=== PATIENT | male | born 1945 | race Caucasian/White ===

== ENCOUNTER → 2017-09-09 10:46 | Outpatient (CLI) | payer MEDICARE, BC, SELFPAY ==
[2017-09-09 12:37] LABS: AST(SGOT) 25 U/L (15-37); Alanine Aminotransfer ALT/SGPT 15 U/L (16-61); Albumin, Serum 3.8 g/dL (3.2-5.0); Alkaline Phosphatase 74 U/L (45-117); Anion Gap 6 (5-15); BUN 15 mg/dL (7-18); BUN/Creat Ratio 12.4 RATIO (10-20); Calcium,Total 8.8 mg/dL (8.5-10.1); Chloride 103 mmol/L (98-107); Creatinine, Serum 1.21 mg/dL (0.70-1.30); EST Glomerular Filtration Rate 63 mL/min (>60); Est Glom Filt Rate - Afr Amer 76 mL/min (>60); Glucose 96 mg/dL (74-106); Potassium 3.6 mmol/L (3.5-5.1); Protein, Total 7.8 g/dL (6.4-8.2); Sodium Level 139 mmol/L (136-145); Thyroid Stim Hormone (TSH) 2.79 uIU/mL (0.358-3.74)
== END ==
PROVIDERS: Visit Provider Family Medicine
DX: E03.9 Hypothyroidism, unspecified (principal); E78.5 Hyperlipidemia, unspecified
CPT/HCPCS: 36415; 80053; 84443

== ENCOUNTER → 2017-10-14 16:09 | Outpatient (CLI) | payer MEDICARE, BC, SELFPAY ==
--- NOTE | 2017-10-14 10:30 | LES_PTH ---
PATIENT: DAVID CASTANON LOC: [facility] U#:[id number] AGE/SX: 80/M ROOM: RE10/14/[address]: Dr. Sreedhar Gilman MD : 1945 BED: DIS: SPEC #: [id number] RECD: 10/14/17 14:31 STATUS: ZAKIA EVELYN #: [id number] JUAN RAMON: 10/14/17 10:[address]: Sreedhar Gilman DEPT: SURGICAL PATHOLOGY RECD BY: Shaila Nieto Tissues: A - Skin of arm B - Skin of back, NOS Procedures: Special Stain Group I Surgery Specimen Level IV GMS Stain (control) HEADER OPERATION: Suspicious lesion removal PRE-OP DIAGNOSIS: Suspicious lesion TISSUE SUBMITTED: A ? Left arm lesion, B ? Right mid back MICROSCOPIC DIAGNOSIS A. Left arm lesion, punch biopsy: Psoriasiform epidermal hyperplasia. Dermal chronic inflammation. Solar elastosis. Special stain for fungi is negative for organisms; matched control is appropriate. Negative for malignancy. B. Back lesion, biopsy: Seborrheic keratosis with focal verrucous features. Negative for malignancy. GABRIELA:anjel 10/15/17 MICROSCOPIC DESCRIPTION Slides are reviewed. GROSS DESCRIPTION A - Received in fixative is one container labeled with the patient's name and designated left arm. The specimen consists of a punch biopsy of staples-brown skin measuring 0.4 cm in diameter and 0.3 cm in length. The specimen is totally submitted in one cassette. B - Received in fixative is one container labeled with the patient's name and designated back lesion. The specimen consists of a disc-shaped piece of staples-brown skin measuring 0.7 cm in diameter and 0.2 cm in depth. The specimen is inked and submitted entirely in one cassette and will be sectioned at the time of embedding. / GABRIELA:anjel 10/14/17 TC:1 CPT: 81687 x2, [id number]
== END ==
PROVIDERS: Family Provider Family Medicine; PCP Family Medicine; Visit Provider Family Medicine
DX: L30.8 Other specified dermatitis (principal); L57.8 Other skin changes due to chronic exposure to nonionizing radiation; L82.1 Other seborrheic keratosis
CPT/HCPCS: 88305; 88312

== ENCOUNTER → 2018-04-21 13:51 | Outpatient (CLI) | payer MEDICARE, BC, SELFPAY ==
[2018-04-21 16:03] LABS: Anion Gap 6 (5-15); BUN 15 mg/dL (7-18); BUN/Creat Ratio 13.3 RATIO (10-20); Chloride 108 mmol/L (98-107); Cholesterol 174 mg/dL (200); Creatinine, Serum 1.13 mg/dL (0.70-1.30); EST Glomerular Filtration Rate 68 mL/min (>60); Est Glom Filt Rate - Afr Amer 82 mL/min (>60); Glucose 86 mg/dL (74-106); High Density Lipoprotein 37 mg/dL; Potassium 4.1 mmol/L (3.5-5.1); Sodium Level 142 mmol/L (136-145); Thyroid Stim Hormone (TSH) 0.25 uIU/mL (0.358-3.74); Triglycerides 167 mg/dL; Very Low Density Lipoprotein 33 mg/dL (5-40)
== END ==
PROVIDERS: Family Provider Family Medicine; PCP Family Medicine; Visit Provider Family Medicine
DX: I10 Essential (primary) hypertension (principal); E03.9 Hypothyroidism, unspecified
CPT/HCPCS: 36415; 80048; 80061; 84443

== ENCOUNTER → 2018-10-20 13:59 | Outpatient (CLI) | payer MEDICARE, BC, SELFPAY ==
[2018-10-20 16:29] LABS: Anion Gap 4 (5-15); BUN 18 mg/dL (7-18); BUN/Creat Ratio 14.3 RATIO (10-20); Calcium,Total 8.9 mg/dL (8.5-10.1); Chloride 108 mmol/L (98-107); Cholesterol 196 mg/dL (200); Creatinine, Serum 1.26 mg/dL (0.70-1.30); EST Glomerular Filtration Rate 60 mL/min (>60); Est Glom Filt Rate - Afr Amer 72 mL/min (>60); Free T3 2.7 pg/mL (2.18-3.98); Glucose 90 mg/dL (74-106); High Density Lipoprotein 41 mg/dL; Potassium 4.3 mmol/L (3.5-5.1); Sodium Level 140 mmol/L (136-145); T4 Total, Thyroxin 9.6 ug/dL (4.5-12.1); Triglycerides 131 mg/dL; Very Low Density Lipoprotein 26 mg/dL (5-40)
== END ==
PROVIDERS: Family Provider Family Medicine; PCP Family Medicine; Visit Provider Family Medicine
DX: I10 Essential (primary) hypertension (principal); E03.9 Hypothyroidism, unspecified
CPT/HCPCS: 36415; 80048; 80061; 84436; 84443; 84481

== ENCOUNTER → 2019-05-07 14:59 | Outpatient (CLI) | payer MEDICARE, BC, SELFPAY ==
[2019-05-07 16:31] LABS: Anion Gap 3 (5-15); BUN 19 mg/dL (7-18); BUN/Creat Ratio 14.2 RATIO (10-20); Calcium,Total 9.1 mg/dL (8.5-10.1); Chloride 106 mmol/L (98-107); Cholesterol 205 mg/dL (200); Creatinine, Serum 1.34 mg/dL (0.70-1.30); EST Glomerular Filtration Rate 56 mL/min (>60); Est Glom Filt Rate - Afr Amer 67 mL/min (>60); Glucose 94 mg/dL (74-106); High Density Lipoprotein 42 mg/dL; Potassium 4.3 mmol/L (3.5-5.1); Sodium Level 137 mmol/L (136-145); Thyroid Stim Hormone (TSH) 1.22 uIU/mL (0.358-3.74); Triglycerides 190 mg/dL; Very Low Density Lipoprotein 38 mg/dL (5-40)
== END ==
PROVIDERS: Family Provider Family Medicine; PCP Family Medicine; Referring Provider Family Medicine; Visit Provider Family Medicine
DX: E78.5 Hyperlipidemia, unspecified (principal); I10 Essential (primary) hypertension; E03.9 Hypothyroidism, unspecified
CPT/HCPCS: 36415; 80048; 80061; 84443

== ENCOUNTER → 2019-11-04 13:58 | Outpatient (CLI) | payer MEDICARE, BC, SELFPAY ==
[2019-11-04 16:00] LABS: Anion Gap 4 (5-15); BUN 17 mg/dL (7-18); BUN/Creat Ratio 13.4 RATIO (10-20); Calcium,Total 8.9 mg/dL (8.5-10.1); Chloride 107 mmol/L (98-107); Cholesterol 191 mg/dL (200); Creatinine, Serum 1.27 mg/dL (0.70-1.30); EST Glomerular Filtration Rate 59 mL/min (>60); Est Glom Filt Rate - Afr Amer 71 mL/min (>60); Free T3 2.9 pg/mL (2.18-3.98); Glucose 88 mg/dL (74-106); High Density Lipoprotein 44 mg/dL; Potassium 4.2 mmol/L (3.5-5.1); Sodium Level 139 mmol/L (136-145); Thyroid Stim Hormone (TSH) 1.39 uIU/mL (0.358-3.74); Triglycerides 149 mg/dL; Very Low Density Lipoprotein 30 mg/dL (5-40)
== END ==
PROVIDERS: PCP Family Medicine; Referring Provider Family Medicine; Visit Provider Family Medicine
DX: I10 Essential (primary) hypertension (principal); E03.9 Hypothyroidism, unspecified
CPT/HCPCS: 36415; 80048; 80061; 84443; 84481

== ENCOUNTER → 2020-05-05 13:57 | Outpatient (CLI) | payer MEDICARE, BC, SELFPAY ==
[2020-05-05 18:14] LABS: Anion Gap 4 (5-15); BUN 13 mg/dL (7-18); BUN/Creat Ratio 10.3 RATIO (10-20); Calcium,Total 9.1 mg/dL (8.5-10.1); Chloride 106 mmol/L (98-107); Cholesterol 197 mg/dL (200); Creatinine, Serum 1.26 mg/dL (0.70-1.30); EST Glomerular Filtration Rate 59 mL/min (>60); Est Glom Filt Rate - Afr Amer 72 mL/min (>60); Free T3 2.8 pg/mL (2.18-3.98); Glucose 87 mg/dL (74-106); High Density Lipoprotein 43 mg/dL; Potassium 4.5 mmol/L (3.5-5.1); Sodium Level 140 mmol/L (136-145); T4 Free Direct 1.78 ng/dL (0.76-1.46); Thyroid Stim Hormone (TSH) 1.86 uIU/mL (0.358-3.74); Triglycerides 172 mg/dL; Very Low Density Lipoprotein 34 mg/dL (5-40)
== END ==
PROVIDERS: PCP Family Medicine; Referring Provider Family Medicine; Visit Provider Family Medicine
DX: I10 Essential (primary) hypertension (principal); E03.9 Hypothyroidism, unspecified
CPT/HCPCS: 36415; 80048; 80061; 84439; 84443; 84481

== ENCOUNTER → 2020-11-04 15:36 | Outpatient (CLI) | payer MEDICARE, BC, SELFPAY ==
[2020-11-04 18:11] LABS: Anion Gap 3 (5-15); BUN 18 mg/dL (7-18); BUN/Creat Ratio 13.4 RATIO (10-20); Calcium,Total 9.1 mg/dL (8.5-10.1); Chloride 105 mmol/L (98-107); Cholesterol 203 mg/dL (200); Creatinine, Serum 1.34 mg/dL (0.70-1.30); EST Glomerular Filtration Rate 55 mL/min (>60); Est Glom Filt Rate - Afr Amer 67 mL/min (>60); Free T3 2.7 pg/mL (2.18-3.98); Glucose 92 mg/dL (74-106); High Density Lipoprotein 42 mg/dL; Potassium 4.4 mmol/L (3.5-5.1); Sodium Level 138 mmol/L (136-145); T4 Total, Thyroxin 9.1 ug/dL (4.5-12.1); Triglycerides 193 mg/dL; Very Low Density Lipoprotein 39 mg/dL (5-40)
== END ==
PROVIDERS: PCP Family Medicine; Visit Provider Family Medicine
DX: I10 Essential (primary) hypertension (principal); E03.9 Hypothyroidism, unspecified
CPT/HCPCS: 36415; 80048; 80061; 84436; 84443; 84481

== ENCOUNTER → 2021-02-03 08:13 | Outpatient (CLI) | payer MEDICARE, BC, SELFPAY ==
--- NOTE | 2021-02-03 08:14 | MRI_ITS ---
STUDY: MRI LUMBAR SPINE WITHOUT CONTRAST REASON FOR EXAM: Male, 75 years old. back pain TECHNIQUE: Standardized fat and water weighted pulse sequences were obtained in the sagittal and axial following administration of . COMPARISON: None FINDINGS: T12-L1: Normal endplates. Normal disc height, hydration and morphology. Normal bilateral facet joints. Normal central canal and bilateral lateral recesses. Normal bilateral intervertebral neural foramina. Conus medullaris terminates at T12-L1. Cauda equina is moderately to severely compressed at L4-L5. L1-2: Normal endplates. Normal disc height, hydration and morphology. Normal bilateral facet joints. Normal central canal and bilateral lateral recesses. Normal bilateral intervertebral neural foramina. L2-3: Normal endplates. Normal disc height, hydration and morphology. Normal bilateral facet joints. Normal central canal and bilateral lateral recesses. Normal bilateral intervertebral neural foramina. L3-4: Normal endplates. Normal disc height, hydration and mildly degenerative morphology. Normal bilateral facet joints. Normal central canal and bilateral lateral recesses. Foramina are mildly to moderately compressed. L4-5: Normal endplates. Normal disc height, hydration and degenerative morphology. Normal bilateral facet joints. Thecal sac is moderately to severely stenosed. Foramina are mildly stenotic. Lateral recesses are stenotic. L5-S1: Normal endplates. Normal disc height, hydration and morphology. Normal bilateral facet joints. Normal central canal and bilateral lateral recesses. Foramina are mildly to moderately compressed. Normal visualized sacral ala. Normal visualized paraspinous soft tissue structures. 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 Neurosurgical consultation advised. Electronically Signed: Irving Edmond MD at 18:32 EDT Tel , Service support ,
== END ==
PROVIDERS: PCP Family Medicine; Referring Provider Family Medicine; Visit Provider Family Medicine
DX: M54.9 Dorsalgia, unspecified (principal)
CPT/HCPCS: 72148

== ENCOUNTER 2021-05-23 10:21 | Observation (INO) | payer MEDICARE, BC, SELFPAY ==
--- NOTE | 2021-05-10 12:50 | EKG12_ITS ---
Test Reason : PREOP Blood Pressure : / mmHG Vent. Rate : 054 BPM Atrial Rate : 054 BPM P-R Int : 184 ms QRS Dur : 092 ms QT Int : 424 ms P-R-T Axes : 032 001 028 degrees QTc Int : 402 ms Sinus bradycardia with Premature supraventricular complexes Otherwise normal ECG Confirmed by JESSEE LEAL, LYNNETTE ([id number]), design editor EUGENE CABALLERO ([id number]) on 05/11/2021 9:35:24 AM Referred By: Myron Alonso Confirmed By:LYNNETTE HOOKS MD
[2021-05-10 13:45] LABS: Absolute Lymphocyte Count 2.68 X10^3/uL (0.83-4.51); Absolute Neutrophil Count 6.6 X10^3/uL (2.0-7.7); Basophil# 0.06 X10^3/uL; Basophil% 0.6 % (0-1); Eosinophil# 0.25 X10^3/uL; Eosinophils% 2.4 % (0-5); Hematocrit 39.5 % (40-54); Hemoglobin 12.6 g/dL (13.0-16.5); Lymphocyte # 2.68 X10^3/ul (0.83-4.51); Lymphocyte % 25.9 % (19-41); Mean Corp Hgb Conc 31.9 g/dL (32-36); Mean Corpuscular Hgb 31.2 pg (27.0-32.0); Mean Corpuscular Volume 97.8 fL (80-94); Mean Platelet Vol. 11.1 fl (6.2-12.0); Monocyte# 0.73 X10^3/uL; Monocyte% 7.1 % (0-10); NRBC Flagged by Analyzer 0 % (0-5); Neutrophil # 6.56 X10^3/uL (2.7-7.7); Neutrophil % 63.5 % (47-70); Platelet Count 176 K/mm3 (150-450); RBC Distribution Width CV 13.3 % (11.6-14.6); RBC Distribution Width SD 47.8 fl (35.1-43.9); Red Blood Count 4.04 M/mm3 (4.6-6.2); White Blood Count 10.3 K/mm3 (4.4-11.0)
[2021-05-10 13:56] LABS: International Normalized Ratio 1.1; Partial Thromboplast Time 26.8 Seconds (24.1-36.2); Prothrombin Time (Protime)PT. 13.1 SECONDS (11.7-14.9)
[2021-05-10 14:13] LABS: Magnesium 2.1 mg/dL (1.6-2.6)
[2021-05-10 14:33] LABS: Anion Gap 4 (5-15); BUN 22 mg/dL (7-18); BUN/Creat Ratio 15.8 RATIO (10-20); Calcium,Total 8.9 mg/dL (8.5-10.1); Chloride 106 mmol/L (98-107); Creatinine, Serum 1.39 mg/dL (0.70-1.30); EST Glomerular Filtration Rate 53 mL/min (>60); Est Glom Filt Rate - Afr Amer 64 mL/min (>60); Glucose 93 mg/dL (74-106); Potassium 4.1 mmol/L (3.5-5.1); Sodium Level 139 mmol/L (136-145)
[2021-05-10 15:00] LABS: HIV - WCH Non-Reactive (Nonreactive); Hepatitis B Surface Antibody Non-Reactive; Hepatitis C Antibody Non-Reactive (Nonreactive)
[2021-05-12 12:08] LABS: Thyroid Stim Hormone (TSH) 2.27 uIU/mL (0.358-3.74)
[2021-05-12 12:40] LABS: Hepatitis A AB, Total Negative (Negative)
--- NOTE | 2021-05-22 10:47 | HP.PCM_ITS ---
History and Physical Date of Admission: 05/23/21 [facility] [id number] [phone] OFFICE VISITDate of Service: 02/13/21 MR#:[id number]:[id number]: DAVID CASTANONRep #:[id number] Provider:Dr. Myron Alonso, DOAge/Sex: 75/M Location:[place]:Signed Intake Vital Signs 02/13/21 14:29 Height 6 ft Weight: 185 lb BMI 25.0 Intake Visit Reasons: LUMBAR SPINE Accompanied by: Spouse Is patient in pain?: Yes Allergies No Known Allergies Allergy (Verified 02/13/21 14:30) Medications L.acidophilus-B.lactis-B.longum 15 billion cell capsule 1 cap PO DAILY 02/13/21 [History Confirmed 02/13/21] aspirin 81 mg tablet,delayed release 81 mg PO DAILY 02/13/21 [History Confirmed 02/13/21] clopidogrel 75 mg tablet ea PO 02/13/21 [History Confirmed 02/13/21] coenzyme Q10 75 mg capsule 75 mg PO DAILY 02/13/21 [History Confirmed 02/13/21] latanoprost 0.005 % eye drops 1 drp OPHTHALMIC (EYE) DAILY ml 02/13/21 [History Confirmed 02/13/21] lisinopril 10 mg tablet ea PO 02/13/21 [History Confirmed 02/13/21] meloxicam 15 mg tablet 15 mg PO DAILY tab 02/13/21 [History Confirmed 02/13/21] nnzoaoxhzdsu-cqsjxtsd-yswbbc tablet 1 tab PO DAILY 02/13/21 [History Confirmed 02/13/21] omega-3 fatty acids 1,000 mg capsule 1,000 mg PO DAILY 02/13/21 [History Confirmed 02/13/21] pantoprazole 40 mg tablet,delayed release tablet PO 02/13/21 [History Confirmed 02/13/21] simvastatin 40 mg tablet ea PO 02/13/21 [History Confirmed 02/13/21] timolol maleate 0.5 % eye drops ml OPHTHALMIC (EYE) 02/13/21 [History Confirmed 02/13/21] [facility] Surgical History (Updated 02/13/21 @ 14:34 by Cary Cisneros) H/O arterial bypass of lower limb Family History (Updated 02/13/21 @ 14:34 by Cary Cisneros) Mother Cancer Social History household members: spouse housing: house Smoking Status: Former smoker alcohol intake: never what type of physical activity do you participate in: none do you feel safe at home: Yes HPI LUMBAR SPINE Details: Parts of this documentation were recorded by a scribe, this documen tation accurately reflects the service provided and the decisions made by me, Dr. Myron Alonso, DO 02/13/21 [id number]. DAVID CASTANON is a 75 year old M here today for Patient states pain has been ongoing for two months. Denies any accident or injury. Onset: two months. Patient has tried and failed pain medication, meloxicam, and muscle relaxers. Patient has been seeing a chiropractor, which has been relieving some of his pain. However, states the ache is constant. Pain is across his lumbar the runs to his right hip and gives him radiculopathy. Also reports sciatica. Patient has a lumbar spine MRI: 02/03/21. Patient has tried the following conservative treatments for six weeks or greater: RICE, OTC NSAIDs, home exercises provided by a provider, corticosteroid injections and oral corticosteroids, narcotic and non-narcotic analgesic medication(s), health care facility administrator, and spinal manipulation. Patient has found no relief and would like to further investigate their s/s. David is a most pleasant gentleman 75 years old and has a chief complaint of low back pain and pain that radiates mostly down his right leg. This started about 2 months ago. It was rather insidious in onset. Now he is having signs of neurogenic claudication. The more he walks the worse the right leg pain gets. If he sits down he gets relief. He denies any bowel or bladder he denies history of unexplained weight loss no fever sweats or chills. Examination he has pain with flexion more so than extension of his lumbar spine but he has reasonable motor strength of all the major muscle groups of both lower extremities. He has 1+ patellar reflexes bilaterally and absent Achilles reflexes bilaterally. He has no long tract signs. Clonus is absent Babinski's are downgoing. I reviewed his MRI scan that demonstrates that he has what I would call moderate spinal stenosis at L4-5 he may even be more like moderate plus but perhaps not quite severe. Nonetheless this is probably the etiology of his symptoms. I am recommending epidural steroid injections. We will send him to for that purpose. I would like to visit with him again 2 weeks after the epidural. Coding Level of Care Code Off vis,new,level 3 Diagnoses HTN (hypertension) I10 Spinal stenosis at L4-L5 level M48.061 Time Spent (min) 30 Assessment and Plan Assessment and Plan (1) HTN (hypertension): (2) Spinal stenosis at L4-L5 nicholase
[2021-05-23] VITALS (10 sets, daily range): BP systolic 111–150; BP diastolic 46–78; PULSE 49–68; RESP 16–18; TEMP 35.8–36.8; O2SAT 94–100; BMI 26.9
[2021-05-23] MEDS: Acetaminophen 500 MG Tablet 1000 MG PO (06:16)
[2021-05-23] MEDS: Lactated Ringers 1,000 ML 15 ML IV ×2 (06:17→10:45)
--- NOTE | 2021-05-23 07:30 | RAD_ITS ---
STUDY: X-RAY - LUMBAR SPINE REASON FOR EXAM: Male, 76 years old. DECOMPRESSION L4-5, RIGHT TECHNIQUE: 1 view(s) of the lumbar spine were obtained. COMPARISON: None FINDINGS: Localizing instrument is seen along the posterior aspect of the L4-L5 disc space level. RAD/Spine 1 View Any Level IMPRESSION: Localizing instrument is seen along the posterior aspect of the L4-L5 disc space level. Electronically Signed: Martin Terrazas MD at 13:15 EST , Service support ,
[2021-05-23] MEDS: Cefazolin 2 GM in 0.9% Normal Saline 100 ML IV (07:33)
[2021-05-23] MEDS: THROMBIN (RECOMBINANT) 20,000 UNIT VIAL 20000 UNIT TOPICAL (09:11)
[2021-05-23 09:35] LABS: Bedside Glucose 117 mg/dL (70-110)
--- NOTE | 2021-05-23 10:29 | OP.PCM_ITS ---
Report of Operation Date of Procedure: 05/23/21 Description of Surgical Findings:: Preoperative diagnosis: Severe spinal stenosis L4-5 Postoperative diagnosis: The same Procedure: Laminectomy decompression L4-5 CPT code 01176 Surgeon: Dr. Alonso hotel administrative assistant: Rin MATA Anesthesia: General endotracheal anesthesia administered by [facility] Estimated blood loss: Less than 30 cc Drains: Medium Hemovac Complications: None Procedure: Patient was taken to the OR where he was placed under general endotracheal anesthesia a Titus catheter was inserted neuro monitoring placed their leads and the patient the patient was then placed in the prone position on the Fabian frame. After appropriate positioning with care to protect the ulnar nerves of both elbows the brachial plexus bilaterally the facial features the genitalia of the cervical spine the back was prepped and draped in standard fashion I then made a longitudinal incision centered over L4-5. Subcutaneous tissues were incised length of the skin incision. First I elevated the paravertebral muscles off the spinous process of L4 and the top of the spinous process of L5 using cautery. An intraoperative x-ray was taken with a marker in place to confirm that we were indeed at the L4-5 level. Finished elevated the paravertebral muscles off the lamina out over the facet. Bleeders were controlled with cautery and thorough irrigation was carried out every 10 minutes in the course of this case. We then opened the opposite side on the right that is elevating the paravertebral muscles off the lamina and the spinous process of L4 all the way out to the facet. We also elevated it off of the top of the L5 lamina. The super slide retractors were then put in place. Again frequent irrigation was carried out to prevent infection. Using double-action rongeurs were removed the spinous process of L4 and thin down the lamina with a double- action rongeurs bleeding bone was controlled with bone wax. I then elevated the ligamentum flavum off the underside of the lamina of L4. This was bilateral. I then completed the laminectomy on both sides with 45 degree Kerrison rongeurs. And then released the ligamentum flavum off the top of the lamina of L5 and performed laminectomy of just the top of L5 on both the right and left. I then split the ligamentum flavum in the middle and began its removal with 45 degree Kerrison rongeurs I work from the left side first removing part of the left side of the ligamentum flavum and all of the right side ligamentum flavum all the way out to the lateral recess. This included some removal of bone. Care was taken taken to protect the area throughout the procedure including the use of cottonoids at times. Once the right side was completely open including the foramina I moved to the opposite side of the table. Working from the right side I then decompressed the left side and opened up the lateral recess in the same fashion. I had removed almost all the ligamentum flavum. I also checked the foramen found the pedicle and when out the foramen it was quite open. Again thorough irrigation was carried out. We then left a amnionic membrane directly on the dura and nerve root. This prevents adhesions in the future. I placed Gelfoam over the top of that. A medium Hemovac drain was then inserted. And closure was begun. I closed the lumbar fascia using tuqpsv-ym-rimeg suture with #1 Vicryl followed by closure of subcutaneous tissues with 2-0 Vicryl in interrupted fashion. The skin was approximated using skin clips. Sterile dressings were then applied. The patient was then recovered in the OR and moved to his hospital bed and taken to recovery. Note that the patient was an inordinate amount of pain in recovery making it necessary to perhaps keep him overnight for pain control that he could not have at home. Is the end of operative summary on Yunior Foley. This is Dr. Alonso dictating.
--- NOTE | 2021-05-23 12:49 | PCS.PANDOC ---
PANDEMIC DOCUMENTATION INITIATED: Date: 02/27/2021 Time: 190
[2021-05-23] MEDS: Lactated Ringers 1,000 ML 100 ML IV ×2 (13:41→23:27)
--- NOTE | 2021-05-23 15:16 | PN_ITS ---
Documented by User: LAURA Pedersen 05/23/21 15:33 Progress Note Patient seen and examined. Patient sitting in bed no distress noted. Patient underwent a laminectomy decompression of the L4-L5 with Dr. Neil today. Per Dr. Alonso's note patient was kept overnight for pain control, patient currently not complaining of any pain. Physical Exam Const alert, oriented x3 and no apparent distress HEENT normocephalic and head/scalp atraumatic Eyes conjunctivae normal and no scleral icterus Neck full ROM and supple General: trachea midline Chest inspection of chest normal Resp normal respiratory effort, normal air movement and clear to auscultation bilaterally Cardio regular rate, regular rhythm, S1 normal heart sound, S2 normal heart sound and peripheral pulses 2+ throughout GI normal to inspection, nondistended, normoactive bowel sounds, soft to palpation and non-tender Back/Spine Cervical Spine: cervical ROM normal Thoracic Spine / Upper Back: normal to inspection Lumbar Spine / Lower Back: ROM limited Extremity normal to inspection Skin no rashes or lesions noted Wounds: wounds noted Wound Narrative: Surgical incision to lower back not visualized due to dressings, dry and intact Psych mental status grossly normal, thought process normal, cooperative and affect normal Assessment & Plan Assessment/Plan (1) Spinal stenosis at L4-L5 level: PLAN: 1. Hypertension -Continue lisinopril -Vital signs per protocol, trend BP. Vital signs currently stable 2. Hyperlipidemia -Continue simvastatin -Last lipid panel 11/05/2019 within normal limits with exception of cholesterol 203 3. History of arterial bypass of lower limb -Continue aspirin and Plavix 4. Hypothyroidism -Continue levothyroxine 5. Lumbar decompression of the L4 and L5 -Continue gabapentin -Pain management regimen as ordered by surgeon DVT prophylaxis-SCDs This patient was seen by LAURA Pedersen under the supervision of Dr. Lloyd. Documented by User: Dr. Taiwo Lloyd DO 05/23/21 17:02 Addendum Addendum: Patient was seen and examined today independently of Geovanna Laguerre, he underwent an L4-5 laminectomy decompression today, he appears stable at this time. Patient's past medical history includes peripheral vascular disease, essential hypertension, and spinal stenosis. On examination he appeared in good health and spirits. Vital signs as document ed. Skin warm and dry and without overt rashes. Neck without JVD, neck was supple, trachea midline, thyroid was normal. Lungs clear bilaterally, normal air movement was noted. Heart exam notable for regular rhythm, normal sounds and absence of murmurs, rubs or gallops. Abdomen unremarkable and without evidence of organomegaly, masses, or abdominal aortic enlargement. Bowel sounds are present, abdomen is not distended. Extremities nonedematous, no cyanosis was noted, no clubbing was noted. Neuro: Cranial nerves II through XII are grossly intact, no focal motor deficits were noted, sensation to light touch and pinprick intact, motor exam 5/5 throughout. Psych: Patient is alert and oriented x3, he does not appear anxious or depressed, he does not appear agitated. Patient appears stable at this time, I have reviewed Geovanna Laguerre's progress note including her medical assessment and plan of care and endorse it. Visit Charges Inpatient E&M: 81821 Subs Hosp L2
[2021-05-23] MEDS: Gabapentin 300 MG Capsule PO ×2 (15:41→21:23)
[2021-05-23] MEDS: Ensure Surgery 237 ML LIQUID PO (15:43)
[2021-05-23] MEDS: Cefazolin 1 GM/50 ML BAG IV ×2 (15:54→23:16)
[2021-05-23] MEDS: Morphine 2 MG/ML Syringe IV ×2 (15:54→17:46)
--- NOTE | 2021-05-23 19:03 | NURSING ---
Assisted patient back into bed from chair with standby assist. patient tolerated very well. patient denies further needs at this time.
[2021-05-23] MEDS: Morphine 4 MG/ML Syringe IV ×2 (21:22→23:46)
[2021-05-23] MEDS: Atorvastatin Calcium 20 MG Tablet PO (21:23)
[2021-05-24 03:47] VITALS: BP 125/60; PULSE 69; RESP 18; TEMP 37.2; O2SAT 97
[2021-05-24] MEDS: Gabapentin 300 MG Capsule PO ×2 (05:50→13:48)
[2021-05-24] MEDS: Levothyroxine 88 MCG Tablet PO (05:51)
[2021-05-24] MEDS: Morphine 4 MG/ML Syringe IV (05:53)
[2021-05-24 07:13] LABS: Absolute Lymphocyte Count 1.38 X10^3/uL (0.83-4.51); Absolute Neutrophil Count 7.3 X10^3/uL (2.0-7.7); Basophil# 0.04 X10^3/uL; Basophil% 0.4 % (0-1); Eosinophil# 0.21 X10^3/uL; Eosinophils% 2.2 % (0-5); Hemoglobin 11.3 g/dL (13.0-16.5); Lymphocyte # 1.38 X10^3/ul (0.83-4.51); Lymphocyte % 14.3 % (19-41); Mean Corp Hgb Conc 33.2 g/dL (32-36); Mean Corpuscular Hgb 32.7 pg (27.0-32.0); Mean Corpuscular Volume 98.3 fL (80-94); Mean Platelet Vol. 11.5 fl (6.2-12.0); Monocyte# 0.72 X10^3/uL; Monocyte% 7.5 % (0-10); NRBC Flagged by Analyzer 0 % (0-5); Neutrophil # 7.25 X10^3/uL (2.7-7.7); Neutrophil % 75.4 % (47-70); Platelet Count 166 K/mm3 (150-450); RBC Distribution Width CV 13.3 % (11.6-14.6); RBC Distribution Width SD 47.5 fl (35.1-43.9); Red Blood Count 3.46 M/mm3 (4.6-6.2); White Blood Count 9.6 K/mm3 (4.4-11.0)
[2021-05-24 07:15] VITALS: O2SAT 97
[2021-05-24 07:41] LABS: Anion Gap 5 (5-15); BUN 24 mg/dL (7-18); Calcium,Total 8.6 mg/dL (8.5-10.1); Chloride 104 mmol/L (98-107); EST Glomerular Filtration Rate 49 mL/min (>60); Est Glom Filt Rate - Afr Amer 59 mL/min (>60); Glucose 122 mg/dL (74-106); Potassium 4.4 mmol/L (3.5-5.1); Sodium Level 136 mmol/L (136-145)
[2021-05-24 10:09] VITALS: BP 118/56; PULSE 86; RESP 16; TEMP 37.1; O2SAT 95
[2021-05-24] MEDS: Pantoprazole Sodium 40 MG Tablet PO (10:14)
[2021-05-24] MEDS: Lisinopril 10 MG Tablet PO (10:14)
[2021-05-24] MEDS: Senna/Docusate Sodium 1 Tablet 2 TABLET PO (10:15)
[2021-05-24] MEDS: Timolol 0.5% 5ML OPTH.BTL 1 DRP RIGHT EYE (10:15)
[2021-05-24] MEDS: oxyCODONE 5 MG Tablet PO (10:18)
--- NOTE | 2021-05-24 10:18 | PCM.PN.HOSP ---
Subjective Subjective Follow-up on post-op medical management: Patient was seen and examined. He feels much improved. Pain is fairly controlled. He has been moving around with therapy. Objective Data Objective Data Vital Signs: Vital Signs Temp Pulse Resp BP Pulse Ox 98.7 F 86 16 118/56 L 95 05/24/21 10:09 05/24/21 10:09 05/24/21 10:09 05/24/21 10:09 05/24/21 10:09 Oxygen Flow Rate (L/min) 4 Oxygen Delivery Method Room Air Weight: 90 kg Body Mass Index (BMI) 26.9 Intake & Output: Intake and Output for Last 24 Hours 05/22/21 05/23/21 05/24/21 23:59 23:59 23:59 Intake Total 3622.42 / 3622.42 655 / 655 Output Total 2795 / 2795 405 / 405 Balance 827.42 / 827.42 250 / 250 Lab / Micro Data Result Diagrams: 05/24/21 06:40 05/24/21 06:40 Labs: Laboratory Results - last 24 hr 05/24/21 06:40: WBC 9.6, RBC 3.46 L, Hgb 11.3 L, Hct 34.0 L, MCV 98.3 H, MCH 32.7 H, MCHC 33.2, RDW Std Deviation 47.5 H, RDW Coeff of Jesse 13.3, Plt Count 166, MPV 11.5, Immature Gran % (Auto) 0.200, Neut % (Auto) 75.4 H, Lymph % (Auto) 14.3 L, [place] % (Auto) 7.5, Eos % (Auto) 2.2, Baso % (Auto) 0.4, Absolute Neuts (auto) 7.3, Absolute Lymphs (auto) 1.38, Nucleated RBC % 0 05/24/21 06:40: Sodium 136, Potassium 4.4, Chloride 104, Carbon Dioxide 27.0, Anion Gap 5, BUN 24 H, Creatinine 1.50 H, Estim Creat Clear Calc 46.70, Est GFR (MDRD) Af Amer 59 L, Est GFR (MDRD) Non-Af 49 L, BUN/Creatinine Ratio 16.0, Glucose 122 H, Calcium 8.6 Micro: Microbiology 05/22/21 14:20 Interface Orders SARS-CoV-2 Antigen (Rapid) - Final 05/10/21 13:07 Interface Orders Nasal Screen MRSA/MSSA - Final Radiography Diagnostic Testing: Radiology Impression Spine X-Ray 05/23/21 07:30 IMPRESSION: Localizing instrument is seen along the posterior aspect of the L4-L5 disc space level. Electronically Signed: Martin Terrazas MD at 13:15 EST , Service support , Physical Exam Narrative Physical exam: General: Alert, Oriented x3, Cooperative, mild pain HEENT: Atraumatic Oral: Moist Mucosa Neck: Supple Lungs: Clear to auscultation Cardiovascular: HS I+II, regular, no murmurs Abdomen: Bowel Sounds Present, Soft, Non Tender Extremities: No edema Assessment & Plan Assessment/Plan (1) Spinal stenosis at L4-L5 level: PLAN: 1. POD #1 s/p laminectomy for severe spinal stenosis L4-L5 Pain is fairly controlled, continue gabapentin, oxycodone 2. Rest of chronic medical conditions remained stable?hypertension, hyperlipidemia, PAD status post stent, hypothyroidism 3. DVT PPx- SCDs Charges/Coding Visit Charges Inpatient E&M: 46978 Subs Hosp L2
--- NOTE | 2021-05-24 12:41 | CASEMGMT ---
RN [facility] MANAGER PEDIATRIC CM to room to meet with patient for initial transition planning/care coordination assessment. CAYETANO ALONZO introduced self and role at [facility]. Pt voices understanding and consents to assessment at this time. Pt resting in bed in no distress at this time. @ bedside. Pt is A/O at this time and answers all questions appropriately. Care providers, pharmacy, and demographics verified/updated at this time. PCP: Dr Gilman Specialists: Dr Salinas, Sees a Straddle Bug Driver @ [facility] [place]--pt and do not remember his name Preferred Pharmacy: [facility] Retail Insurance: [employer] Prescription Benefit: Yes Living Will/HPOA: Pt has AD from [place]. /pt made aware these would not be accepted in [place]. states she has [place] forms already that they will complete on their own. She denies wanting any additional information and does not wish to talk w/SW. LNOK:Shirley Living Arrangements: Lives w/ in 2-story home w/2 steps to enter. Plans to stay on 1st floor for a few days. Independent prior to surgery. able to assist as needed. Transportation: Pt states drives self and states no transportation concerns at this time. also drives DME: Denies using any DME and denies needs. Ambulating w/out use of DME HHC/SNF: No hx of either. Denies need for HHC and no needs identified. Pt wishes to return home and states has no concerns with going home at time of discharge. CM to follow for any discharge planning/needs. Pt/ voice no concerns/needs at this time. Advised pt to ask for CM if any questions/concerns/needs arise. Voices understanding. PLAN: Home w/spousal support and discharge plans in place [facility] form explained to pt and re: Observation status for treatment of lumbar decompression L4-5. Explained hospitalization will be paid per his insurance policy for Outpatient billing and condition will continue to be evaluated for Inpt necessity. Also let pt know that [facility] sends paper in the billing packet with their phone number if questions arise. Discussed Pharmacy section of [facility] form and self administered medication guideline. Pt/ verbalize understanding and do not have further questions. Form signed, copy made and placed in chart, and original given to pt and . Greg WINSLOW RN, CM
--- NOTE | 2021-05-24 13:26 | PCM.DC.SUM ---
Providers Date of Admission: 05/23/21 Primary Care Physician: Dr. Sreedhar Gilman MD Consultations 05/23/21 10:35 Consult: Hospitalist Routine Consulting Provider: Nury Alicea Reason for Consult: Medical Management EMERGENT Consult: No MD Notified: Yes Date Notified: 05/23/21 Time Notified: 14:34 Method of Notification: via text Reason For Visit: LUMBAR DECOMPRESSION L4-5 Diagnosis Discharge Diagnosis (1) Spinal stenosis at L4-L5 level: Status: Acute Code(s): M48.061 - Spinal stenosis, lumbar region without neurogenic claudication Medications at Discharge Home Medications L.acidophilus-B.lactis-B.longum 15 billion cell capsule 1 cap PO DAILY 02/13/21 aspirin 81 mg tablet,delayed release 81 mg PO DAILY 02/13/21 clopidogrel 75 mg tablet 1 ea PO DAILY 02/13/21 coenzyme Q10 75 mg capsule 75 mg PO DAILY 02/13/21 latanoprost 0.005 % eye drops 1 drp OPHTHALMIC (EYE) DAILY ml 02/13/21 lisinopril 10 mg tablet 10 mg PO DAILY 02/13/21 wxqqonwrymas-xxqeytcy-alarjh tablet 1 tab PO DAILY 02/13/21 omega-3 fatty acids 1,000 mg capsule 1,000 mg PO DAILY 02/13/21 pantoprazole 40 mg tablet,delayed release 40 mg PO DAILY 02/13/21 simvastatin 40 mg tablet 40 mg PO QHS 02/13/21 timolol maleate 0.5 % eye drops 1 drp OPHTHALMIC (EYE) DAILY 02/13/21 gabapentin 100 mg capsule 300 mg PO TID cap 03/29/21 levothyroxine 88 mcg PO DAILY 05/10/21 hydrocodone 7.5 mg-acetaminophen 325 mg tablet 1 tab PO Q6H PRN 7 Days #30 tab 05/24/21 Hospital Course Summary of Care Provided Hospital Course: This is Dr. Alonso discharging [place]. This patient was admitted yesterday the ninth has been discharged today 24 May. The date of admission he underwent a lumbar laminectomy decompression at L4-5. He tolerated the procedure well. The chest dressing is changed today the drain is removed. He is healing well. He relates that once he was up and walking today that his leg pain is completely gone. He was given postop standard protocol for laminectomies regarding his activities. He was told that he can eat regular diet. He is not to drive until I see him again in the office. They already have an appointment to see me. He has been given hydrocodone for pain. This is the end of discharge summary on Yunior Foley. This is Dr. Alonso dictating. Weight / BMI Weight Weight: 198 lb 6.656 oz Body Mass Index (BMI) 26.9 ABG / Lab / Microbiology Data Result Diagrams: 05/24/21 06:40 05/24/21 06:40 Laboratory: Laboratory Results - last 24 hr 05/24/21 06:40: WBC 9.6, RBC 3.46 L, Hgb 11.3 L, Hct 34.0 L, MCV 98.3 H, MCH 32.7 H, MCHC 33.2, RDW Std Deviation 47.5 H, RDW Coeff of Jesse 13.3, Plt Count 166, MPV 11.5, Immature Gran % (Auto) 0.200, Neut % (Auto) 75.4 H, Lymph % (Auto) 14.3 L, [place] % (Auto) 7.5, Eos % (Auto) 2.2, Baso % (Auto) 0.4, Absolute Neuts (auto) 7.3, Absolute Lymphs (auto) 1.38, Nucleated RBC % 0 05/24/21 06:40: Sodium 136, Potassium 4.4, Chloride 104, Carbon Dioxide 27.0, Anion Gap 5, BUN 24 H, Creatinine 1.50 H, Estim Creat Clear Calc 46.70, Est GFR (MDRD) Af Amer 59 L, Est GFR (MDRD) Non-Af 49 L, BUN/Creatinine Ratio 16.0, Glucose 122 H, Calcium 8.6 Microbiology: Microbiology 05/22/21 14:20 Interface Orders SARS-CoV-2 Antigen (Rapid) - Final 05/10/21 13:07 Interface Orders Nasal Screen MRSA/MSSA - Final Meaningful Use Info Meaningful Use Diagnoses (Choose all that apply): None applicable Discharge Plan Admission Admit Date/Time: 05/23/21 10:21 Attending Provider: Myron Alonso Primary Care Provider: Sreedhar Gilman Consulting Providers: Ciaty Man ; Anna Okeefe ; Jorge Fong ; Shelby Moore ; Tristian Kelley ; Wilfredo Dan ; Abundio Guevara ; Sammi Brito ; Thomas Brito ; Americo Culver ; Vince Enriquez ; Stefano Lucas ; Gisela Yin ; Taiwo Lloyd ; Kassidy Luciano ; Zak Leiva ; Isidoro Ramos ; Tobi Kang ; Sreedhar Gilman ; Staci Charles PUBLIC HEALTH TECHNICIAN ; Brielle Laguerre ; Vanessa Carlos NP ; Taiwo Zazueta PUBLIC HEALTH TECHNICIAN ; Sonia Keller ; Pam Camarillo Discharge Orders/Prescriptions Prescriptions: No Action timolol maleate 0.5 % drops 1 drp ophthalmic (eye) DAILY RF: 0 pantoprazole [Protonix] 40 mg tablet,delayed release (DR/EC) 40 mg PO DAILY RF: 0 clopidogrel [Plavix] 75 mg tablet 1 ea PO DAILY RF: 0 simvastatin 40 mg tablet 40 mg PO QHS RF: 0 lisinopril 10 mg tablet 10 mg PO DAILY RF: 0 latanoprost 0.005 % drops 1 drp ophthalmic (eye) DAILY RF: 0 aspirin [Adult Aspirin Regimen] 81 mg tablet,delayed release (DR/EC) 81 mg PO DAILY RF: 0 uxaggmctkseo-zmlisojs-rhclst Tablet 1 tab PO DAILY RF: 0 omega-3 fatty acids [Fish Oil Concentrate] 1,000 mg capsule 1,000 mg PO DAILY RF: 0 Ultra CoQ10 75 mg capsule 75 mg PO DAILY RF: 0 Florajen Digestion 15 billion cell capsule 1 cap PO DAILY RF: 0 gabapentin 100 mg capsule 300 mg PO TID RF: 0 levothyroxine 88 mcg tablet 88 mcg PO DAILY RF: 0 hydrocodone-acetaminophen 7.5-325 mg tablet 1 tab PO Q6H PRN (Reason: pain) 7 Days Qty: 30 RF: 0 Other Ambulatory Orders: Liver Profile (Routine) Timeframe: 1 Day Facility: [facility] - Location: Laboratory Ordered By: Dr. Christiano Barros 12 Lead EKG (Routine) Location: None Selected Ordered By: Dr. Myron Alonso Referrals / Follow Up: Sreedhar Gilman MD [Primary Care Provider] - Disposition Disposition (needs filled in before D/C Order can be placed): Home, Self Care
[2021-05-24 15:03] VITALS: BP 130/45; PULSE 68; RESP 16; TEMP 36.4; O2SAT 94
--- NOTE | 2021-05-24 15:07 | PCM.PN.HOSP ---
Subjective Subjective Patient states he did not have a great night secondary to pain but he is anxious to go home as long as he is able to tolerate it. Objective Data Objective Data Vital Signs: Vital Signs Temp Pulse Resp BP Pulse Ox 97.5 F L 68 16 130/45 H 94 05/24/21 15:03 05/24/21 15:03 05/24/21 15:03 05/24/21 15:03 05/24/21 15:03 Oxygen Flow Rate (L/min) 4 Oxygen Delivery Method Room Air Weight: 90 kg Body Mass Index (BMI) 26.9 Intake & Output: Intake and Output for Last 24 Hours 05/22/21 05/23/21 05/24/21 23:59 23:59 23:59 Intake Total 3622.42 / 3622.42 737.5 / 737.5 Output Total 2795 / 2795 755 / 755 Balance 827.42 / 827.42 -17.5 / -17.5 Lab / Micro Data Result Diagrams: 05/24/21 06:40 05/24/21 06:40 Labs: Laboratory Results - last 24 hr 05/24/21 06:40: WBC 9.6, RBC 3.46 L, Hgb 11.3 L, Hct 34.0 L, MCV 98.3 H, MCH 32.7 H, MCHC 33.2, RDW Std Deviation 47.5 H, RDW Coeff of Jesse 13.3, Plt Count 166, MPV 11.5, Immature Gran % (Auto) 0.200, Neut % (Auto) 75.4 H, Lymph % (Auto) 14.3 L, [place] % (Auto) 7.5, Eos % (Auto) 2.2, Baso % (Auto) 0.4, Absolute Neuts (auto) 7.3, Absolute Lymphs (auto) 1.38, Nucleated RBC % 0 05/24/21 06:40: Sodium 136, Potassium 4.4, Chloride 104, Carbon Dioxide 27.0, Anion Gap 5, BUN 24 H, Creatinine 1.50 H, Estim Creat Clear Calc 46.70, Est GFR (MDRD) Af Amer 59 L, Est GFR (MDRD) Non-Af 49 L, BUN/Creatinine Ratio 16.0, Glucose 122 H, Calcium 8.6 Micro: Microbiology 05/22/21 14:20 Interface Orders SARS-CoV-2 Antigen (Rapid) - Final 05/10/21 13:07 Interface Orders Nasal Screen MRSA/MSSA - Final Physical Exam Const alert, oriented x3, no apparent distress and average body habitus Exam Limitations: no limitations Nutritional Appearance: overweight HEENT head/scalp atraumatic, moist oral mucous membranes and oropharynx normal HEENT Narrative: Mallampati 2, no thrush Head and Scalp: normocephalic Resp normal respiratory effort, no retractions, no use of accessory muscles and clear to auscultation bilaterally Cardio regular rate, regular rhythm, S1 normal heart sound, S2 normal heart sound, no murmurs, no rub, no gallops, no clicks and no JVD GI normal to inspection, nondistended, normoactive bowel sounds, soft to palpation, non-tender and non-distended Extremity no clubbing, cyanosis or edema Extremity Narrative: Lumbar drain in place with minimal drainage Peripheral Pulses: Yes pulses 2+ throughout Neuro oriented x3, moves all extremities and no focal motor deficits Sensorium / Orientation: awake and alert Speech: speech normal Psych affect normal Assessment & Plan Assessment/Plan (1) Spinal stenosis at L4-L5 level: PLAN: Assessment: Spinal stenosis at L4-L5 status post laminectomy decompression
== END 2021-05-24 15:24 | disposition home or self-care (01) ==
LOC: MS2 16:17
PROVIDERS: Anesthesiology; Nurse Practitioner Family; Admitting Provider Orthopaedic Surgery; PCP Family Medicine; Referring Provider Orthopaedic Surgery; Visit Provider Orthopaedic Surgery
PROC: (CPT 63030; principal; 2021-05-23 07:00)
DX: M48.061 Spinal stenosis, lumbar region without neurogenic claudication (principal); K21.9 Gastro-esophageal reflux disease without esophagitis; I10 Essential (primary) hypertension; E78.5 Hyperlipidemia, unspecified; E03.9 Hypothyroidism, unspecified; I49.1 Atrial premature depolarization; I73.9 Peripheral vascular disease, unspecified; Z79.899 Other long term (current) drug therapy; Z01.818 Encounter for other preprocedural examination; Z79.02 Long term (current) use of antithrombotics/antiplatelets; Z79.82 Long term (current) use of aspirin; Z87.891 Personal history of nicotine dependence; Z86.2 Personal history of diseases of the blood and blood-forming organs and certain disorders involving the immune mechanism
CPT/HCPCS: 00670; 63047; 36415; 72020; 80048; 82962; 83735; 84443; 85025; 85610; 85730; 86703; 86706; 86708; 86803; 87081; 87426; 93005; 96361; 96365; 96366; 96375; 96376; 97162; 97530; 99218; 99251; C9803; J7120; G0378; G0463; J2405

== ENCOUNTER → 2021-05-29 15:03 | Outpatient (CLI) | payer MEDICARE, BC, SELFPAY ==
--- NOTE | 2021-05-29 15:08 | RAD_ITS ---
STUDY: X-RAY RIGHT FOOT, FIRST TOE REASON FOR EXAM: Male, 76 years old. Ulceration of first toe. TECHNIQUE: 3 view(s) of the toe were obtained. COMPARISON: None. FINDINGS: Osteopenia. Mild osteoarthrosis of the MTP and IP joints. Diffuse soft tissue swelling. RAD/Toe(s) Min 2 Views IMPRESSION: Osteopenia with osteoarthritic changes and diffuse soft tissue swelling. No bone erosion to suggest osteomyelitis. Electronically Signed: Jorge Cao MD at 9:23 EST , Service support ,
== END ==
PROVIDERS: PCP Family Medicine; Referring Provider Family Medicine; Visit Provider Family Medicine
DX: E11.621 Type 2 diabetes mellitus with foot ulcer (principal); L97.519 Non-pressure chronic ulcer of other part of right foot with unspecified severity
CPT/HCPCS: 73660

== ENCOUNTER 2021-07-20 08:41 | Outpatient (CLI) | payer MEDICARE, BC, SELFPAY ==
--- NOTE | 2021-07-20 08:54 | ADU_ITS ---
Reason For Study: atherosclerosis Right Velocities Left Velocities Ext. Iliac Artery, dist = 138.1 cm./sec. Ext Iliac Artery, dist = 218.6 cm./sec. Common Femoral Artery, mid = 107.0 cm./sec. Common Femoral Artery, mid = 176.6 cm./sec. Unable to demonstrate flow in the SFA or bypass Prox anast 279.9 cm/s. graft. Prox graft 72.3 cm/s. Profunda Femoral Artery = 116.1 cm./sec. Mid graft 68.9 cm/s. Popliteal Artery, mid = 21.5 cm./sec. Dist graft 65.0 cm/s. Post. Tibial Artery, prox = 46.8 cm./sec. Dist anast 77.8 cm/s. Post. Tibial Artery, mid = 66.6 cm./sec. Profunda Femoral Artery = 218.6 cm./sec. Post. Tibial Artery, dist = 30.3 cm./sec. Popliteal Artery, mid = 112.5 cm./sec. Ant. Tibial Artery, prox = 27.0 cm./sec. Post. Tibial Artery, prox = 94.2 cm./sec. Ant. Tibial Artery, mid = 38.0 cm./sec. Post Tibial Artery, mid = 114.2 cm./sec. Ant. Tibial Artery, dist = 11.6 cm./sec. Post Tibial Artery, dist. = 92.3 cm./sec. Unable to demonstrate flow in the Peroneal Art. Ant.Tibial Artery, prox = 81.8 cm./sec. Ant Tibial Artery, mid = 68.6 cm./sec. Ant. Tibial Artery, distal = 59.1 cm./sec. Unable to demonstrate flow in the Peroneal art. Procedure The exam was diagnostic. Exam performed in department. 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 Collateral flow to the popliteal artery and through the posterior tib and anterior tibial artery. Peroneal artery appears occluded. Left lower extremity with no evidence of significant occlusive disease with patent bypass graft and outflow. Peroneal artery occluded in the left leg. Ordering Physician: Malcolm Acuna Performed By: iMn Giordano RVT
--- NOTE | 2021-07-20 08:58 | VDLE_ITS ---
Reason For Study: pain and swelling RIGHT GSV is normal. CFV is compressible, spontaneous, phasic, competent and demonstrates normal augmentation. FV is compressible, spontaneous, phasic, competent and demonstrates normal augmentation. POP V is compressible, spontaneous, phasic, competent and demonstrates normal augmentation. T/P Trunk is compressible. PTV is compressible. RT PerV is compressible. Procedure This is a venous duplex using B-mode, color flow and spectral Doppler. Exam performed in department. The exam was abbreviated due to the COVID 19 protocol. Images for Venous duplex scan can be seen on the pt's Arterial scan done 07/20/21. The exam was diagnostic. A preliminary report was called and/or faxed to Dr. Acuna. VL/Venous Duplex US, Unilateral Interpretation Summary Limited right lower extremity ultrasound with no evidence of DVT visualized. Ordering Physician: Malcolm Acuna Performed By: Min Giordano RVT
--- NOTE | 2021-07-20 08:59 | ART_ITS ---
Reason For Study: atherosclerosis Procedure A bilateral lower extremity continuous wave Doppler with analog waveform analysis and ankle brachial indexes. Prelim called to Dr. Joseph office. Left Segmental Pressures Left brachial= 149mmHg. Left posterior tibial artery = 144mmHg. Left dorsalis pedis artery = 148mmHg. Left digit = 114 mmHg. The left dorsalis pedis waveforms are triphasic. The left posterior tibial artery waveforms are triphasic. Right Segmental Pressures Right brachial= 146mmHg. Right posterior tibial artery = 54mmHg. Right dorsalis pedis artery = 54mmHg. Right digit = 19 mmHg. The right dorsalis pedis waveforms are monophasic. The right posterior tibial artery waveforms are monophasic. Indices The right ankle brachial index by the dorsalis pedis is .36. The right ankle brachial index by the posterior tibial artery is .36. The right digital-brachial index is .13. The left ankle brachial index by the dorsalis pedis is .99. The left ankle brachial index by the posterior tibial artery is .97. The left digital-brachial index is .77. VL/Ankle Brachial Index Interpretation Summary Right lower extremity with monophasic flow and severe occlusive disease at rest with an JUS 0.36. Left lower extremity with no evidence of significant occlusive disease at rest with triphasic flow and an JUS 0.99. Ordering Physician: Malcolm Acuna Performed By: Min Giordano RVT
== END 2021-07-20 23:59 | disposition short-term general hospital (02) ==
LOC: CVS 08:47
PROVIDERS: PCP Family Medicine; Referring Provider Surgery Vascular Surgery; Visit Provider Surgery Vascular Surgery
DX: M79.89 Other specified soft tissue disorders (principal); I70.213 Atherosclerosis of native arteries of extremities with intermittent claudication, bilateral legs; I77.1 Stricture of artery; I73.9 Peripheral vascular disease, unspecified; M79.604 Pain in right leg; I10 Essential (primary) hypertension; E78.00 Pure hypercholesterolemia, unspecified; K21.9 Gastro-esophageal reflux disease without esophagitis; E07.9 Disorder of thyroid, unspecified
CPT/HCPCS: 93922; 93925; 93971

== ENCOUNTER → 2021-08-30 15:02 | Outpatient (CLI) | payer MEDICARE, BC, SELFPAY ==
[2021-08-30 16:19] LABS: PSA,Total- Diagnostic 0.81 ng/mL (0.0-4.0)
== END ==
PROVIDERS: PCP Family Medicine; Visit Provider Registered Nurse
DX: R31.29 Other microscopic hematuria (principal)
CPT/HCPCS: 36415; 84153

== ENCOUNTER 2021-09-06 14:32 | Outpatient (CLI) | payer MEDICARE, BC, SELFPAY ==
--- NOTE | 2021-09-06 14:35 | CT_ITS ---
STUDY: CT ABDOMEN AND PELVIS WITH AND WITHOUT CONTRAST REASON FOR EXAM: Male, 76 years old. GROSS HEMATURIA RADIATION DOSAGE (If Supplied By Facility): CTDIvol = ( 28.62 ) mGy, DLP = ( 5442.87 ) mGycm TECHNIQUE: Transaxial images were obtained from the dome of the diaphragm to the symphysis pubis without oral contrast. IV 100mL Isovue-300 was administered. Sagittal and coronal images were reconstructed. Individualized dose optimization techniques were used for this CT. COMPARISON: None. FINDINGS: The visualized lung bases are unremarkable. The visualized portions of the heart are within normal limits. There is decreased attenuation of the liver consistent with steatosis. Normal gallbladder and extrahepatic biliary system. Normal spleen. Normal pancreas. Normal bilateral adrenal glands. 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 There is a 6.4 mm calcification in the lateral aspect of the cortex of the left kidney superiorly. There is a 1.6 cm cyst in the upper pole of the left kidney. Calcific plaques of the intrarenal branches of the renal arteries bilaterally. Fluid distention of the stomach. Normal small intestine. There are multiple colonic diverticula consistent with diverticulosis. The appendix is visualized and appears normal. There is diffuse atherosclerotic calcification of the abdominal aorta and its major visceral branches,. Infrarenal abdominal aorta has a transverse dimension of 2.9 cm.. Normal inferior vena cava. Normal retroperitoneum. There is a 2.2 cm x 2.2 cm polypoid mass in the base of the bladder on the left side. Correlation with cystoscopy is recommended. Small bilateral inguinal hernias containing fat. Small bilateral lymph nodes are seen in the groins. There are mild degenerative changes of the visualized lumbar spine. CT/CT Abd/Pelvis W/WO Contrast IMPRESSION: 2.2 cm x 2.2 cm polypoid mass at the base of the bladder on the left side. Fatty infiltration of the liver. Sigmoid diverticulosis. Electronically Signed: Martin Terrazas MD at 15:44 EST ,
[2021-09-06 14:51] LABS: CREATININE FINGERSTICK 1.3 mg/dL (0.70-1.30)
== END 2021-09-06 23:59 | disposition home or self-care (01) ==
LOC: CT 14:33
PROVIDERS: PCP Family Medicine; Referring Provider Urology; Visit Provider Urology
DX: R31.0 Gross hematuria (principal)
CPT/HCPCS: 74178; Q9967

== ENCOUNTER 2021-09-27 12:16 | Day surgery (SDC) | payer MEDICARE, BC, SELFPAY ==
[2021-09-25 15:21] LABS: Hematocrit 33.7 % (40-54); Hemoglobin 10.8 g/dL (13.0-16.5); Mean Corpuscular Hgb 30.9 pg (27.0-32.0); Mean Corpuscular Volume 96.3 fL (80-94); Mean Platelet Vol. 10.8 fl (6.2-12.0); Platelet Count 211 K/mm3 (150-450); RBC Distribution Width CV 13.9 % (11.6-14.6); RBC Distribution Width SD 49.6 fl (35.1-43.9); White Blood Count 6.8 K/mm3 (4.4-11.0)
[2021-09-25 16:15] LABS: Anion Gap 7 (5-15); BUN 36 mg/dL (7-18); BUN/Creat Ratio 21.2 RATIO (10-20); Calcium,Total 9.2 mg/dL (8.5-10.1); Chloride 106 mmol/L (98-107); EST Glomerular Filtration Rate 42 mL/min (>60); Est Glom Filt Rate - Afr Amer 51 mL/min (>60); Glucose 81 mg/dL (74-106); Potassium 4.1 mmol/L (3.5-5.1); Sodium Level 138 mmol/L (136-145)
[2021-09-27 12:51] VITALS: BP 118/60; PULSE 75; RESP 18; TEMP 36.1; O2SAT 99; BMI 28.5
[2021-09-27] MEDS: Lactated Ringers 1,000 ML 15 ML IV (13:05)
[2021-09-27] MEDS: Cefazolin 2 GM in 0.9% Normal Saline 100 ML IV (15:47)
--- NOTE | 2021-09-27 16:43 | HP.PCM_ITS ---
HPI - General HPI Narrative DAVID CASTANON, is a 76 M who presents for resection of a large bladder tumor [facility] Medical History (Updated 09/27/21 @ 16:[address] Chris Verdugo MD) Back pain Bladder disease Depression Former smoker Gastric reflux High cholesterol History of edema History of hiatal hernia History of pain when walking Hypertension Pressure ulcer Thyroid disease Tinnitus Wears dentures Wears glasses Home Medications L.acidophilus-B.animalis-B.longum 15 billion cell capsule 1 cap PO DAILY 02/13/21 [History Last Taken Unknown] aspirin 81 mg tablet,delayed release 81 mg PO DAILY 02/13/21 [History Last Taken Unknown] coenzyme Q10 75 mg capsule 75 mg PO DAILY 02/13/21 [History Last Taken Unknown] latanoprost 0.005 % eye drops 1 drp OPHTHALMIC (EYE) DAILY ml 02/13/21 [History Last Taken Unknown] lisinopril 10 mg tablet 10 mg PO QHS 02/13/21 [History Last Taken Unknown] yrznngjrlvsk-poaqcobx-uhtqeu tablet 1 tab PO DAILY 02/13/21 [History Last Taken Unknown] omega-3 fatty acids 1,000 mg capsule 1,000 mg PO DAILY 02/13/21 [History Last Taken Unknown] pantoprazole 40 mg tablet,delayed release 40 mg PO 1200 02/13/21 [History Last Taken 09/27/21] simvastatin 40 mg tablet 40 mg PO QHS 02/13/21 [History Last Taken Unknown] levothyroxine 88 mcg PO DAILY 05/10/21 [History Last Taken 09/27/21] collagenase clostridium histo. 250 unit/gram topical ointment 1 gm TOPICAL DAILY 07/17/21 [History Last Taken Unknown] clopidogrel 75 mg tablet 75 mg PO DAILY 08/23/21 [History Last Taken Unknown] gabapentin 600 mg tablet 600 mg PO TID 08/23/21 [History Last Taken 09/27/21] oxycodone-acetaminophen 5 mg-325 mg tablet 1 tab PO PRN PRN 08/23/21 [History Last Taken Unknown] rivaroxaban 2.5 mg tablet 2.5 mg PO DAILY tab 08/23/21 [History Last Taken 09/24/21] brimonidine-dorzolamide (PF) 1 drp OPHTHALMIC (EYE) DAILY 09/22/21 [History Last Taken Unknown] ciprofloxacin HCl [Cipro] 500 mg PO BID #10 tab 09/27/21 [Rx Last Taken Unknown] oxycodone-acetaminophen 1 tab PO Q6H PRN 7 Days #14 tab 09/27/21 [Rx Last Taken Unknown] Allergy/AdvReac Type Severity Reaction Status Date / Time Iodinated Contrast Media Allergy Hives Verified 09/27/21 12:47 Family History Mother Cancer Surgical History (Updated 09/22/21 @ 11:26 by Terri Frost) H/O arterial bypass of lower limb History of angioplasty of peripheral vessel Hx of decompressive lumbar laminectomy Social History household members: spouse housing: house Smoking Status: Former smoker alcohol intake: never what type of physical activity do you participate in: none do you feel safe at home: Yes Vital Signs Vital Signs Vital Signs: 09/27/21 12:51 Temperature 97.0 F L Temperature Source Temporal Pulse Rate 75 Respiratory Rate 18 Blood Pressure 118/60 Blood Pressure Mean 79 Blood Pressure Source Monitor Blood Pressure Position Semi-Fowlers Blood Pressure Location Left Arm Pulse Ox 99 Oxygen Delivery Method Room Air Weight Weight: 95.5 kg Body Mass Index (BMI) 28.5 Results Lab / Micro Data Result Diagrams: 09/25/21 14:54 09/25/21 14:54
--- NOTE | 2021-09-27 16:43 | PCM.DC ---
Discharge Instructions Diet Discharge Diet: No restrictions Activity Discharge Activity: Return to Normal Activity and May Not Drive (while taking narcotic pain medications.) Dressing / Incision Call your doctor if you observe: Fever of 101 or Higher Follow Up Care Please Follow Up With: Chris Verdugo MD When: Call [phone] for an appointment Test Results: Test results from this visit will be discussed in further detail at your follow-up appointment, if applicable. Discharge Plan Admission Primary Reason for Your Visit: resection of bladder tumor Attending Provider: Chris Verdugo Primary Care Provider: Sreedhar Gilman Discharge Orders/Prescriptions Prescriptions: New ciprofloxacin HCl [Cipro] 500 mg tablet 500 mg PO BID Qty: 10 RF: 0 oxycodone-acetaminophen 5-325 mg tablet 1 tab PO Q6H PRN (Reason: pain) 7 Days Qty: 14 RF: 0 Continued pantoprazole [Protonix] 40 mg tablet,delayed release (DR/EC) 40 mg PO 1200 RF: 0 simvastatin 40 mg tablet 40 mg PO QHS RF: 0 lisinopril 10 mg tablet 10 mg PO QHS RF: 0 latanoprost 0.005 % drops 1 drp ophthalmic (eye) DAILY RF: 0 aspirin [Adult Aspirin Regimen] 81 mg tablet,delayed release (DR/EC) 81 mg PO DAILY RF: 0 opsyakwmiewi-emmqcnrw-mcvydp Tablet 1 tab PO DAILY RF: 0 omega-3 fatty acids [Fish Oil Concentrate] 1,000 mg capsule 1,000 mg PO DAILY RF: 0 Ultra CoQ10 75 mg capsule 75 mg PO DAILY RF: 0 Florajen Digestion 15 billion cell capsule 1 cap PO DAILY RF: 0 collagenase clostridium histo. 250 unit/gram ointment 1 gm topical DAILY RF: 0 gabapentin 600 mg tablet 600 mg PO TID RF: 0 rivaroxaban 2.5 mg tablet 2.5 mg PO DAILY RF: 0 oxycodone-acetaminophen 5-325 mg tablet 1 tab PO PRN PRN (Reason: Pain) RF: 0 clopidogrel [Plavix] 75 mg tablet 75 mg PO DAILY RF: 0 levothyroxine 88 mcg tablet 88 mcg PO DAILY RF: 0 brimonidine-dorzolamide (PF) 0.15-2 % Drops 1 drp ophthalmic (eye) DAILY RF: 0 Referrals / Follow Up: Chris Verdugo MD [STAFF PHYSICIAN] - Sreedhar Gilman MD [Primary Care Provider] - Disposition Disposition (needs filled in before D/C Order can be placed): Home, Self Care
--- NOTE | 2021-09-27 16:44 | OP.PCM_ITS ---
Report of Operation Date of Procedure: 09/27/21 Pre-Operative Diagnosis: Large bladder tumor Post-Operative Diagnosis: The same Surgery/Procedure Performed:: Transurethral resection of a large bladder tumor from the left lateral wall the bladder and left trigone area and left ureteral catheterization. Description of Surgical Findings:: Patient presented to the hospital for treatment of a tumor that was found in the bladder with a very large bladder tumor. Patient understands is possible it may not be able to resect the entire tumor. Patient also understands is possible that the patient may need multiple procedures or more invasive procedures to cure him of this cancer. Patient was taken back to the operating room after smooth induction of anesthesia the patient was placed supine on the table. The patient was placed in dorsolithotomy position. The urethra and genitals prepped and draped in usual sterile fashion. I went into the bladder with a 30 degree lens and a cystoscope and identified the tumor the tumor was about 6 centimeters in size and occupying mostly the left lateral wall and left trigone of the bladder. The right and left ureteral orifice were identified. The tumor was involved in the left ureteral orifice. I then placed the resectoscope and the bladder and resected the entire tumor down to the muscle. And then cauterized the resection base to obtained hemostasis. Using a 21 Bulgarian rigid cystourethroscope the entire length of the urethra was normal then went into the bladder. Identified the trigone the left and right ureteral orifice. I then cannulated the left orifice and advanced a wire up into the kidney. I then backloaded a 5 Bulgarian open ended catheter over the wire and injected contrast to delineate the anatomy. After the retrograde was performed I then used fluoroscopic images and guidance to advanced a wire up into the kidney and over the 0.038 glidewire I advance a poliick catheter. I then pulled the 0.038 Glidewire off and removed the catheter. The bladder was then drained. Then 40cc of mitomycin C was placed in the bladder for a post resection dose of chemotherpay. We then placed the catheter in the bladder and the patient was taken back to the PACU in stable condition. Surgeon: spring Type of Anesthesia: General Drains: none Admit VTE Documentation VTE Present on Admission: No VTE Mechan Device Prophylaxis: SCD's VTE Pharm Prophylaxis ordered?: No
[2021-09-27 16:51] VITALS: BP 118/60; BP 154/84; PULSE 82; RESP 16; TEMP 36.3; O2SAT 97
[2021-09-27 17:00] VITALS: BP 118/60; BP 149/76; PULSE 63; RESP 16; O2SAT 96
[2021-09-27 17:15] VITALS: BP 118/60; BP 142/74; PULSE 62; RESP 16; O2SAT 97
[2021-09-27 17:22] VITALS: BP 118/60; BP 142/74; PULSE 63; RESP 16; TEMP 36.3; O2SAT 94
[2021-09-27 18:34] VITALS: BP 118/60; BP 136/70; PULSE 64; RESP 16; TEMP 35.8; O2SAT 98
--- NOTE | 2021-09-28 | BLB_PTH ---
PATIENT: DAVID CASTANON LOC: [facility] U#:[id number] AGE/SX: 76/M ROOM: RE09/27/[address]: Dr. Chris Verdugo MD : 1945 BED: DIS: 09/27/2021 SPEC #: [id number] RECD: 09/28/21 12:51 STATUS: ZAKIA RIVAS #: [id number] JUAN RAMON: 09/28/21 00:[address]: Chris Verdugo DEPT: SURGICAL PATHOLOGY RECD BY: Mark Koo ENTERED: 09/28/21 12:52 SP TYPE: TURB OTHR DR: Dr. Sreedhar Gilman MD Tissues: Urinary bladder, NOS Procedures: Surgery Specimen Level V HEADER OPERATION: Transurethral resection bladder tumor with Olymp[employer] PRE-OP DIAGNOSIS: Neoplasm of bladder, gross hematuria TISSUE SUBMITTED: Bladder tissue MICROSCOPIC DIAGNOSIS Bladder tissue, transurethral resection: Papillary urothelial carcinoma. See synoptic report below. AM:rg 09/29/2021 COMMENT BLADDER CANCER (TUR) SUMMARY Procedure: Transurethral resection of bladder (TURBT) Tumor site: Not specified Histologic type: Papillary urothelial carcinoma Histologic grade: Grade 1-2 (WHO low grade) Tumor configuration: Papillary Muscularis propria presence: Not present Lymphvascular invasion: Not identified Tumor extension: Confined to urothelium. Additional pathologic findings: None The above summary is in compliance with [employer] [place] Pathology (CAP) Cancer Protocols Checklist and [place] Joint Committee on Cancer (AJCC), Staging Manual, 8th Ed. MICROSCOPIC DESCRIPTION Slides are reviewed. GROSS DESCRIPTION Received in fixative is one container labeled with the patient's name and designated bladder tissue. The specimen consists of multiple irregular and somewhat friable fragments of light staples soft tissue that in aggregate measure 2.2 x 2 x 0.2 cm. The specimen is totally submitted in one cassette. / AM:anjel 09/28/2021 TC:0 CPT: 72314
== END 2021-09-27 23:59 | disposition home or self-care (01) ==
LOC: SDC 12:16 → AC 12:17
PROVIDERS: Anesthesiology; PCP Family Medicine; Referring Provider Urology; Visit Provider Urology
PROC: 0TBB8ZX Excision of Bladder, Via Natural or Artificial Opening Endoscopic, Diagnostic (ICD-10-PCS; CPT 52250; principal; 2021-09-27 14:25)
DX: C67.9 Malignant neoplasm of bladder, unspecified (principal); I10 Essential (primary) hypertension; E78.00 Pure hypercholesterolemia, unspecified; F32.A Depression, unspecified; K21.9 Gastro-esophageal reflux disease without esophagitis; E07.9 Disorder of thyroid, unspecified; Z79.02 Long term (current) use of antithrombotics/antiplatelets; Z87.891 Personal history of nicotine dependence; Z79.82 Long term (current) use of aspirin; Z79.899 Other long term (current) drug therapy
CPT/HCPCS: 52240; 00912; 51720; 36415; 80048; 84443; 85027; 87426; 88307; C9803; J7120; C1758; C1769; J2405; J3490; J9280

== ENCOUNTER 2021-09-30 12:29 | Inpatient (IN) | payer MEDICARE, BC, SELFPAY ==
[2021-09-30] VITALS (11 sets, daily range): BP systolic 103–145; BP diastolic 39–73; PULSE 59–96; RESP 10–18; TEMP 35.9–36.6; O2SAT 95–98; BMI 30.2; BMI 29.9; BMI 30.3
--- NOTE | 2021-09-30 12:39 | EDS_ITS ---
HPI History of Present Illness Chief Complaint: Complaint Informant: patient and spouse/S.O. Narrative Narrative: Patient presents stating he thinks he needs a catheter. He has had these before. On Saturday just a few days ago he had a tumor removed from his bladder through cystoscopy by Dr. Verdugo. He then had a chemotherapy rinse afterwards. It is thought that everything was gotten at the procedure. He has had some bleeding since with a few small clots but nothing significant. Patient is on Xarelto and Plavix. This was held Saturday and Saturday. He restarted these . He states he has been having a feeling like his bladder is full and distended. He leaks frequently but can never fully empty. If he lays down flat he gets a little better emptying. He has had some blood. He states he has pain when he pees but it is actually pressure in the bladder but not really urethral dysuria. No back or flank pain. No fevers or chills. He is on Cipro also. Nothing specifically makes symptoms better or worse. He does feel little bit better after he urinates a bit though. But he never feels like he empties now. He called his surgeon who recommended he come in for a catheter. [facility] Medical History (Updated 09/30/21 @ 15:[address] Saurabh Arriola MD) Back pain Bladder disease Former smoker Gastric reflux High cholesterol History of edema History of hiatal hernia History of pain when walking Hypertension Pressure ulcer Thyroid disease Tinnitus Wears dentures Wears glasses Home Medications L.acidophilus-B.animalis-B.longum 15 billion cell capsule 1 cap PO DAILY 02/13/21 [History Last Taken Unknown] aspirin 81 mg tablet,delayed release 81 mg PO DAILY 02/13/21 [History Last Taken Unknown] coenzyme Q10 75 mg capsule 75 mg PO DAILY 02/13/21 [History Last Taken Unknown] latanoprost 0.005 % eye drops 1 drp OPHTHALMIC (EYE) DAILY ml 02/13/21 [History Last Taken Unknown] lisinopril 10 mg tablet 10 mg PO QHS 02/13/21 [History Last Taken Unknown] jtezchudziix-gocfyezn-mlpjzu tablet 1 tab PO DAILY 02/13/21 [History Last Taken Unknown] omega-3 fatty acids 1,000 mg capsule 1,000 mg PO DAILY 02/13/21 [History Last Taken Unknown] pantoprazole 40 mg tablet,delayed release 40 mg PO 1200 02/13/21 [History Last Taken 09/27/21] simvastatin 40 mg tablet 40 mg PO QHS 02/13/21 [History Last Taken Unknown] levothyroxine 88 mcg PO DAILY 05/10/21 [History Last Taken 09/27/21] collagenase clostridium histo. 250 unit/gram topical ointment 1 gm TOPICAL DAILY 07/17/21 [History Last Taken Unknown] clopidogrel 75 mg tablet 75 mg PO DAILY 08/23/21 [History Last Taken Unknown] gabapentin 600 mg tablet 600 mg PO TID 08/23/21 [History Last Taken 09/27/21] oxycodone-acetaminophen 5 mg-325 mg tablet 1 tab PO PRN PRN 08/23/21 [History Last Taken Unknown] rivaroxaban 2.5 mg tablet 2.5 mg PO DAILY tab 08/23/21 [History Last Taken 09/24/21] brimonidine-dorzolamide (PF) 1 drp OPHTHALMIC (EYE) DAILY 09/22/21 [History Last Taken Unknown] ciprofloxacin HCl [Cipro] 500 mg PO BID #10 tab 09/27/21 [Rx Last Taken Unknown] oxycodone-acetaminophen 1 tab PO Q6H PRN 7 Days #14 tab 09/27/21 [Rx Last Taken Unknown] Allergy/AdvReac Type Severity Reaction Status Date / Time Iodinated Contrast Media Allergy Hives Verified 09/30/21 12:30 Family History Mother Cancer Surgical History H/O arterial bypass of lower limb History of angioplasty of peripheral vessel Hx of decompressive lumbar laminectomy Social History household members: spouse housing: house Smoking Status: Former smoker alcohol intake: never what type of physical activity do you participate in: none do you feel safe at home: Yes ROS ROS ED Constitutional Constitutional ED: Denies chills, fever(s) or subjective ENT ENT ED: Denies sore throat Cardiovascular Cardiovascular: Denies chest pain or palpitations Respiratory/Chest Respiratory/Chest: Denies cough or dyspnea Gastrointestinal Gastrointestinal: Reports abdominal pain and other Details: Suprapubic discomfort. ; Denies constipation, diarrhea, melena, nausea or vomiting Genitourinary Genitourinary ED: Reports dysuria, hematuria, urinary frequency and other Details: See history of present illness. Musculoskeletal Musculoskeletal: Denies back pain Integumentary Denies rash Neurologic Neurologic: Denies paresthesias or weakness Endocrine Endocrinology: Denies polydipsia or polyuria Allergic/Immunologic Allergic/Immunologic ED: Denies urticaria EXAM Physical Exam Const Vital Signs: 09/30/21 12:30 09/30/21 14:29 Temperature 96.7 F L Temperature Source Temporal Pulse Rate 96 59 L Respiratory Rate 17 10 L Blood Pressure 145/57 H 141/73 H Blood Pressure Mean 86 95 Pulse Ox 97 95 Oxygen Delivery Method Room Air Room Air Positive well nourished and well developed Constitutional Narrative: Patient does look a bit uncomfortable. General Appearance ED: well developed; Negative for cyanotic or diaphoretic HEENT Reports moist mucous membranes Eyes General Eye ED: Negative for pale conjunctiva or scleral icterus Neck no JVD Chest Wall inspection of chest normal Resp normal respiratory effort GI normal to inspection, nondistended, normoactive bowel sounds GI Narrative: Patient does have fullness over the lower abdomen. Very mild tenderness but more sense of pressure. Back/Spine no CVA tenderness Neuro oriented x3 Sensorium / Orientation: alert Psych mental status grossly normal Skin no rashes or lesions noted and no wounds MDM MDM MDM Narrative Medical decision making narrative: Patient's blood work shows normal white count. His hemoglobin has dropped somewhat from his recent check. Is now 9.0. Electrolytes do show some mildly so low sodium. His creatinine and BUN are up. He is gone from creatinine 1 7-2.4. Urine shows multiple red cells but no white cells. Patient's irrigated here. He still getting clots and some blood out. We then did continuous irrigation. However he still keeps locking up with continuous irrigation. We have to stop and do manual. There is probably been a total of about 2200 cc irrigated through. He has a 24 [place] Titus and that should irrigate and drain well. My concern is that this patient is on Plavix and Xarelto. He still has some bleeding although not gross red blood. He still has clotting that is causing intermittent obstruction in a 24 Kenyan catheter. I discussed case with his surgeon, Dr. Verdugo. He will come in and may take the patient to the OR to truly irrigate him out or see if there is a source of bleeding or other difficulty. Lab Data Attestation: I reviewed the patient's lab results. Labs: Laboratory Results - last 24 hr 09/30/21 09/30/21 09/30/21 12:45 12:45 13:00 WBC 10.3 RBC 2.77 L Hgb 9.0 L Hct 26.4 L MCV 95.3 H MCH 32.5 H MCHC 34.1 D RDW Std Deviation 47.6 H RDW Coeff of Jesse 13.7 Plt Count 200 MPV 10.8 Immature Gran % (Auto) 0.500 Neut % (Auto) 74.1 H Lymph % (Auto) 12.0 L [place] % (Auto) 9.1 Eos % (Auto) 4.0 Baso % (Auto) 0.3 Absolute Neuts (auto) 7.7 Absolute Lymphs (auto) 1.24 Nucleated RBC % 0 Sodium 126 L Potassium 4.9 Chloride 97 L Carbon Dioxide 26.0 Anion Gap 3 L BUN 59 H Creatinine 2.48 H Estim Creat Clear Calc 28.25 Est GFR (MDRD) Af Amer 33 L Est GFR (MDRD) Non-Af 27 L BUN/Creatinine Ratio 23.8 H Glucose 118 H Calcium 8.8 Urine Color Brown Urine Clarity Cloudy Urine pH 6.5 Ur Specific [place] 1.015 Urine Protein 100 H Urine Glucose (UA) Normal Urine Ketones 5 H Urine Occult Blood 250 H Urine Nitrite Negative Urine Bilirubin Negative Urine Urobilinogen Normal Ur Leukocyte Esterase 25 H Urine RBC > 100 SEEN Urine WBC 0-5 SEEN Ur Squamous Epith Cells 0-5 SEEN Urine Bacteria 2+ Urine Mucus 0 SEEN Discharge Plan Triage Chief Complaint: Complaint ED Provider: Saurabh Arriola Dx/Rx/DC Orders Clinical Impression: Acute urinary retention, Hematuria, Encounter for ureteral catheter placement, Coagulopathy, Acute kidney injury Instructions: ED Titus Catheter, Care, ED Urinary Retention, Male Prescriptions: No Action pantoprazole [Protonix] 40 mg tablet,delayed release (DR/EC) 40 mg PO 1200 RF: 0 simvastatin 40 mg tablet 40 mg PO QHS RF: 0 lisinopril 10 mg tablet 10 mg PO QHS RF: 0 latanoprost 0.005 % drops 1 drp ophthalmic (eye) DAILY RF: 0 aspirin [Adult Aspirin Regimen] 81 mg tablet,delayed release (DR/EC) 81 mg PO DAILY RF: 0 kphuproihsrx-nvqabpgn-jcbwpe Tablet 1 tab PO DAILY RF: 0 omega-3 fatty acids [Fish Oil Concentrate] 1,000 mg capsule 1,000 mg PO DAILY RF: 0 Ultra CoQ10 75 mg capsule 75 mg PO DAILY RF: 0 Florajen Digestion 15 billion cell capsule 1 cap PO DAILY RF: 0 collagenase clostridium histo. 250 unit/gram ointment 1 gm topical DAILY RF: 0 gabapentin 600 mg tablet 600 mg PO TID RF: 0 rivaroxaban 2.5 mg tablet 2.5 mg PO DAILY RF: 0 oxycodone-acetaminophen 5-325 mg tablet 1 tab PO PRN PRN (Reason: Pain) RF: 0 clopidogrel [Plavix] 75 mg tablet 75 mg PO DAILY RF: 0 levothyroxine 88 mcg tablet 88 mcg PO DAILY RF: 0 brimonidine-dorzolamide (PF) 0.15-2 % Drops 1 drp ophthalmic (eye) DAILY RF: 0 ciprofloxacin HCl [Cipro] 500 mg tablet 500 mg PO BID Qty: 10 RF: 0 oxycodone-acetaminophen 5-325 mg tablet 1 tab PO Q6H PRN (Reason: pain) 7 Days Qty: 14 RF: 0 Primary Care Provider: Sreedhar Gilman Referrals: Chris Verdugo MD [STAFF PHYSICIAN] - Keep Alfonso appointment Sreedhar Gliman MD [Primary Care Provider] -
[2021-09-30 12:56] LABS: Absolute Lymphocyte Count 1.24 X10^3/uL (0.83-4.51); Absolute Neutrophil Count 7.7 X10^3/uL (2.0-7.7); Basophil# 0.03 X10^3/uL; Basophil% 0.3 % (0-1); Eosinophil# 0.41 X10^3/uL; Hematocrit 26.4 % (40-54); Lymphocyte # 1.24 X10^3/ul (0.83-4.51); Mean Corp Hgb Conc 34.1 g/dL (32-36); Mean Corpuscular Hgb 32.5 pg (27.0-32.0); Mean Corpuscular Volume 95.3 fL (80-94); Mean Platelet Vol. 10.8 fl (6.2-12.0); Monocyte# 0.94 X10^3/uL; Monocyte% 9.1 % (0-10); NRBC Flagged by Analyzer 0 % (0-5); Neutrophil # 7.66 X10^3/uL (2.7-7.7); Neutrophil % 74.1 % (47-70); Platelet Count 200 K/mm3 (150-450); RBC Distribution Width CV 13.7 % (11.6-14.6); RBC Distribution Width SD 47.6 fl (35.1-43.9); Red Blood Count 2.77 M/mm3 (4.6-6.2); White Blood Count 10.3 K/mm3 (4.4-11.0)
[2021-09-30 13:09] LABS: Anion Gap 3 (5-15); BUN 59 mg/dL (7-18); BUN/Creat Ratio 23.8 RATIO (10-20); Calcium,Total 8.8 mg/dL (8.5-10.1); Chloride 97 mmol/L (98-107); Creatinine, Serum 2.48 mg/dL (0.70-1.30); EST Glomerular Filtration Rate 27 mL/min (>60); Est Glom Filt Rate - Afr Amer 33 mL/min (>60); Estimated Creatinine Clearance 28.25 ml/min; Glucose 118 mg/dL (74-106); Potassium 4.9 mmol/L (3.5-5.1); Sodium Level 126 mmol/L (136-145)
[2021-09-30 13:27] LABS: Mucous, Urine 0 SEEN /hpf (<or=2+)
[2021-09-30 13:28] LABS: Color, Urine Brown (Yellow); Glucose, Dipstick Normal (Normal); Ketone-Dipstick 5 mg/dl (Negative); Leukocyte Esterase-Dipstick 25 /ul (Negative); Nitrite-Dipstick Negative (Negative); Occult Blood-Urine 250 /ul (Negative); Protein-Dipstick 100 mg/dl (Negative); Specific Gravity, Urine 1.015 (1.002-1.030); Urine Bilirubin Dipstick Negative (Negative); Urine Clarity Cloudy (Clear); Urine Urobilinogen Normal (Normal); Urine pH 6.5 (5.0 - 8.0)
[2021-09-30] MEDS: 0.9% Normal Saline 1,000 ML 999 ML IV (13:30)
[2021-09-30 13:37] LABS: Red Blood Cells-Urine > 100 SEEN /hpf (0-5)
[2021-09-30 13:39] LABS: Bacteria 2+ /hpf (None Seen); Squamous Epithelial Cells - UA 0-5 SEEN /hpf (0-5); White Blood Cells 0-5 SEEN /hpf (0-5)
[2021-09-30] MEDS: oxyCODONE 5 MG Tablet PO ×2 (14:53→23:23)
--- NOTE | 2021-09-30 16:10 | ED.RN ---
During continuous irrigation, several clots would slow the irrigation requiring manual flushing of catheter. Dr. Arriola aware of difficulty and aware of I&Os
[2021-09-30] MEDS: Lactated Ringers 1,000 ML 15 ML IV (17:00)
--- NOTE | 2021-09-30 17:49 | PCM.HP.STD ---
HPI - General HPI Narrative DAVID CASTANON, is a 76 M who presents to the hospital with bleeding he had resection of a very large bladder mass a few days ago so when taken to surgery to evacuate blood clots and cauterize the bleeder from the bladder. [facility] Medical History (Updated 09/30/21 @ 15:[address] Saurabh Arriola MD) Back pain Bladder disease Former smoker Gastric reflux High cholesterol History of edema History of hiatal hernia History of pain when walking Hypertension Pressure ulcer Thyroid disease Tinnitus Wears dentures Wears glasses Home Medications L.acidophilus-B.animalis-B.longum 15 billion cell capsule 1 cap PO DAILY 02/13/21 [History Last Taken Unknown] aspirin 81 mg tablet,delayed release 81 mg PO DAILY 02/13/21 [History Last Taken Unknown] coenzyme Q10 75 mg capsule 75 mg PO DAILY 02/13/21 [History Last Taken Unknown] latanoprost 0.005 % eye drops 1 drp OPHTHALMIC (EYE) DAILY ml 02/13/21 [History Last Taken Unknown] lisinopril 10 mg tablet 10 mg PO QHS 02/13/21 [History Last Taken Unknown] mfyhxvjbqejz-gyhpvhas-isjbij tablet 1 tab PO DAILY 02/13/21 [History Last Taken Unknown] omega-3 fatty acids 1,000 mg capsule 1,000 mg PO DAILY 02/13/21 [History Last Taken Unknown] pantoprazole 40 mg tablet,delayed release 40 mg PO 1200 02/13/21 [History Last Taken 09/27/21] simvastatin 40 mg tablet 40 mg PO QHS 02/13/21 [History Last Taken Unknown] levothyroxine 88 mcg PO DAILY 05/10/21 [History Last Taken 09/27/21] collagenase clostridium histo. 250 unit/gram topical ointment 1 gm TOPICAL DAILY 07/17/21 [History Last Taken Unknown] clopidogrel 75 mg tablet 75 mg PO DAILY 08/23/21 [History Last Taken Unknown] gabapentin 600 mg tablet 600 mg PO TID 08/23/21 [History Last Taken 09/27/21] oxycodone-acetaminophen 5 mg-325 mg tablet 1 tab PO PRN PRN 08/23/21 [History Last Taken Unknown] rivaroxaban 2.5 mg tablet 2.5 mg PO DAILY tab 08/23/21 [History Last Taken 09/24/21] brimonidine-dorzolamide (PF) 1 drp OPHTHALMIC (EYE) DAILY 09/22/21 [History Last Taken Unknown] ciprofloxacin HCl [Cipro] 500 mg PO BID #10 tab 09/27/21 [Rx Last Taken Unknown] oxycodone-acetaminophen 1 tab PO Q6H PRN 7 Days #14 tab 09/27/21 [Rx Last Taken Unknown] Allergy/AdvReac Type Severity Reaction Status Date / Time Iodinated Contrast Media Allergy Hives Verified 09/30/21 12:30 Family History Mother Cancer Surgical History H/O arterial bypass of lower limb History of angioplasty of peripheral vessel Hx of decompressive lumbar laminectomy Social History household members: spouse housing: house Smoking Status: Former smoker alcohol intake: never what type of physical activity do you participate in: none do you feel safe at home: Yes Vital Signs Vital Signs Vital Signs: 09/30/21 12:30 09/30/21 14:29 09/30/21 16:00 Temperature 96.7 F L Temperature Source Temporal Pulse Rate 96 59 L 60 Respiratory Rate 17 10 L 14 Blood Pressure 145/57 H 141/73 H 116/67 Blood Pressure Mean 86 95 83 Pulse Ox 97 95 97 Oxygen Delivery Method Room Air Room Air Room Air 09/30/21 17:14 Temperature 97.8 F Temperature Source Temporal Pulse Rate 76 Respiratory Rate 14 Blood Pressure 120/49 L Blood Pressure Mean 72 Pulse Ox 95 Oxygen Delivery Method Room Air Weight Weight: 101.2 kg Body Mass Index (BMI) 30.2 Results Lab / Micro Data Result Diagrams: 09/30/21 12:45 09/30/21 12:45 Labs: Laboratory Results - last 24 hr 09/30/21 12:45: WBC 10.3, RBC 2.77 L, Hgb 9.0 L, Hct 26.4 L, MCV 95.3 H, MCH 32.5 H, MCHC 34.1 D, RDW Std Deviation 47.6 H, RDW Coeff of Jesse 13.7, Plt Count 200, MPV 10.8, Immature Gran % (Auto) 0.500, Neut % (Auto) 74.1 H, Lymph % (Auto) 12.0 L, [place] % (Auto) 9.1, Eos % (Auto) 4.0, Baso % (Auto) 0.3, Absolute Neuts (auto) 7.7, Absolute Lymphs (auto) 1.24, Nucleated RBC % 0 09/30/21 12:45: Sodium 126 L, Potassium 4.9, Chloride 97 L, Carbon Dioxide 26.0, Anion Gap 3 L, BUN 59 H, Creatinine 2.48 H, Estim Creat Clear Calc 28.25, Est GFR (MDRD) Af Amer 33 L, Est GFR (MDRD) Non-Af 27 L, BUN/Creatinine Ratio 23.8 H, Glucose 118 H, Calcium 8.8 09/30/21 13:00: Urine Color Brown, Urine Clarity Cloudy, Urine pH 6.5, Ur Specific [place] 1.015, Urine Protein 100 H, Urine Glucose (UA) Normal, Urine Ketones 5 H, Urine Occult Blood 250 H, Urine Nitrite Negative, Urine Bilirubin Negative, Urine Urobilinogen Normal, Ur Leukocyte Esterase 25 H, Urine RBC > 100 SEEN, Urine WBC 0-5 SEEN, Ur Squamous Epith Cells 0-5 SEEN, Urine Bacteria 2+, Urine Mucus 0 SEEN 09/30/21 16:00: Blood Type A POSITIVE, Antibody Screen NEGATIVE
--- NOTE | 2021-09-30 17:50 | PCM.DC ---
Discharge Instructions Diet Discharge Diet: No restrictions Activity Discharge Activity: Return to Normal Activity and May Not Drive (while taking narcotic pain medications.) Dressing / Incision Call your doctor if you observe: Fever of 101 or Higher Follow Up Care Please Follow Up With: Chris Verdugo MD When: Call [phone] for an appointment Test Results: Test results from this visit will be discussed in further detail at your follow-up appointment, if applicable. Discharge Plan Admission Attending Provider: Chris Verdugo Primary Care Provider: Sreedhar Gilman Instructions Patient Instructions: ED Titus Catheter, Care, ED Urinary Retention, Male Discharge Orders/Prescriptions Prescriptions: No Action pantoprazole [Protonix] 40 mg tablet,delayed release (DR/EC) 40 mg PO 1200 RF: 0 simvastatin 40 mg tablet 40 mg PO QHS RF: 0 lisinopril 10 mg tablet 10 mg PO QHS RF: 0 latanoprost 0.005 % drops 1 drp ophthalmic (eye) DAILY RF: 0 aspirin [Adult Aspirin Regimen] 81 mg tablet,delayed release (DR/EC) 81 mg PO DAILY RF: 0 ddwnzyijevnl-ejirhoze-gucxri Tablet 1 tab PO DAILY RF: 0 omega-3 fatty acids [Fish Oil Concentrate] 1,000 mg capsule 1,000 mg PO DAILY RF: 0 Ultra CoQ10 75 mg capsule 75 mg PO DAILY RF: 0 Florajen Digestion 15 billion cell capsule 1 cap PO DAILY RF: 0 collagenase clostridium histo. 250 unit/gram ointment 1 gm topical DAILY RF: 0 gabapentin 600 mg tablet 600 mg PO TID RF: 0 rivaroxaban 2.5 mg tablet 2.5 mg PO DAILY RF: 0 oxycodone-acetaminophen 5-325 mg tablet 1 tab PO PRN PRN (Reason: Pain) RF: 0 clopidogrel [Plavix] 75 mg tablet 75 mg PO DAILY RF: 0 levothyroxine 88 mcg tablet 88 mcg PO DAILY RF: 0 brimonidine-dorzolamide (PF) 0.15-2 % Drops 1 drp ophthalmic (eye) DAILY RF: 0 ciprofloxacin HCl [Cipro] 500 mg tablet 500 mg PO BID Qty: 10 RF: 0 oxycodone-acetaminophen 5-325 mg tablet 1 tab PO Q6H PRN (Reason: pain) 7 Days Qty: 14 RF: 0 Referrals / Follow Up: Chris Verdugo MD [STAFF PHYSICIAN] - Keep Alfonso appointment Sreedhar Gilman MD [Primary Care Provider] -
--- NOTE | 2021-09-30 17:50 | PCM.OPRPT ---
Report of Operation Date of Procedure: 09/30/21 Pre-Operative Diagnosis: Acute bleeding from bladder status post TURBT Post-Operative Diagnosis: Same Surgery/Procedure Performed:: Cystoscopy evacuation of blood clots and cauterization of the bladder Description of Surgical Findings:: This is a 76-year-old male with multiple medical problems including peripheral vascular disease we did a resection of a very large tumor in the bladder a few days ago this went fairly well he went home the family states that he was urine was nice and clear he is been urinating well and then today started having difficulty going the bathroom passing blood clots went to the emergency room after consultation with me on the phone in the emergency room ported the significant bleeding so taken back to surgery today to stop the bleeding evacuate blood clots Patient was taken back to the operating room at his induction of general anesthesia he was placed in dorsolithotomy position. The penis and testicles were prepped and draped in usual sterile fashion went in the bladder with a 24 [place] noncontinuous flow resectoscope there is a lot of clots within the bladder I then evacuated all these blood clots manually once I got these evacuated out there was a small arterial bleeding in the base of the bladder this was cauterized extensively is very close to the left ureteral orifice so I used the resectoscope and resected and then made sure that the orifice was not involved cauterized the bleeding and then once this was stopped then I placed a 20 Green[place]ic catheter into the bladder on gravity drainage and the urine was nice and clear patient acetic was reversed and taken back to PACU in good condition. Surgeon: Chris Verdugo Type of Anesthesia: General Drains: 20 fr valdez Admit VTE Documentation VTE Present on Admission: No VTE Mechan Device Prophylaxis: SCD's VTE Pharm Prophylaxis ordered?: No
[2021-09-30] MEDS: 0.9% Normal Saline 1,000 ML 100 ML IV (18:52)
[2021-09-30] MEDS: Gabapentin 600 MG Tablet PO (21:00)
[2021-09-30] MEDS: Atorvastatin Calcium 20 MG Tablet PO (21:01)
[2021-09-30] MEDS: Lisinopril 10 MG Tablet PO (21:01)
[2021-09-30] MEDS: Ciprofloxacin 500 MG Tablet PO (21:01)
[2021-09-30] MEDS: Acetaminophen 325 MG Tablet PO (23:22)
[2021-10-01 02:44] VITALS: BMI 30.3
[2021-10-01 03:15] VITALS: BP 123/54; PULSE 86; RESP 18; TEMP 36.8; O2SAT 100
[2021-10-01] MEDS: Levothyroxine 88 MCG Tablet PO (05:22)
[2021-10-01] MEDS: Gabapentin 600 MG Tablet PO (05:22)
[2021-10-01 06:44] VITALS: BMI 30.3
[2021-10-01 07:58] VITALS: BP 110/50; PULSE 84; RESP 18; TEMP 36.5; O2SAT 99
[2021-10-01] MEDS: Acetaminophen 325 MG Tablet PO (08:07)
[2021-10-01] MEDS: oxyCODONE 5 MG Tablet PO (08:08)
[2021-10-01] MEDS: Ciprofloxacin 500 MG Tablet PO (09:57)
[2021-10-01 10:44] VITALS: BMI 30.3
--- NOTE | 2021-10-01 10:59 | PCM.PN.BLA ---
Progress Note Status post evacuation of blood clots cauterization of bleeding urine is crystal clear today we will take out the catheter he can go home after he is able to urinate he can resume all his medications and he can resume all his blood thinners tomorrow as long as urine is clear.
[2021-10-01 11:42] VITALS: BP 110/50; PULSE 84; RESP 18; TEMP 36.5; O2SAT 99
== END 2021-10-01 14:25 | disposition home or self-care (01) | DRG 909 ==
LOC: ED 16:32 → SDC 17:17 → MS3 18:01
PROVIDERS: Admitting Provider Urology; Emergency Provider Emergency Medicine; PCP Family Medicine; Visit Provider Urology
PROC: 0W3R8ZZ Control Bleeding in Genitourinary Tract, Via Natural or Artificial Opening Endoscopic (ICD-10-PCS; CPT 52214; principal; 2021-09-30 17:30)
DX: N99.820 Postprocedural hemorrhage of a genitourinary system organ or structure following a genitourinary system procedure (principal); E07.9 Disorder of thyroid, unspecified; I73.9 Peripheral vascular disease, unspecified; E78.00 Pure hypercholesterolemia, unspecified; K21.9 Gastro-esophageal reflux disease without esophagitis; I10 Essential (primary) hypertension; Y84.8 Other medical procedures as the cause of abnormal reaction of the patient, or of later complication, without mention of misadventure at the time of the procedure; Z79.01 Long term (current) use of anticoagulants; Z79.02 Long term (current) use of antithrombotics/antiplatelets; Z87.891 Personal history of nicotine dependence; Z79.899 Other long term (current) drug therapy; Z79.82 Long term (current) use of aspirin; Z95.828 Presence of other vascular implants and grafts
CPT/HCPCS: 51702; 80048; 81001; 85025; 86850; 86900; 86901; 87086; 88307; 99285; J7030; J7120; A4216; C1758; C1769; J2405; J3490; J9280

== ENCOUNTER 2021-10-03 10:44 | Outpatient (CLI) | payer MEDICARE, BC, SELFPAY ==
--- NOTE | 2021-10-03 10:48 | ADU_ITS ---
Reason For Study: stricture of artery Right Velocities Left Velocities Ext. Iliac Artery, dist = 234.8 cm./sec. Ext Iliac Artery, dist = 159.6 cm./sec. Common Femoral Artery, mid = 301 cm./sec. Common Femoral Artery, mid = 146.8 cm./sec. No flow could be demonstrated in the SFA. No flow could be demonstrated in the SFA. Prox anast 237.9 cm/s. Prox anast 304.4 cm/s. Prox graft 138.9 cm/s. Prox graft 117.6 cm/s. Mid graft 57.7 cm/s. Mid graft 75.9 cm/s. Dist graft 50.4 cm/s. Dist graft 75.9 cm/s. Dist anast 70.5 cm/s. Dist anast 86.9 cm/s. Profunda Femoral Artery = 241.5 cm./sec. Profunda Femoral Artery = 198.3 cm./sec. Popliteal Artery, mid = 88.7 cm./sec. Popliteal Artery, mid = 91.3 cm./sec. Ant. Tibial Artery, prox = 90.5 cm./sec. Ant.Tibial Artery, prox = 143.8 cm./sec. Ant. Tibial Artery, mid = 127 cm./sec. Ant Tibial Artery, mid = 132.8 cm./sec. Ant. Tibial Artery, dist = 57.6 cm./sec. Ant. Tibial Artery, distal = 93.3 cm./sec. Post. Tibial Artery, prox = 57.7 cm./sec. Post. Tibial Artery, prox = 122 cm./sec. Post. Tibial Artery, mid = 132.4 cm./sec. Post Tibial Artery, mid = 165.8 cm./sec. Post. Tibial Artery, dist = 55.8 cm./sec. Post Tibial Artery, dist. = 113.2 cm./sec. Peroneal Artery, mid = 92.3 cm./sec. Peroneal Artery,dist. = 78 cm./sec. Peroneal Artery,dist = 50.4 cm./sec. Unable to demonstrate flow inthe prox and mid Unable to demonstrate flow in the prox Peroneal Peroneal art. art. /US Art Duplex Bilat Lower Ext Interpretation Summary Right lower extremity with moderate stenosis noted in the common femoral artery in the proximal bypass graft. Otherwise good flow down through the bypass graft and tibials. Pe roneal artery occluded. Left bypass graft widely patent with no significant stenosis. Peronea l artery occluded on the left as well. Ordering Physician: Malcolm Acuna Performed By: Min Giordano RVT
--- NOTE | 2021-10-03 10:54 | ART_ITS ---
Reason For Study: stricture of artery Procedure A bilateral lower extremity continuous wave Doppler with analog waveform analysis and ankle brachial indexes. Left Segmental Pressures Left brachial= 136mmHg. Left posterior tibial artery = 141mmHg. Left dorsalis pedis artery = 135mmHg. The left dorsalis pedis waveforms are triphasic. The left posterior tibial artery waveforms are triphasic. Right Segmental Pressures Right brachial= 140mmHg. Right posterior tibial artery = 82mmHg. Right dorsalis pedis artery = 114mmHg. The right dorsalis pedis waveforms are monophasic. The right posterior tibial artery waveforms are biphasic. Indices The right ankle brachial index by the dorsalis pedis is .81. The right ankle brachial index by the posterior tibial artery is .59. The left ankle brachial index by the posterior tibial artery is 1.01. The left ankle brachial index by the dorsalis pedis is .96. VL/Ankle Brachial Index Interpretation Summary Right lower extremity with mod occlusive disease at rest with an JUS 0.81. Biph asic flow noted. Left lower extremities no significant occlusive disease at rest with an JUS 1.01 and triphasic flow. Ordering Physician: Malcolm Acuna Performed By: Min Giordano, RVT
== END 2021-10-03 23:59 | disposition home or self-care (01) ==
LOC: CVS 10:46
PROVIDERS: PCP Family Medicine; Referring Provider Surgery Vascular Surgery; Visit Provider Surgery Vascular Surgery
DX: I77.1 Stricture of artery (principal); I70.213 Atherosclerosis of native arteries of extremities with intermittent claudication, bilateral legs; I25.10 Atherosclerotic heart disease of native coronary artery without angina pectoris; M79.89 Other specified soft tissue disorders; M79.604 Pain in right leg; I10 Essential (primary) hypertension; E78.00 Pure hypercholesterolemia, unspecified; K21.9 Gastro-esophageal reflux disease without esophagitis; E07.9 Disorder of thyroid, unspecified
CPT/HCPCS: 93922; 93925

== ENCOUNTER → 2021-11-08 | Outpatient (CLI) | payer MEDICARE, BC, SELFPAY ==
[2021-11-08 18:47] LABS: Anion Gap 5 (5-15); BUN 27 mg/dL (7-18); BUN/Creat Ratio 14.7 RATIO (10-20); Calcium,Total 9.1 mg/dL (8.5-10.1); Chloride 106 mmol/L (98-107); Cholesterol 186 mg/dL (200); Creatinine, Serum 1.84 mg/dL (0.70-1.30); EST Glomerular Filtration Rate 38 mL/min (>60); Est Glom Filt Rate - Afr Amer 46 mL/min (>60); Free T3 2.2 pg/mL (2.18-3.98); Glucose 102 mg/dL (74-106); High Density Lipoprotein 33 mg/dL; Potassium 4.5 mmol/L (3.5-5.1); Sodium Level 138 mmol/L (136-145); T4 Free Direct 1.22 ng/dL (0.76-1.46); Thyroid Stim Hormone (TSH) 6.36 uIU/mL (0.358-3.74); Triglycerides 272 mg/dL; Very Low Density Lipoprotein 54 mg/dL (5-40)
== END | disposition home or self-care (01) ==
LOC: MFPLAB 15:26
PROVIDERS: PCP Family Medicine; Referring Provider Family Medicine; Visit Provider Family Medicine
DX: I10 Essential (primary) hypertension (principal); E03.9 Hypothyroidism, unspecified
CPT/HCPCS: 36415; 80048; 80061; 84439; 84443; 84481

== ENCOUNTER → 2022-01-09 | Outpatient (CLI) | payer MEDICARE, BC, SELFPAY ==
[2022-01-09 18:12] LABS: Absolute Lymphocyte Count 1.04 X10^3/uL (0.83-4.51); Basophil# 0.04 X10^3/uL; Basophil% 0.4 % (0-1); Eosinophil# 0.43 X10^3/uL; Hematocrit 24.4 % (40-54); Hemoglobin 7.6 g/dL (13.0-16.5); Lymphocyte # 1.04 X10^3/ul (0.83-4.51); Lymphocyte % 9.8 % (19-41); Mean Corp Hgb Conc 31.1 g/dL (32-36); Mean Corpuscular Hgb 27.4 pg (27.0-32.0); Mean Corpuscular Volume 88.1 fL (80-94); Mean Platelet Vol. 10.4 fl (6.2-12.0); Monocyte# 1.09 X10^3/uL; Monocyte% 10.2 % (0-10); NRBC Flagged by Analyzer 0 % (0-5); Neutrophil # 8.01 X10^3/uL (2.7-7.7); Neutrophil % 75.2 % (47-70); Platelet Count 320 K/mm3 (150-450); RBC Distribution Width CV 14.8 % (11.6-14.6); RBC Distribution Width SD 48.2 fl (35.1-43.9); RET-HE 23.1 pg (30-35); Red Blood Count 2.77 M/mm3 (4.6-6.2); Reticulocyte Count 1.42 % (0.5-1.5); White Blood Count 10.7 K/mm3 (4.4-11.0)
[2022-01-09 18:52] LABS: Vitamin B12 498 pg/mL (211-911)
[2022-01-09 18:57] LABS: Anion Gap 7 (5-15); BUN 30 mg/dL (7-18); BUN/Creat Ratio 15.2 RATIO (10-20); Calcium,Total 9.1 mg/dL (8.5-10.1); Chloride 105 mmol/L (98-107); Creatinine, Serum 1.98 mg/dL (0.70-1.30); EST Glomerular Filtration Rate 35 mL/min (>60); Est Glom Filt Rate - Afr Amer 43 mL/min (>60); Ferritin 44 ng/mL (26-388); Glucose 124 mg/dL (74-106); Iron 13 ug/dL (65-175); Iron Binding Capacity,Total 274 ug/dL (250-450); PERCENT IRON SATURATION 4.7 % (15.0-55.0); Potassium 4.6 mmol/L (3.5-5.1); Sodium Level 136 mmol/L (136-145); Thyroid Stim Hormone (TSH) 1.14 uIU/mL (0.358-3.74)
== END | disposition home or self-care (01) ==
LOC: MFPLAB 15:05
PROVIDERS: Visit Provider Family Medicine
DX: D64.9 Anemia, unspecified (principal); R42 Dizziness and giddiness
CPT/HCPCS: 36415; 80048; 82607; 82728; 83540; 83550; 84443; 85025; 85045

== ENCOUNTER 2022-01-10 10:51 | Emergency (ER) | payer MEDICARE, BC, SELFPAY ==
[2022-01-10 10:53] VITALS: BP 114/46; PULSE 78; RESP 18; TEMP 37.3; O2SAT 97; BMI 27.3
--- NOTE | 2022-01-10 11:21 | RAD_ITS ---
STUDY: X-RAY CHEST REASON FOR EXAM: Male, 76 years old. Cough TECHNIQUE: Single AP portable view of the chest. COMPARISON: None. FINDINGS: EKG electrodes are seen. Small right pleural effusion. There is a 4.6 cm x 2.6 cm rounded nodular density in the lateral aspect of the right lower lobe. This may represent fluid within the major fissure versus possible infiltrate/nodule. Hyperinflation. Normal size heart. Normal mediastinum and angel. Normal visualized pulmonary arteries. There is atherosclerotic calcification of the aortic arch with tortuosity. There are degenerative changes of the visualized thoracic spine. Normal visualized ribs, clavicles, and shoulders. There is no demonstrated abnormality of the visualized soft tissue structures of the upper abdomen. RAD/Chest 1 View (Portable) IMPRESSION: Small right pleural effusion with right basilar atelectasis and nodular density as described. Electronically Signed: Martin Terrazas MD at 12:15 EDT ,
--- NOTE | 2022-01-10 11:21 | EKG12_ITS ---
Test Reason : WEAKNESS Blood Pressure : / mmHG Vent. Rate : 070 BPM Atrial Rate : 070 BPM P-R Int : 164 ms QRS Dur : 086 ms QT Int : 374 ms P-R-T Axes : 043 003 025 degrees QTc Int : 403 ms Normal sinus rhythm Normal ECG Confirmed by DELLA LEAL, DIYA ([id number]), subeditor EUGENE CABALLERO ([id number]) on 01/11/2022 11:20:17 A M Referred By: NEGRITO Confirmed By:SEEMA HULL MD
--- NOTE | 2022-01-10 11:23 | EX.ED.DYSGE1 ---
HPI History of Present Illness Chief Complaint: Weakness Detail of Chief Complaint: Generalized weakness and anemia Informant: patient Narrative Narrative: Patient presents to the emergency department with concern for generalized weakness and anemia. Patient had blood work yesterday and was told by primary care physicians to follow-up in the ER for possible transfusion of blood. Patient states that he has been somewhat lightheaded for at least a week. He has had a cough that noticed 2 or 3 days ago but the patient thinks may be has been going on for a week. Patient at times coughing up some thick phlegm. He describes some discomfort in the right upper chest with cough at times. Patient currently being treated for bladder cancer however has not started chemotherapy yet. Patient developed a fever yesterday up to 100.1. He denies dysuria. Patient denies blood in the stool or black tarry stool. Prior similar symptoms: No PFSH PFSH Medical History (Updated 01/10/22 @ 13:[address] Toma Nguyen, DO) Back pain Bladder disease Former smoker Gastric reflux High cholesterol History of edema History of hiatal hernia History of pain when walking Hypertension Pressure ulcer Thyroid disease Tinnitus Wears dentures Wears glasses Home Medications L.acidophilus-B.animalis-B.longum 15 billion cell capsule (Florajen Digestion) 1 cap PO DAILY IMMUNE HEALTH 02/13/21 [History Last Taken 01/09/22] aspirin 81 mg tablet,delayed release (Adult Aspirin Regimen) 81 mg PO QHS HEALTH 02/13/21 [History Last Taken 01/09/22] latanoprost 0.005 % eye drops 1 drp ophthalmic (eye) QHS GLUCOMA 02/13/21 [History Last Taken 01/09/22] lisinopril 10 mg tablet 10 mg PO QHS BP 02/13/21 [History Last Taken 01/09/22] gfcvmpwnbpyj-aebbkeev-wdjoqt tablet 0.5 tab PO BID SUPPLEMENT 02/13/21 [History Last Taken 01/09/22] omega-3 fatty acids 1,000 mg capsule (Fish Oil Concentrate) 1,200 mg PO DAILY SUPPLEMENT 02/13/21 [History Last Taken 01/09/22] pantoprazole 40 mg tablet,delayed release (Protonix) 40 mg PO 1400 GERD 02/13/21 [History Last Taken 01/09/22] simvastatin 40 mg tablet 40 mg PO QHS CHOLESTEROL 02/13/21 [History Last Taken 01/09/22] levothyroxine 88 mcg tablet 88 mcg PO DAILY THYROID 05/10/21 [History Last Taken 01/10/22] clopidogrel 75 mg tablet (Plavix) 75 mg PO DAILY BLOOD THINNER 08/23/21 [History Last Taken 01/09/22] gabapentin 600 mg tablet 600 mg PO TID NERVE PAIN 08/23/21 [History Last Taken 01/10/22] oxycodone-acetaminophen 5 mg-325 mg tablet 1 tab PO Q8H PRN Pain 08/23/21 [History Last Taken 01/09/22] rivaroxaban 2.5 mg tablet 2.5 mg PO BID BLOOD THINNER 08/23/21 [History Last Taken 01/09/22] brimonidine 0.2 % eye drops 1 drp RIGHT EYE BID GLUCOMA 09/30/21 [History Last Taken 01/10/22] coQ10 (ubiquinol) 100 mg capsule 100 mg PO BID SUPPLEMENT 01/10/22 [History Last Taken 01/09/22] ferrous gluconate 324 mg (38 mg iron) tablet 324 mg PO BID #60 tabs 01/10/22 [Rx Last Taken Unknown] levofloxacin 750 mg tablet 750 mg PO DAILY #7 tabs 01/10/22 [Rx Last Taken Unknown] Allergy/AdvReac Type Severity Reaction Status Date / Time Iodinated Contrast Media Allergy Hives Verified 01/10/22 10:52 Family History Mother Cancer Surgical History H/O arterial bypass of lower limb History of angioplasty of peripheral vessel Hx of decompressive lumbar laminectomy Social History household members: spouse housing: house Smoking Status: Former smoker alcohol intake: never what type of physical activity do you participate in: none do you feel safe at home: Yes ROS ROS ED Review of Systems ROS Unobtainable: other Constitutional Constitutional ED: Reports fever(s) and lethargy; Denies chills, sweats or weight loss Eyes Eyes: Denies blurry vision, change in vision or diplopia ENT ENT ED: Denies rhinorrhea or sore throat Cardiovascular Cardiovascular: Reports chest pain and racing heartbeat; Denies orthopnea Respiratory/Chest Respiratory/Chest: Reports cough, dyspnea and dyspnea on exertion; Denies orthopnea or sputum Gastrointestinal Gastrointestinal: Denies abdominal pain, diarrhea, nausea or vomiting Genitourinary Genitourinary ED: Denies dysuria, hematuria or urinary frequency Musculoskeletal Musculoskeletal: Denies arthralgias, back pain, myalgias or neck pain Integumentary Denies abscess, Abrasions or rash Neurologic Neurologic: Reports weakness; Denies headache(s) Psychiatric Psychiatric: Denies anxiety, depression or suicidal thoughts Endocrine Endocrinology: Denies polydipsia, polyphagia or polyuria Hematologic/Lymphatic Hematologic/Lymphatic: Denies easy bleeding, easy bruising or lymphadenopathy Allergic/Immunologic Allergic/Immunologic ED: Denies mouth swelling, tongue swelling or urticaria EXAM Physical Exam Const Vital Signs: 01/10/22 10:53 01/10/22 11:11 01/10/22 14:03 Temperature 99.1 F 98.6 F Temperature Source Oral Oral Pulse Rate 78 62 Respiratory Rate 18 20 H Respiratory Pattern Normal Blood Pressure 114/46 L 114/55 L Blood Pressure Mean 68 74 Pulse Ox 97 96 Oxygen Delivery Method Room Air Room Air 01/10/22 14:11 Temperature 98.6 F Temperature Source Oral Pulse Rate 59 L Respiratory Rate 16 Respiratory Pattern Blood Pressure 114/53 L Blood Pressure Mean 73 Pulse Ox 96 Oxygen Delivery Method Room Air Positive well nourished and well developed General Appearance ED: well developed and NAD HEENT Reports TM's clear and moist mucous membranes normocephalic and atraumatic; Negative for trauma or tenderness Tympanic Membrane ED: Yes TM's clear Eyes PERRL and EOMs intact bilaterally General Eye ED: Negative for pale conjunctiva or scleral icterus Neck no lymphadenopathy, supple and no JVD General: Negative for tenderness Chest Wall inspection of chest normal and palpation of chest normal Chest: Negative for tenderness Resp normal respiratory effort and clear to auscultation bilaterally Effort and Inspection: Negative for respiratory distress or pain with movement Auscultation: Negative for rhonchi, wheezes or diminished lung sounds Cardio regular rate, regular rhythm, S1 normal heart sound, S2 normal heart sound and no murmurs Peripheral Pulses: pulses 2+ throughout GI normal to inspection, nondistended, normoactive bowel sounds, soft to palpation, non-tender, non-distended and no masses Back/Spine no CVA tenderness and no thoracic nor lumbar tenderness Extremity normal to inspection General Extremety ED: Negative for edema General Extremity: Negative for edema Neuro oriented x3, CN's II-XII intact bilaterally, no sensory deficits noted and gait normal Sensorium / Orientation: awake, alert, oriented to person, oriented to place and oriented to time Motor Exam: strength 5/5 throughout and strength abnormal Psych mental status grossly normal Skin no rashes or lesions noted and no wounds MDM MDM MDM Narrative Medical decision making narrative: On arrival. Lab work significant for an elevated white blood cell count of 13.6. Chemistries were unremarkable. Creatinine was elevated 2.0. Urinalysis was unremarkable. Chest x-ray showed right lower lobe effusion and a density in the right lower lobe that could be infectious and consistent with pneumonia. Patient had blood cultures performed. O2 sat on room air while resting in bed was down to 90%. Lactate was negative at 1.0. Patient had a rectal exam performed and he Hemoccult is pending but the stool was brown without evidence of gross blood or melena. I discussed case with hospitalist will evaluate patient for admission for pneumonia, weakness, anemia. Patient was evaluated by hospitalist and had discussion with patient and they agreed that patient would go home with antibiotics and ferrous gluconate and close follow-up with primary care physician. Patient advised to return if increasing shortness of breath or condition should worsen anyway. Lab Data Attestation: I reviewed the patient's lab results. Labs: Laboratory Results - last 24 hr 01/10/22 01/10/22 01/10/22 11:30 11:48 11:48 WBC 13.6 H RBC 2.85 L Hgb 7.8 L Hct 25.1 L MCV 88.1 MCH 27.4 MCHC 31.1 L RDW Std Deviation 48.8 H RDW Coeff of Jesse 15.0 H Plt Count 340 MPV 9.9 Immature Gran % (Auto) 0.400 Neut % (Auto) 77.2 H Lymph % (Auto) 9.8 L [place] % (Auto) 9.0 Eos % (Auto) 3.3 Baso % (Auto) 0.3 Absolute Neuts (auto) 10.5 H Absolute Lymphs (auto) 1.33 Nucleated RBC % 0 Sodium 137 Potassium 4.8 Chloride 106 Carbon Dioxide 25.0 Anion Gap 6 BUN 28 H Creatinine 2.00 H Estim Creat Clear Calc 35.03 Est GFR (MDRD) Af Amer 42 L Est GFR (MDRD) Non-Af 35 L BUN/Creatinine Ratio 14.0 Glucose 121 H Lactic Acid Calcium 9.2 Troponin I High Sens 11 Urine Color Yellow Urine Clarity Sl. Cloudy Urine pH 6.0 Ur Specific [place] 1.015 Urine Protein 15 H Urine Glucose (UA) Normal Urine Ketones Negative Urine Occult Blood Negative Urine Nitrite Negative Urine Bilirubin Negative Urine Urobilinogen Normal Ur Leukocyte Esterase 25 H Urine RBC 0 SEEN Urine WBC 0-5 SEEN Ur Squamous Epith Cells 0 SEEN Urine Bacteria 0 SEEN Urine Mucus 0 SEEN Blood Type Antibody Screen 01/10/22 01/10/22 11:48 11:48 WBC RBC Hgb Hct MCV MCH MCHC RDW Std Deviation RDW Coeff of Jesse Plt Count MPV Immature Gran % (Auto) Neut % (Auto) Lymph % (Auto) [place] % (Auto) Eos % (Auto) Baso % (Auto) Absolute Neuts (auto) Absolute Lymphs (auto) Nucleated RBC % Sodium Potassium Chloride Carbon Dioxide Anion Gap BUN Creatinine Estim Creat Clear Calc Est GFR (MDRD) Af Amer Est GFR (MDRD) Non-Af BUN/Creatinine Ratio Glucose Lactic Acid 1.0 Calcium Troponin I High Sens Urine Color Urine Clarity Urine pH Ur Specific [place] Urine Protein Urine Glucose (UA) Urine Ketones Urine Occult Blood Urine Nitrite Urine Bilirubin Urine Urobilinogen Ur Leukocyte Esterase Urine RBC Urine WBC Ur Squamous Epith Cells Urine Bacteria Urine Mucus Blood Type A POSITIVE Antibody Screen NEGATIVE Radiography Chest X-Ray - ED: 1 View Diagnostic Testing: Clinical Impression(s) from Imaging Studies Chest X-Ray 01/10/22 11:21 IMPRESSION: Small right pleural effusion with right basilar atelectasis and nodular density as described. Electronically Signed: Martin Terrazas MD at 12:15 EDT , 1 view chest x-ray obtained interpreted by myself as right lower lobe effusion with increased markings in the right lower lobe suspicious for pneumonia. Radiology essentially in agreement. EKG Initial EKG: Attestation: I personally reviewed and interpreted this EKG as follows: Comments: Sinus rhythm with a rate of 70 bpm with no acute ST segment changes Discharge Plan Triage Chief Complaint: Weakness ED Provider: Toma Nguyen Dx/Rx/DC Orders Clinical Impression: Pneumonia, Weakness, Anemia Prescriptions: New ferrous gluconate 324 mg (38 mg iron) tablet 324 mg PO BID Qty: 60 0RF levofloxacin 750 mg tablet 750 mg PO DAILY Qty: 7 0RF No Action pantoprazole [Protonix] 40 mg tablet,delayed release (DR/EC) 40 mg PO 1400 simvastatin 40 mg tablet 40 mg PO QHS Label Comments: take 1 tablet by mouth once daily lisinopril 10 mg tablet 10 mg PO QHS Label Comments: take 1 tablet by mouth once daily latanoprost 0.005 % drops 1 drp ophthalmic (eye) QHS Rx Instructions: B/L eyes aspirin [Adult Aspirin Regimen] 81 mg tablet,delayed release (DR/EC) 81 mg PO QHS Hold Instructions: Resume on 10/06/21. rmmmmscsrwch-maduiwlj-btkqrf Tablet 0.5 tab PO BID omega-3 fatty acids [Fish Oil Concentrate] 1,000 mg capsule 1,200 mg PO DAILY Florajen Digestion 15 billion cell capsule 1 cap PO DAILY gabapentin 600 mg tablet 600 mg PO TID rivaroxaban 2.5 mg tablet 2.5 mg PO BID Hold Instructions: Resume on 10/06/21. oxycodone-acetaminophen 5-325 mg tablet 1 tab PO Q8H PRN (Reason: Pain) Label Comments: take 1 tablet by mouth up to three times a day NEEDED FOR PAIN clopidogrel [Plavix] 75 mg tablet 75 mg PO DAILY Hold Instructions: Resume on 10/06/21. Rx Instructions: takes at 1400 levothyroxine 88 mcg tablet 88 mcg PO DAILY Label Comments: take 1 tablet by mouth once daily brimonidine 0.2 % drops 1 drp RIGHT EYE BID Label Comments: instill 1 drop into right eye twice a day Rx Instructions: takes 1200 and 1900 coQ10 (ubiquinol) 100 mg Capsule 100 mg PO BID Primary Care Provider: Sreedhar Gilman Referrals: Sreedhar Gilman MD [Primary Care Provider] - 3-5 Days Disposition Disposition: Home, Self Care
[2022-01-10] MEDS: 0.9% Normal Saline 1,000 ML 150 ML IV (11:46)
[2022-01-10 11:59] LABS: Bacteria 0 SEEN /hpf (None Seen); Mucous, Urine 0 SEEN /hpf (<or=2+); Red Blood Cells-Urine 0 SEEN /hpf (0-5); Squamous Epithelial Cells - UA 0 SEEN /hpf (0-5)
[2022-01-10 12:00] LABS: Absolute Lymphocyte Count 1.33 X10^3/uL (0.83-4.51); Absolute Neutrophil Count 10.5 X10^3/uL (2.0-7.7); Basophil# 0.04 X10^3/uL; Basophil% 0.3 % (0-1); Eosinophil# 0.45 X10^3/uL; Eosinophils% 3.3 % (0-5); Hematocrit 25.1 % (40-54); Hemoglobin 7.8 g/dL (13.0-16.5); Lymphocyte # 1.33 X10^3/ul (0.83-4.51); Lymphocyte % 9.8 % (19-41); Mean Corp Hgb Conc 31.1 g/dL (32-36); Mean Corpuscular Hgb 27.4 pg (27.0-32.0); Mean Corpuscular Volume 88.1 fL (80-94); Mean Platelet Vol. 9.9 fl (6.2-12.0); Monocyte# 1.22 X10^3/uL; NRBC Flagged by Analyzer 0 % (0-5); Neutrophil % 77.2 % (47-70); Platelet Count 340 K/mm3 (150-450); RBC Distribution Width SD 48.8 fl (35.1-43.9); Red Blood Count 2.85 M/mm3 (4.6-6.2); White Blood Count 13.6 K/mm3 (4.4-11.0)
[2022-01-10 12:03] LABS: Color, Urine Yellow (Yellow); Glucose, Dipstick Normal (Normal); Ketone-Dipstick Negative (Negative); Leukocyte Esterase-Dipstick 25 /ul (Negative); Nitrite-Dipstick Negative (Negative); Occult Blood-Urine Negative /ul (Negative); Protein-Dipstick 15 mg/dl (Negative); Specific Gravity, Urine 1.015 (1.002-1.030); Urine Bilirubin Dipstick Negative (Negative); Urine Clarity Sl. Cloudy (Clear); Urine Urobilinogen Normal (Normal)
[2022-01-10 12:10] LABS: White Blood Cells 0-5 SEEN /hpf (0-5)
[2022-01-10 12:20] LABS: Anion Gap 6 (5-15); BUN 28 mg/dL (7-18); Calcium,Total 9.2 mg/dL (8.5-10.1); Chloride 106 mmol/L (98-107); EST Glomerular Filtration Rate 35 mL/min (>60); Est Glom Filt Rate - Afr Amer 42 mL/min (>60); Estimated Creatinine Clearance 35.03 ml/min; Glucose 121 mg/dL (74-106); Potassium 4.8 mmol/L (3.5-5.1); Sodium Level 137 mmol/L (136-145); Troponin-I HS 11 pg/mL (3.0-78.0)
[2022-01-10 13:55] VITALS: O2SAT 96
[2022-01-10] MEDS: Ceftriaxone 1 GM/50 ML BAG IV (14:02)
[2022-01-10 14:03] VITALS: BP 114/55; PULSE 62; RESP 20; TEMP 37; O2SAT 96
[2022-01-10 14:11] VITALS: BP 114/53; PULSE 59; RESP 16; TEMP 37; O2SAT 96
--- NOTE | 2022-01-10 16:10 | PN.HOSP_ITS ---
Subjective Subjective 76-year-old male came into the hospital because he was feeling weak. His doctor had obtained CBC yesterday was 7.6 on repeat today was 7.8. He denies any dark stools and a fecal occult blood test was negative. He also has a history of bladder cancer that he says is mostly been resected, his UA was negative for any blood. His other vital signs were stable he does have an elevation in his white count and chest x-ray in the ER demonstrated possible pneumonia which fits with his leukocytosis. He is afebrile but has been feeling a little bit short of breath. Both at rest and on ambulation he did not require any oxygen in the ER. Objective Data Objective Data Vital Signs: Vital Signs Temp Pulse Resp BP Pulse Ox O2 Del Method 98.6 F 59 L 16 114/53 L 96 Room Air 01/10/22 14:11 01/10/22 14:11 01/10/22 14:11 01/10/22 14:11 01/10/22 14:11 01/10/22 14:11 Oxygen Delivery Method Room Air Weight: 201 lb 8.04 oz Body Mass Index (BMI) 27.3 Intake & Output: Intake and Output for Last 24 Hours 01/09/22 01/10/22 01/11/22 03:59 03:59 03:59 Intake Total 50 / 50 Balance 50 / 50 Lab / Micro Data Result Diagrams: 01/10/22 11:48 01/10/22 11:48 Labs: Laboratory Results - last 24 hr 01/10/22 11:30: Urine Color Yellow, Urine Clarity Sl. Cloudy, Urine pH 6.0, Ur Specific [place] 1.015, Urine Protein 15 H, Urine Glucose (UA) Normal, Urine Ketones Negative, Urine Occult Blood Negative, Urine Nitrite Negative, Urine Bilirubin Negative, Urine Urobilinogen Normal, Ur Leukocyte Esterase 25 H, Urine RBC 0 SEEN, Urine WBC 0-5 SEEN, Ur Squamous Epith Cells 0 SEEN, Urine Bacteria 0 SEEN, Urine Mucus 0 SEEN 01/10/22 11:48: WBC 13.6 H, RBC 2.85 L, Hgb 7.8 L, Hct 25.1 L, MCV 88.1, MCH 27.4, MCHC 31.1 L, RDW Std Deviation 48.8 H, RDW Coeff of Jesse 15.0 H, Plt Count 340, MPV 9.9, Immature Gran % (Auto) 0.400, Neut % (Auto) 77.2 H, Lymph % (Auto) 9.8 L, [place] % (Auto) 9.0, Eos % (Auto) 3.3, Baso % (Auto) 0.3, Absolute Neuts (auto) 10.5 H, Absolute Lymphs (auto) 1.33, Nucleated RBC % 0 01/10/22 11:48: Sodium 137, Potassium 4.8, Chloride 106, Carbon Dioxide 25.0, Anion Gap 6, BUN 28 H, Creatinine 2.00 H, Estim Creat Clear Calc 35.03, Est GFR (MDRD) Af Amer 42 L, Est GFR (MDRD) Non-Af 35 L, BUN/Creatinine Ratio 14.0, Glucose 121 H, Calcium 9.2, Troponin I High Sens 11 01/10/22 11:48: Lactic Acid 1.0 01/10/22 11:48: Blood Type A POSITIVE, Antibody Screen NEGATIVE Micro: Microbiology 01/10/22 13:35 Stool Stool Occult Blood (MITCHELL) - Final 01/10/22 11:35 Nasal Secretion SARS-CoV-2 & FLU Antigen (Rapid) - Final Radiography Diagnostic Testing: Radiology Impression Chest X-Ray 01/10/22 11:21 IMPRESSION: Small right pleural effusion with right basilar atelectasis and nodular density as described. Electronically Signed: Martin Terrazas MD at 12:15 EDT Reading Location ID and State: [address] [place] [address] , Service support , Physical Exam Const alert, oriented x3 and no apparent distress General Appearance: cooperative HEENT normocephalic and moist oral mucous membranes Eyes PERRL, EOMs intact bilaterally and conjunctivae normal Neck supple and no JVD Resp normal respiratory effort, no retractions and no use of accessory muscles Auscultation: crackles right base; Negative for rales, rhonchi or wheezes Cardio regular rate, regular rhythm, S1 normal heart sound, S2 normal heart sound and no murmurs GI soft to palpation, non-tender and non-distended; Negative for hepatosplenomegaly Extremity no clubbing, cyanosis or edema Skin no rashes or lesions noted Neuro no focal motor deficits and no sensory deficits noted Psych affect normal Appearance: appropriate Assessment & Plan Assessment/Plan (1) Pneumonia: PLAN: Plan 1. Right lower lobe pneumonia/anemia of unknown etiology ? We will continue with his antibiotics. I did discuss with him the possibility of coming in for an observation admission to continue with his IV antibiotics and potentially be discharged in a day or 2 versus going home and following up with his own doctor as an outpatient. He and his both felt that he would do okay at home and would prefer to go home. They recognize that if anything were to happen that they would need to come back to the hospital. He does not require oxygen either at rest or with ambulation. ? His anemia is normocytic and slightly hypochromic. There is no current evidence of any acute bleeding and he does not meet the threshold for transfusion. I discussed with him and his that we could bring him in and see if he has an episode of bleeding while here that we could identify and try to treat but that he would not receive a blood transfusion. He feels like he can go home and if he has any episodes of bleeding come back into the hospital. I did instruct the ED discission to provide with iron tablet at this time. He is on Xarelto however the dose is 2.5 twice daily which is unlikely to be significant in causing a bleed as this is extremely below standard dosing levels. Charges/Coding Visit Charges Office Visits / Consults: 59231 ED Visit; Low/Mod Severity
[2022-01-10 16:28] VITALS: BP 117/71; PULSE 61; RESP 16; O2SAT 96
== END 2022-01-10 16:29 | disposition home or self-care (01) ==
PROVIDERS: Emergency Provider Emergency Medicine; PCP Family Medicine; Visit Provider Emergency Medicine
DX: J18.9 Pneumonia, unspecified organism (principal); C67.9 Malignant neoplasm of bladder, unspecified; R53.1 Weakness; D64.9 Anemia, unspecified; K21.9 Gastro-esophageal reflux disease without esophagitis; E78.00 Pure hypercholesterolemia, unspecified; Z87.891 Personal history of nicotine dependence; Z79.899 Other long term (current) drug therapy; Z79.82 Long term (current) use of aspirin; I10 Essential (primary) hypertension
CPT/HCPCS: 71045; 80048; 81001; 82274; 83605; 84484; 85025; 86850; 86900; 86901; 87040; 87428; 93005; 96361; 96365; 99285; J7030; A4216

== ENCOUNTER → 2022-01-17 | Outpatient (CLI) | payer MEDICARE, BC, SELFPAY ==
[2022-01-17 17:40] LABS: Absolute Lymphocyte Count 1.73 X10^3/uL (0.83-4.51); Absolute Neutrophil Count 9.7 X10^3/uL (2.0-7.7); Basophil# 0.06 X10^3/uL; Basophil% 0.5 % (0-1); Eosinophil# 0.59 X10^3/uL; Eosinophils% 4.5 % (0-5); Hematocrit 24.7 % (40-54); Hemoglobin 7.6 g/dL (13.0-16.5); Lymphocyte # 1.73 X10^3/ul (0.83-4.51); Lymphocyte % 13.2 % (19-41); Mean Corp Hgb Conc 30.8 g/dL (32-36); Mean Corpuscular Hgb 26.8 pg (27.0-32.0); Mean Platelet Vol. 9.5 fl (6.2-12.0); Monocyte# 0.94 X10^3/uL; Monocyte% 7.2 % (0-10); NRBC Flagged by Analyzer 0 % (0-5); Neutrophil # 9.71 X10^3/uL (2.7-7.7); Platelet Count 495 K/mm3 (150-450); RBC Distribution Width CV 15.4 % (11.6-14.6); RBC Distribution Width SD 49.5 fl (35.1-43.9); Red Blood Count 2.84 M/mm3 (4.6-6.2); White Blood Count 13.1 K/mm3 (4.4-11.0)
[2022-01-17 18:12] LABS: D-Dimer Quantitative (DVT/PE) 6.59 FEU/ug/m (0.27-0.49)
[2022-01-17 18:19] LABS: Anion Gap 5 (5-15); BUN 26 mg/dL (7-18); BUN/Creat Ratio 10.8 RATIO (10-20); Calcium,Total 9.4 mg/dL (8.5-10.1); Chloride 103 mmol/L (98-107); EST Glomerular Filtration Rate 28 mL/min (>60); Est Glom Filt Rate - Afr Amer 34 mL/min (>60); Glucose 105 mg/dL (74-106); Potassium 4.7 mmol/L (3.5-5.1); Sodium Level 135 mmol/L (136-145); Thyroid Stim Hormone (TSH) 6.82 uIU/mL (0.358-3.74)
== END | disposition home or self-care (01) ==
LOC: MFPLAB 15:58
PROVIDERS: PCP Family Medicine; Visit Provider Family Medicine
DX: E03.9 Hypothyroidism, unspecified (principal); N18.9 Chronic kidney disease, unspecified; R07.9 Chest pain, unspecified; D64.9 Anemia, unspecified
CPT/HCPCS: 36415; 80048; 84443; 85025; 85379

== ENCOUNTER → 2022-01-18 | Outpatient (CLI) | payer MEDICARE, BC, SELFPAY ==
--- NOTE | 2022-01-18 14:30 | RAD_ITS ---
STUDY: X-RAY CHEST REASON FOR EXAM: Male, 76 years old. ELEVATED D DIMER TECHNIQUE: PA and lateral views of the chest. COMPARISON: Comparison is made with prior study dated 01/10/2022. FINDINGS: Hyperinflation. Stable pleural parenchymal changes at the right lung base. Mild increased markings at the left lung base. This is unchanged. Normal size heart. Normal mediastinum and angel. Normal visualized pulmonary arteries. There is atherosclerotic calcification of the aortic arch with tortuosity. There is demineralization of the osseous structures. Normal visualized ribs, clavicles, and shoulders. There is no demonstrated abnormality of the visualized soft tissue structures of the upper abdomen. RAD/Chest PA and Lateral IMPRESSION: Stable pleural parenchymal changes at the right lung base. Electronically Signed: Martin Terrazas MD at 15:11 EDT ,
== END | disposition home or self-care (01) ==
LOC: MTRAD 14:29
PROVIDERS: PCP Family Medicine; Referring Provider Family Medicine; Visit Provider Family Medicine
DX: R79.89 Other specified abnormal findings of blood chemistry (principal)
CPT/HCPCS: 71046

== ENCOUNTER → 2022-01-24 | Outpatient (CLI) | payer MEDICARE, BC, SELFPAY ==
--- NOTE | 2022-01-24 11:19 | NM_ITS ---
CLINICAL: Male, 76 years old. ELEVATED D DIMER ,PNEUMONIA, WEAKNESS -- CHEST XRAY TODAY TOO NUCLEAR VENTILATION/PERFUSION - LUNG TECHNIQUE: The patient was administered 5 mCi of Tc MAA followed by a perfusion lung scan. The patient was administered 50 mCi of Tc DTPA aerosol followed by a ventilation lung scan. Comparison made to prior chest radiograph dated . COMPARISON STUDIES : Comparison made with prior chest radiograph dated 01/18/2022. FINDINGS: The pulmonary perfusion study demonstrates uniform perfusion throughout both lung yarbrough. There are no demonstrated segmental or subsegmental perfusion defects The ventilation study demonstrates uniform ventilation throughout both lung yarbrough. There are no segmental or subsegmental ventilation abnormalities. NM/Lung Scan Vent/Perf IMPRESSION: Normal 99m Tc MAA pulmonary perfusion ventilation imaging survey, according to revised PIOPED interpretive criteria. Electronically Signed: Martin Terrazas MD at 12:11 EDT ,
--- NOTE | 2022-01-24 12:10 | RAD_ITS ---
STUDY: X-RAY CHEST REASON FOR EXAM: Male, 76 years old. ELEVATED D DIMER TECHNIQUE: PA and lateral views of the chest. COMPARISON: Comparison is made with prior study dated 01/18/2022. FINDINGS: Stable pleural parenchymal changes at the right lung base. The left lung is clear. Hyperinflation. There is no demonstrated pleural abnormality. Normal size heart. Normal mediastinum and angel. Normal visualized pulmonary arteries. There is atherosclerotic calcification of the aortic arch with tortuosity. There is demineralization of the osseous structures. Normal visualized ribs, clavicles, and shoulders. There is no demonstrated abnormality of the visualized soft tissue structures of the upper abdomen. RAD/Chest PA and Lateral IMPRESSION: Stable pleural parenchymal changes at the right lung base. Electronically Signed: Martin Terrazas MD at 8:01 EDT ,
== END | disposition home or self-care (01) ==
PROVIDERS: PCP Family Medicine; Referring Provider Family Medicine; Visit Provider Family Medicine
DX: R79.89 Other specified abnormal findings of blood chemistry (principal)
CPT/HCPCS: 71046; 78582; A9540; A9567

== ENCOUNTER → 2022-02-05 | Outpatient (CLI) | payer MEDICARE, BC, SELFPAY ==
[2022-02-05 15:17] LABS: Absolute Lymphocyte Count 1.93 X10^3/uL (0.83-4.51); Absolute Neutrophil Count 3.6 X10^3/uL (2.0-7.7); Basophil# 0.04 X10^3/uL; Basophil% 0.6 % (0-1); Eosinophil# 0.57 X10^3/uL; Eosinophils% 8.5 % (0-5); Hematocrit 27.8 % (40-54); Hemoglobin 8.5 g/dL (13.0-16.5); Lymphocyte # 1.93 X10^3/ul (0.83-4.51); Lymphocyte % 28.9 % (19-41); Mean Corp Hgb Conc 30.6 g/dL (32-36); Mean Corpuscular Hgb 27.7 pg (27.0-32.0); Mean Corpuscular Volume 90.6 fL (80-94); Mean Platelet Vol. 11.6 fl (6.2-12.0); Monocyte# 0.54 X10^3/uL; Monocyte% 8.1 % (0-10); NRBC Flagged by Analyzer 0 % (0-5); Neutrophil # 3.58 X10^3/uL (2.7-7.7); Neutrophil % 53.8 % (47-70); Platelet Count 217 K/mm3 (150-450); RBC Distribution Width CV 19.7 % (11.6-14.6); Red Blood Count 3.07 M/mm3 (4.6-6.2); White Blood Count 6.7 K/mm3 (4.4-11.0)
[2022-02-05 15:24] LABS: Anion Gap 7 (5-15); BUN 30 mg/dL (7-18); BUN/Creat Ratio 17.5 RATIO (10-20); Calcium,Total 8.9 mg/dL (8.5-10.1); Chloride 108 mmol/L (98-107); Creatinine, Serum 1.71 mg/dL (0.70-1.30); EST Glomerular Filtration Rate 42 mL/min (>60); Est Glom Filt Rate - Afr Amer 50 mL/min (>60); Glucose 87 mg/dL (74-106); Potassium 4.9 mmol/L (3.5-5.1); Sodium Level 141 mmol/L (136-145)
== END | disposition home or self-care (01) ==
LOC: MFPLAB 13:55
PROVIDERS: PCP Family Medicine; Referring Provider Family Medicine; Visit Provider Family Medicine
DX: D64.9 Anemia, unspecified (principal); N19 Unspecified kidney failure
CPT/HCPCS: 36415; 80048; 85025

== ENCOUNTER 2022-02-07 08:18 | Day surgery (SDC) | payer MEDICARE, BC, SELFPAY ==
[2022-02-07] VITALS (7 sets, daily range): BP systolic 92–115; BP diastolic 45–58; PULSE 79–87; RESP 16; TEMP 36.1–36.6; O2SAT 92–98; BMI 25.7
[2022-02-07] MEDS: Lactated Ringers 1,000 ML 15 ML IV (08:46)
--- NOTE | 2022-02-07 09:04 | HP.PCM_ITS ---
History and Physical Date of Admission: 02/07/22 Date of Service:? 02/02/22 MR#:[id number] Acct:[id number] Name:DAVID MORENO Rep #: [id number] : 1945 Provider:Dr. Addie Barnard MD Age/Sex:?76/M Location:[facility] Status:Signed Intake Vital Signs ? 01/10/2210:53 02/02/2209:13 Height 6 ft 6 ft Weight: ? 196 lb BMI ? 26.6 BP ? 90/49 L Blood Pressure Location ? Rt brachial Position ? Sitting Respiration ? 16 Pulse ? 57 L Pulse Source ? Monitor Temp ? 97.3 F L Temp Source ? Temporal Pulse Oximetry (%) ? 98 Oxygen Delivery Method ? 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 Accompanied by: Is patient in pain?: No Allergies Iodinated Contrast Media Allergy (Verified 02/05/22 10:43) Hives Medications L.acidophilus-B.animalis-B.longum 15 billion cell capsule (Florajen Digestion) 1 cap PO DAILY IMMUNE HEALTH 02/13/21 [History Confirmed 02/05/22] aspirin 81 mg tablet,delayed release (Adult Aspirin Regimen) 81 mg PO QHS HEALTH 02/13/21 [History Confirmed 02/05/22] latanoprost 0.005 % eye drops 1 drp ophthalmic (eye) QHS GLUCOMA 02/13/21 [History Confirmed 02/05/22] lisinopril 10 mg tablet 10 mg PO QHS BP 02/13/21 [History Confirmed 02/05/22] bjcazwyacvge-allunfll-bcjpll tablet 0.5 tab PO BID SUPPLEMENT 02/13/21 [History Confirmed 02/05/22] omega-3 fatty acids 1,000 mg capsule (Fish Oil Concentrate) 1,200 mg PO DAILY SUPPLEMENT 02/13/21 [History Confirmed 02/05/22] pantoprazole 40 mg tablet,delayed release (Protonix) 40 mg PO 1530 GERD 02/13/21 [History Confirmed 02/05/22] simvastatin 40 mg tablet 40 mg PO QHS CHOLESTEROL 02/13/21 [History Confirmed 02/05/22] levothyroxine 88 mcg tablet 100 mcg PO DAILY THYROID 05/10/21 [History Confirmed 02/05/22] clopidogrel 75 mg tablet (Plavix) 75 mg PO DAILY BLOOD THINNER 08/23/21 [History Confirmed 02/05/22] gabapentin 600 mg tablet 300 mg PO TID NERVE PAIN 08/23/21 [History Confirmed 02/05/22] oxycodone-acetaminophen 5 mg-325 mg tablet 1 tab PO Q8H PRN Pain 08/23/21 [History Confirmed 02/05/22] rivaroxaban 2.5 mg tablet 2.5 mg PO BID BLOOD THINNER 08/23/21 [History Confirmed 02/05/22] brimonidine 0.2 % eye drops 1 drp RIGHT EYE BID GLUCOMA 09/30/21 [History Confirmed 02/05/22] coQ10 (ubiquinol) 100 mg capsule 100 mg PO DAILY SUPPLEMENT 01/10/22 [History Confirmed 02/05/22] ferrous gluconate 324 mg (38 mg iron) tablet 324 mg PO BID #60 tabs 01/10/22 [Rx Confirmed 02/05/22] PFSH Medical History?(Updated 02/05/22 @ 11:03 by Terri Frost) Anemia Bladder disease Cancer Chest pain Former smoker Gastric reflux High cholesterol History of edema History of hiatal hernia History of pain when walking Hypertension Loss of consciousness Syncope Thyroid disease Tinnitus Wears dentures Wears glasses Surgical History?(Updated 02/05/22 @ 11:03 by Terri Frost) H/O arterial bypass of lower limb History of angioplasty of peripheral vessel History of evacuation of hematoma History of transurethral destruction of bladder lesion Hx of angioplasty Hx of decompressive lumbar laminectomy Family History? Mother Cancer Social History? household members:? spouse housing:? house Smoking Status:? Former smoker alcohol intake:? never what type of physical activity do you participate in:? none do you feel safe at home:? Yes HPI HPI HPI: DAVID CASTANON, is a 76 M who presents to the office today for anemia for endoscopy.? Patient's most recent hemoglobin 7.6 was previously 7.9 prior to that was 9 in September.? Patient did have bladder surgery in September.? Patient states he has bowel movements daily only has had black stools since being on iron.? [place] [address] did go to the ER and is currently on iron.? Prior to that did not notice any black stools.? Patient does not know a lot about his family history.? Patient has not had an EGD or colonoscopy.? Patient is currently on aspirin, Plavix, Xarelto per Dr. Acuna as he has had multiple repeat balloon angioplasties after bilateral femoropopliteal about 15 years ago ROS General General: Yes weight change and fatigue; No appetite, colon cancer, breast cancer or weakness HEENT HEENT: No difficulty swallowing, eye injury, eye surgery, swollen glands or hoarseness Endo Endocrine: Yes thyroid disease; No diabetes mellitus, thyroid cancer, Hair loss, heat intolerance or cold intolerance Skin Skin: No rash or changing moles Breast Breast: No left breast lump, right breast lump, nipple discharge, breast pain, abnormal mammogram, abnormal US or breast enlargement Musc Musculoskeletal: No back problems, arthritis, rheumatoid arthritis, gout or joint pain Cardio Cardiovascular: Yes high blood pressure; No murmur, pacemaker, heart disease, atrial fibrillation, heart attack, heart stent, palpitations, shortness of breat with exertion or chest pain Psych Psychiatric: No depression, anxiety or hearing voices Resp Respiratory: No shortness of breath, No sleep apnea, No cough, No COPD, No asthma, No emphysema and No wheezing Gastro Gastrointestinal: No abdominal pain, No nausea or vomiting, No diarrhea, No constipation, No blood in stool, Yes acid reflux, No hemorrhoids, No ulcers, No gallbladder problem and No black,tarry stools Guille Hematologic: Yes blood thinners, No blood disorders, No bleeding, No anemia and No blood clots Additional Details: Xarelto, Plavix, ASA 81mg Neuro Neurologic: No system reviewed and no additional complaints, except as documented, No as per HPI, No abnormal gait, No abnormal hearing, No abnormal movements, No abnormal speech, No behavioral changes, No burning sensations, No confusion, No convulsions, No disequilibrium, No dizziness, No localized weakness, No frequent falls, No headache(s), No lack of coordination, No loss of vision, No memory loss, No numbness, No other visual disturbances, No radicular pain, No restless legs, No sensory deficit, No syncope, No tingling, No tremor(s), No weakness and No other Exam Const General: cooperative, healthy appearing, comfortable and no acute distress [facility] Head: normal to inspection Neck Neck: normal visual inspection Resp Effort & Inspection: normal respiratory effort Cardio Rate: regular rate GI Inspection: non-distended Palpation: soft and nontender Skin General: no rashes or lesions noted Neuro General: patient oriented x3 Psych Appearance: grossly normal COVID (Procedure Consent) Procedure Criteria Procedure Criteria: Yes Elective The surgeon/proceduralist and patient have discussed in detail the risk of exposure to and/or potential harm posed by the COVID-19 virus with having a surgery/procedure at this time versus the risk of? delaying the surgery/procedure. It is not possible to know either the risk of delaying the surgery or procedure or chance of getting an infection with perfect accuracy, but a joint decision was made between the patient and the surgeon/proceduralist ?to proceed at this time with the scheduled surgery/procedure as indicated on the consent form. Assessment and Plan Assessment and Plan (1) Anemia: ?Status:?Acute Plan Discussed with Dr. Acuna's office okay for patient to come off Xarelto for 3 days.? Patient will stay on his aspirin and Plavix I have discussed the above with the patient. I have offered the patient EGD and colonoscopy for evaluation. I have explained the risks/benefits of the procedure and described the procedure.? I have discussed the risks with the patient, including but not limited to:? infection, bleeding, perforation of the GI tract requiring emergency surgery, inability to complete the procedure, injury to any internal organs, complications of anesthesia, etc. - the patient understands and agrees to proceed. I have answered all the patient's questions to the patient's satisfaction and the patient has no further questions. The patient has been given instructions for the colon cleansing preparation.? 1 day of clears, MiraLAX Dulcolax split prep. Addie Barnard M.D. Pager: [phone] [facility] [address] [place] [address] [place], [place] [id number] Office: [phone] Coding Level of Care Code Off vis,new,level 3 Diagnoses Anemia? D64.9 02/05/22 1259 <Electronically signed by Addie Barnard MD> Date [facility]
--- NOTE | 2022-02-07 09:45 | COLBX_PTH ---
PATIENT: DAVID CASTANON LOC: [facility] U#:[id number] AGE/SX: 76/M ROOM: RE02/07/[address]: Dr. Addie Barnard MD : 1945 BED: DIS: 02/07/2022 SPEC #: [id number] RECD: 02/07/22 10:54 STATUS: ZAKIA RIVAS #: [id number] JUAN RAMON: 02/07/22 09:[address]: Addie Barnard DEPT: SURGICAL PATHOLOGY RECD BY: Abel Mobley ENTERED: 02/07/22 11:25 SP TYPE: COLON BX OTHR DR: Dr. Sreedhar Gilman MD Tissues: A - Ascending colon B - Sigmoid colon biopsy C - Rectum, NOS Procedures: Surgery Specimen Level IV HEADER OPERATION: [place]oscopy with polypectomy, [place] [place] DIAGNOSIS: Anemia TISSUE SUBMITTED: A ? Ascending colon polyp, B ? Sigmoid colon polyp, C ? Rectum polyp MICROSCOPIC DIAGNOSIS A. Ascending colon polyp, polypectomy: Tubular adenoma. B. Sigmoid colon polyp, polypectomy: Tubular adenoma. C. Rectal polyp, polypectomy: Hyperplastic polyp. GABRIELA:anjel 02/08/2022 MICROSCOPIC DESCRIPTION Slides are reviewed. GROSS DESCRIPTION A - Received in fixative is one container labeled with the patient's name and designated ascending colon polyp. The specimen consists of one irregular fragment of light staples soft tissue that measures 0.5 x 0.3 x 0.1 cm. The specimen is totally submitted in one cassette. B - Received in fixative is one container labeled with the patient's name and designated sigmoid colon polyp. The specimen consists of a pink-red polyp measuring 0.9 x 0.9 x 0.6 cm. The apparent base is inked. The polyp is bisected and submitted entirely in one cassette. C - Received in fixative is one container labeled with the patient's name and designated rectum polyp. The specimen consists of one irregular fragment of light stapels soft tissue that measures 0.3 x 0.3 x 0.1 cm. The specimen is totally submitted in one cassette. / GABRIELA:anjel 02/07/2022 TC:1 CPT: 99762 x3
--- NOTE | 2022-02-07 10:40 | OP.EGD_ITS ---
Patient Name: Yunior Foley Procedure Date: 02/07/2022 9:44 AM Date of : 1945 Age: 76 Procedure: Upper GI endoscopy Indications: Iron deficiency anemia Providers: Addie Barnard MD Medicines: Monitored Anesthesia Care Patient Profile: This is a 76 year old male. Complications: No immediate complications. Procedure: Pre-Anesthesia Assessment: - Prior to the procedure, a History and Physical was performed, and patient medications and allergies were reviewed. The patient's tolerance of previous anesthesia was also reviewed. The risks and benefits of the procedure and the sedation options and risks were discussed with the patient. All questions were answered, and informed consent was obtained. Prior Anticoagulants: The patient has taken Continued aspirin Plavix, held Xarelto. ASA Grade Assessment: Per anesthesia. After reviewing the risks and benefits, the patient was deemed in satisfactory condition to undergo the procedure. After obtaining informed consent, the endoscope was passed under direct vision. Throughout the procedure, the patient's blood pressure, pulse, and oxygen saturations were monitored continuously. The colonoscope was introduced through the mouth, and advanced to the duodenal bulb. The upper GI endoscopy was accomplished without difficulty. The patient tolerated the procedure well. Scope In: 10:00:16 AM Scope Out: 10:04:32 AM Total Procedure Duration Time 0 hours 4 minutes 16 seconds Findings: The Z-line was regular and was found 40 cm from the incisors. The cardia and gastric fundus were normal on retroflexion. There is noted to be a stricture at the pylorus which it would not allow the pediatric colonoscope to pass, was able to visualize the duodenal bulb well which was normal. The duodenal bulb was normal. Impression: - Z-line regular, 40 cm from the incisors. - Normal duodenal bulb. - No specimens collected. - Gastric stenosis was found at the pylorus. Recommendation: - Discharge patient to home. - Resume previous diet. - Continue present medications. - Resume Xarelto (rivaroxaban) at prior dose tomorrow. 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 All rights reserved. The codes documented in this report are preliminary and upon flight service specialist review may be revised to meet current compliance requirements. MD Addie Gonzalez MD 02/07/2022 10:39:47 AM This report has been signed electronically. Number of Addenda: 0 Note Initiated On: 02/07/2022 9:44 AM
--- NOTE | 2022-02-07 10:41 | OP.CCLET_ITS ---
02/07/2022 Sreedhar Gilman MD [address] [id number] Re : Upper GI endoscopy procedure for Yunior Foley Dear Dr. Gilman This procedure was performed on Monday, February 07, 2022. My impressions and recommendations are as follows: Impressions : - Z-line regular, 40 cm from the incisors. - Normal duodenal bulb. - No specimens collected. - Gastric stenosis was found at the pylorus. Recommendations : - Discharge patient to home. - Resume previous diet. - Continue present medications. - Resume Xarelto (rivaroxaban) at prior dose tomorrow. My findings are described in the full procedure note, which is enclosed. If I can be of further assistance, please feel free to contact me at Doctor phone number(s): , Work: . Sincerely, MD Addie Gonzalez MD 02/07/2022 10:39:47 AM This report has been signed electronically.
--- NOTE | 2022-02-07 10:51 | OP.COLON_ITS ---
Patient Name: Yunior Foley Procedure Date: 02/07/2022 10:05 AM Date of : 1945 Age: 76 Procedure: Colonoscopy Indications: Iron deficiency anemia Providers: Addie Barnard MD Medicines: Monitored Anesthesia Care Patient Profile: This is a 76 year old male. Last Colonoscopy: none. The patient's first colonoscopy is today. Complications: No immediate complications. Procedure: Pre-Anesthesia Assessment: - Prior to the procedure, a History and Physical was performed, and patient medications and allergies were reviewed. The patient's tolerance of previous anesthesia was also reviewed. The risks and benefits of the procedure and the sedation options and risks were discussed with the patient. All questions were answered, and informed consent was obtained. Prior Anticoagulants: The patient has taken Continued aspirin Plavix, held Xarelto. ASA Grade Assessment: Per anesthesia. After reviewing the risks and benefits, the patient was deemed in satisfactory condition to undergo the procedure. After I obtained informed consent, the scope was passed under direct vision. Throughout the procedure, the patient's blood pressure, pulse, and oxygen saturations were monitored continuously. The colonoscope was introduced through the anus and advanced to the cecum, identified by the appendiceal orifice, ileocecal valve and palpation. The colonoscopy was performed without difficulty. The patient tolerated the procedure well. The quality of the bowel preparation was good. Scope In: 10:06:01 AM Scope Withdrawal Time 0 hours 18 minutes 53 seconds Scope Out: 10:32:30 AM Total Procedure Duration Time 0 hours 26 minutes 29 seconds Findings: Hemorrhoids were found on perianal exam. Internal hemorrhoids were found. The hemorrhoids were Grade I (internal hemorrhoids that do not prolapse). Three sessile and semi-pedunculated polyps were found in the rectum, sigmoid colon and ascending colon. The polyps were 3 to 8 mm in size. These were biopsied with a hot snare for histology. Multiple small-mouthed diverticula were found in the sigmoid colon. Impression: - Hemorrhoids found on perianal exam. - Internal hemorrhoids. - Three 3 to 8 mm polyps in the rectum, in the sigmoid colon and in the ascending colon. Biopsied. - Diverticulosis in the sigmoid colon. Recommendation: - Discharge patient to home. - Resume previous diet. - Continue present medications. - Resume Xarelto (rivaroxaban) at prior dose tomorrow. - Repeat colonoscopy in 3 - 5 years for surveillance based on pathology results. Procedure Code(s): --- Professional --- 35243, Colonoscopy, flexible; with removal of tumor(s), polyp(s), or other lesion(s) by snare technique Diagnosis Code(s): --- Professional --- K64.0, First degree hemorrhoids K62.1, Rectal polyp D12.5, Benign neoplasm of sigmoid colon D12.2, Benign neoplasm of ascending colon D50.9, Iron deficiency anemia, unspecified K57.30, Diverticulosis of large intestine without perforation or abscess without bleeding CPT copyright 2017 [employer]. All rights reserved. The codes documented in this report are preliminary and upon him coder review may be revised to meet current compliance requirements. MD Addie Gonzalez MD 02/07/2022 10:51:12 AM This report has been signed electronically. Number of Addenda: 0 Note Initiated On: 02/07/2022 10:05 AM
--- NOTE | 2022-02-07 10:51 | OP.CCLET_ITS ---
02/07/2022 Sreedahr Gilman MD [address] [place] [address] Re : Colonoscopy procedure for Yunior Foley Dear Dr. Gilman This procedure was performed on Monday, February 07, 2022. My impressions and recommendations are as follows: Impressions : - Hemorrhoids found on perianal exam. - Internal hemorrhoids. - Three 3 to 8 mm polyps in the rectum, in the sigmoid colon and in the ascending colon. Biopsied. - Diverticulosis in the sigmoid colon. Recommendations : - Discharge patient to home. - Resume previous diet. - Continue present medications. - Resume Xarelto (rivaroxaban) at prior dose tomorrow. - Repeat colonoscopy in 3 - 5 years for surveillance based on pathology results. My findings are described in the full procedure note, which is enclosed. If I can be of further assistance, please feel free to contact me at Doctor phone number(s): , Work: . Sincerely, MD Addie Gonzalez MD 02/07/2022 10:51:12 AM This report has been signed electronically.
== END 2022-02-07 11:34 | disposition home or self-care (01) ==
LOC: EN 08:19 → AC 08:21
PROVIDERS: PCP Family Medicine; Referring Provider Family Medicine; Visit Provider Surgery
PROC: 0DJD8ZZ Inspection of Lower Intestinal Tract, Via Natural or Artificial Opening Endoscopic (ICD-10-PCS; CPT 45378; principal; 2022-02-07 09:40)
DX: D12.2 Benign neoplasm of ascending colon (principal); I73.9 Peripheral vascular disease, unspecified; K57.30 Diverticulosis of large intestine without perforation or abscess without bleeding; D12.5 Benign neoplasm of sigmoid colon; K62.1 Rectal polyp; Z87.891 Personal history of nicotine dependence; K21.9 Gastro-esophageal reflux disease without esophagitis; E78.00 Pure hypercholesterolemia, unspecified; I10 Essential (primary) hypertension; E07.9 Disorder of thyroid, unspecified; Z79.899 Other long term (current) drug therapy; Z79.82 Long term (current) use of aspirin; Z79.02 Long term (current) use of antithrombotics/antiplatelets; D50.9 Iron deficiency anemia, unspecified; Z95.828 Presence of other vascular implants and grafts; K31.1 Adult hypertrophic pyloric stenosis; K64.0 First degree hemorrhoids
CPT/HCPCS: 43235; 45385; 88305; J7120; J2405

== ENCOUNTER → 2022-03-23 | Outpatient (CLI) | payer MEDICARE, BC, SELFPAY ==
[2022-03-23 17:19] LABS: Absolute Lymphocyte Count 1.65 X10^3/uL (0.83-4.51); Absolute Neutrophil Count 4.1 X10^3/uL (2.0-7.7); Basophil# 0.05 X10^3/uL; Basophil% 0.8 % (0-1); Eosinophil# 0.27 X10^3/uL; Eosinophils% 4.1 % (0-5); Hematocrit 36.8 % (40-54); Hemoglobin 11.4 g/dL (13.0-16.5); Lymphocyte # 1.65 X10^3/ul (0.83-4.51); Mean Corpuscular Hgb 28.6 pg (27.0-32.0); Mean Corpuscular Volume 92.5 fL (80-94); Mean Platelet Vol. 11.5 fl (6.2-12.0); Monocyte# 0.49 X10^3/uL; Monocyte% 7.4 % (0-10); NRBC Flagged by Analyzer 0 % (0-5); Neutrophil # 4.11 X10^3/uL (2.7-7.7); Neutrophil % 62.4 % (47-70); Platelet Count 235 K/mm3 (150-450); RBC Distribution Width CV 19.1 % (11.6-14.6); RBC Distribution Width SD 64.3 fl (35.1-43.9); Red Blood Count 3.98 M/mm3 (4.6-6.2); White Blood Count 6.6 K/mm3 (4.4-11.0)
[2022-03-23 17:45] LABS: Anion Gap 7 (5-15); BUN 25 mg/dL (7-18); BUN/Creat Ratio 16.6 RATIO (10-20); Calcium,Total 9.2 mg/dL (8.5-10.1); Chloride 108 mmol/L (98-107); Creatinine, Serum 1.51 mg/dL (0.70-1.30); EST Glomerular Filtration Rate 48 mL/min (>60); Est Glom Filt Rate - Afr Amer 58 mL/min (>60); Free T3 2.9 pg/mL (2.18-3.98); Glucose 93 mg/dL (74-106); Potassium 4.3 mmol/L (3.5-5.1); Sodium Level 142 mmol/L (136-145); Thyroid Stim Hormone (TSH) 0.62 uIU/mL (0.358-3.74)
== END | disposition home or self-care (01) ==
LOC: MFPLAB 14:14
PROVIDERS: PCP Family Medicine; Referring Provider Family Medicine; Visit Provider Family Medicine
DX: D64.9 Anemia, unspecified (principal); E03.9 Hypothyroidism, unspecified; N19 Unspecified kidney failure
CPT/HCPCS: 36415; 80048; 84439; 84443; 84481; 85025

== ENCOUNTER → 2022-04-23 | Outpatient (CLI) | payer MEDICARE, BC, SELFPAY ==
[2022-04-23 15:45] LABS: Hematocrit 37.5 % (40-54); Mean Corpuscular Hgb 29.6 pg (27.0-32.0); Mean Corpuscular Volume 92.6 fL (80-94); Mean Platelet Vol. 11.3 fl (6.2-12.0); Platelet Count 202 K/mm3 (150-450); RBC Distribution Width CV 15.8 % (11.6-14.6); RBC Distribution Width SD 52.2 fl (35.1-43.9); Red Blood Count 4.05 M/mm3 (4.6-6.2); White Blood Count 8.2 K/mm3 (4.4-11.0)
[2022-04-23 16:38] LABS: Anion Gap 4 (5-15); BUN 20 mg/dL (7-18); BUN/Creat Ratio 13.5 RATIO (10-20); Calcium,Total 9.2 mg/dL (8.5-10.1); Chloride 107 mmol/L (98-107); Creatinine, Serum 1.48 mg/dL (0.70-1.30); EST Glomerular Filtration Rate 49 mL/min (>60); Est Glom Filt Rate - Afr Amer 59 mL/min (>60); Glucose 85 mg/dL (74-106); Potassium 4.1 mmol/L (3.5-5.1); Sodium Level 140 mmol/L (136-145)
== END | disposition home or self-care (01) ==
LOC: LAB 14:29
PROVIDERS: PCP Family Medicine; Visit Provider Urology
DX: Z01.812 Encounter for preprocedural laboratory examination (principal)
CPT/HCPCS: 36415; 80048; 85027

== ENCOUNTER → 2022-05-11 | Outpatient (CLI) | payer MEDICARE, BC, SELFPAY ==
[2022-05-11 14:12] LABS: Bacteria 0 SEEN /hpf (None Seen); Mucous, Urine 0 SEEN /hpf (<or=2+); Red Blood Cells-Urine 0 SEEN /hpf (0-5)
[2022-05-11 16:22] LABS: ALB/GLOB Ratio 0.8 RATIO (0.9-2.4); AST(SGOT) 26 U/L (15-37); Alanine Aminotransfer ALT/SGPT 25 U/L (16-61); Albumin, Serum 3.4 g/dL (3.2-5.0); Alkaline Phosphatase 72 U/L (45-117); Anion Gap 4 (5-15); BUN 17 mg/dL (7-18); BUN/Creat Ratio 11.6 RATIO (10-20); Chloride 104 mmol/L (98-107); Creatinine, Serum 1.47 mg/dL (0.70-1.30); EST Glomerular Filtration Rate 50 mL/min (>60); Est Glom Filt Rate - Afr Amer 60 mL/min (>60); Globulin 4.1 g/dL (2.2-4.2); Glucose 102 mg/dL (74-106); Potassium 4.1 mmol/L (3.5-5.1); Protein, Total 7.5 g/dL (6.4-8.2); Sodium Level 136 mmol/L (136-145)
[2022-05-11 16:58] LABS: Color, Urine Yellow (Yellow); Glucose, Dipstick Normal (Normal); Ketone-Dipstick Negative (Negative); Leukocyte Esterase-Dipstick 25 /ul (Negative); Nitrite-Dipstick Negative (Negative); Occult Blood-Urine Negative /ul (Negative); Protein-Dipstick 30 mg/dl (Negative); Urine Bilirubin Dipstick Negative (Negative); Urine Clarity Clear (Clear); Urine Urobilinogen Normal (Normal)
[2022-05-11 17:02] LABS: Hyaline Cast 0-5 SEEN /lpf (0-5); Squamous Epithelial Cells - UA 0-5 SEEN /hpf (0-5); White Blood Cells 0-5 SEEN /hpf (0-5)
== END | disposition home or self-care (01) ==
LOC: LAB 13:53
PROVIDERS: PCP Family Medicine; Visit Provider Internal Medicine Nephrology
DX: N18.4 Chronic kidney disease, stage 4 (severe) (principal)
CPT/HCPCS: 36415; 80053; 81001

== ENCOUNTER 2022-06-12 13:43 | Outpatient (CLI) | payer MEDICARE, BC, SELFPAY ==
--- NOTE | 2022-06-12 13:46 | ADU_ITS ---
Reason For Study: S/P Bypass Graft Right Velocities Left Velocities Ext. Iliac Artery, dist = 99.5 cm./sec. Ext Iliac Artery, dist = 151.0 cm./sec. Common Femoral Artery, mid = 160.8 cm./sec. Common Femoral Artery, mid = 135.4 cm./sec. No flow demonstrated in SFA No flow demonstrated in SFA Proximal Graft Anastomosis - 275.6 cm/s Proximal Graft Anastomosis - 353.2 cm/s Proximal Graft - 36.9 cm/s Prox Graft - 53.1 cm/s Mid Graft - 40.3 cm/s Mid Graft- 60.7 cm/s Dist Graft - 46.4 Dist Graft - 46.4 cm/s Dist Graft Anastomosis - 125.7. Dist Graft Anastomosis - 55.2 cm/s. Profunda Femoral Artery = 236.8 cm./sec. Profunda Femoral Artery = 130.2 cm./sec. Popliteal Artery, mid = 123.5 cm./sec. Popliteal Artery, mid = 68.4 cm./sec. Post. Tibial Artery, prox = 26.7 cm./sec. Popliteal Artery, distal = 141.0 cm./sec. Post. Tibial Artery, mid = 21.8 cm./sec. Post. Tibial Artery, prox = 55.0 cm./sec. Post. Tibial Artery, dist = 46.5 cm./sec. Post Tibial Artery, mid = 82.4 cm./sec. Peroneal Artery, prox = 31.0 cm./sec. Post Tibial Artery, dist. = 127.9 cm./sec. Peroneal Artery, mid = 29.9 cm./sec. Peroneal Artery, prox = Unable to visualize. Peroneal Artery,dist = 49.1 cm./sec. Peroneal Artery, mid = 77.7 cm./sec. Ant. Tibial Artery, prox = 43.0 cm./sec. Peroneal Artery,dist. = 39.0 cm./sec. Ant. Tibial Artery, mid = 40.3 cm./sec. Ant.Tibial Artery, prox = 69.2 cm./sec. Ant. Tibial Artery, dist = 37.7 cm./sec. Ant Tibial Artery, mid = 64.2 cm./sec. Ant. Tibial Artery, distal = 65.4 cm./sec. Procedure The exam was diagnostic. Exam performed in department. VL/US Art Duplex Bilat Lower Ext Interpretation Summary Bilateral femoral occlussions. Bilateral proximal bypass graft stenosis. Right more monophasic in tibials and left maintains triphasic flow. Ordering Physician: Malcolm Acuna Referring Physician: Sreedhar Gilman Performed By: Ron Figueroa RVT
--- NOTE | 2022-06-12 13:46 | ART_ITS ---
Reason For Study: S/P Bypass Graft Procedure A bilateral lower extremity continuous wave Doppler with analog waveform analysis and ankle brachial indexes. Left Segmental Pressures Left brachial= 155mmHg. Left posterior tibial artery = 154mmHg. Left dorsalis pedis artery = 140mmHg. The left posterior tibial artery waveforms are triphasic. The left dorsalis pedis waveforms are biphasic. Right Segmental Pressures Right brachial= 152mmHg. Right posterior tibial artery = 99mmHg. Right dorsalis pedis artery = 103mmHg. The right posterior tibial artery waveforms are monophasic. The right dorsalis pedis waveforms are monophasic. Indices The right ankle brachial index by the posterior tibial artery is 0.64. The right ankle brachial index by the dorsalis pedis is 0.66. The left ankle brachial index by the posterior tibial artery is 0.99. The left ankle brachial index by the dorsalis pedis is 0.90. 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 Left normal at rest with JUS 0 .99. Ordering Physician: Malcolm Acuna Referring Physician: Sreedhar Gilman Performed By: Ron Figueroa RVT
== END 2022-06-12 23:59 | disposition home or self-care (01) ==
LOC: CVS 13:44
PROVIDERS: PCP Family Medicine; Referring Provider Surgery Vascular Surgery; Visit Provider Surgery Vascular Surgery
DX: M79.89 Other specified soft tissue disorders (principal); I70.213 Atherosclerosis of native arteries of extremities with intermittent claudication, bilateral legs; I77.1 Stricture of artery; M79.604 Pain in right leg
CPT/HCPCS: 93922; 93925

== ENCOUNTER 2022-06-15 16:02 | Outpatient (CLI) | payer MEDICARE, BC, SELFPAY ==
--- NOTE | 2022-06-15 | BLA_PTH ---
PATIENT: DAVID CASTANON LOC: [facility] U#:[id number] AGE/SX: 77/M ROOM: RE06/15/[address]: Dr. Chris Verdugo MD : 1945 BED: DIS: 06/15/2022 SPEC #: [id number] RECD: 06/15/22 15:01 STATUS: ZAKIA RIVAS #: [id number] JUAN RAMON: 06/15/22 00:[address]: Chris Verdugo DEPT: SURGICAL PATHOLOGY RECD BY: Mark Koo ENTERED: 06/18/22 09:58 SP TYPE: BLADDER BX OTHR DR: Dr. Sreedhar Gilman MD [facility] Tissues: Urinary bladder, NOS Procedures: Surgery Specimen Level IV HEADER OPERATION: Cystoscopy with bladder biopsy with fulguration PRE-OP DIAGNOSIS: Benign prostatic hyperplasia with lower urinary tract, malignant neoplasm of lateral wall of bladder TISSUE SUBMITTED: Bladder tissue from dome of bladder MICROSCOPIC DIAGNOSIS Dome of urinary bladder, biopsy: Chronic inflammation. AM:anjel 06/19/2022 COMMENT No urothelium is present in the biopsy. Clinical correlation is suggested. MICROSCOPIC DESCRIPTION Slides are reviewed. GROSS DESCRIPTION Received in fixative is one container labeled with the patient's name and designated bladder tissue dome of bladder. The specimen consists of two irregular fragments of staples soft tissue that in aggregate measure 0.3 x 0.1 x 0.1 cm. The specimen is totally submitted in one cassette. / SJ:anjel 06/18/2022 TC:3 CPT: 49475
== END 2022-06-15 23:59 | disposition home or self-care (01) ==
PROVIDERS: PCP Family Medicine; Visit Provider Urology
DX: N40.1 Benign prostatic hyperplasia with lower urinary tract symptoms (principal); C67.2 Malignant neoplasm of lateral wall of bladder
CPT/HCPCS: 88305

== ENCOUNTER 2022-06-30 19:26 | Emergency (ER) | payer MEDICARE, BC, SELFPAY ==
[2022-06-30 19:27] VITALS: BP 170/76; PULSE 61; RESP 18; TEMP 36.3; O2SAT 96; BMI 27.1
[2022-06-30] MEDS: Mixture 30 ML Bottle TOPICAL (21:56)
[2022-06-30] MEDS: TRANEXAMIC ACID 1,000 MG/10 ML ML OPERA.SITE (22:29)
--- NOTE | 2022-06-30 22:47 | EDS_ITS ---
HPI History of Present Illness Chief Complaint: Nosebleed Informant: patient Narrative Narrative: 77-year-old male presenting with nosebleed. States this started several hours ago. He is on Xarelto. He states he has had bleeding from the right side of his nose intermittently over the past several hours. Denies trauma. Prior similar symptoms: Yes Recent Illness/Hospitalization: No PFSH PFSH Medical History Anemia Bladder disease Cancer Chest pain Former smoker Gastric reflux High cholesterol History of edema History of hiatal hernia History of pain when walking Hypertension Loss of consciousness Syncope Thyroid disease Tinnitus Wears dentures Wears glasses Home Medications L.acidophilus-B.animalis-B.longum 15 billion cell capsule (Florajen Digestion) 1 cap PO DAILY IMMUNE HEALTH 02/13/21 [History Last Taken 01/09/22] aspirin 81 mg tablet,delayed release (Adult Aspirin Regimen) 81 mg PO QHS HEALTH 02/13/21 [History Last Taken 02/06/22] latanoprost 0.005 % eye drops 1 drp ophthalmic (eye) QHS GLUCOMA 02/13/21 [His tory Last Taken 01/09/22] lisinopril 10 mg tablet 10 mg PO QHS BP 02/13/21 [History Last Taken 01/09/22] uyiiaypunybf-rixbjxdu-pdssst tablet 0.5 tab PO BID SUPPLEMENT 02/13/21 [History Last Taken 01/09/22] omega-3 fatty acids 1,000 mg capsule (Fish Oil Concentrate) 1,200 mg PO DAILY SUPPLEMENT 02/13/21 [History Last Taken 01/09/22] pantoprazole 40 mg tablet,delayed release (Protonix) 40 mg PO 1530 GERD 02/13/21 [History Last Taken 01/09/22] simvastatin 40 mg tablet 40 mg PO QHS CHOLESTEROL 02/13/21 [History Last Taken 01/09/22] levothyroxine 88 mcg tablet 100 mcg PO DAILY THYROID 05/10/21 [History Last Taken 02/07/22] clopidogrel 75 mg tablet (Plavix) 75 mg PO DAILY BLOOD THINNER 08/23/21 [History Last Taken 02/06/22] gabapentin 600 mg tablet 300 mg PO TID NERVE PAIN 08/23/21 [History Last Taken 02/07/22] oxycodone-acetaminophen 5 mg-325 mg tablet 1 tab PO Q8H PRN Pain 08/23/21 [History Last Taken 01/09/22] rivaroxaban 2.5 mg tablet 2.5 mg PO BID BLOOD THINNER 08/23/21 [History Last Ta beatriz 02/04/22] brimonidine 0.2 % eye drops 1 drp RIGHT EYE BID GLUCOMA 09/30/21 [History Last Taken 01/10/22] coQ10 (ubiquinol) 100 mg capsule 100 mg PO DAILY SUPPLEMENT 01/10/22 [History Last Taken 01/09/22] ferrous gluconate 324 mg (38 mg iron) tablet 324 mg PO BID #60 tabs 01/10/22 [Rx Last Taken Unknown] Allergy/AdvReac Type Severity Reaction Status Date / Time Iodinated Contrast Media Allergy Hives Verified 02/07/22 08:41 Family History Mother Cancer Surgical History H/O arterial bypass of lower limb History of angioplasty of peripheral vessel History of evacuation of hematoma History of transurethral destruction of bladder lesion Hx of angioplasty Hx of decompressive lumbar laminectomy Social History household members: spouse housing: house Smoking Status: Former smoker alcohol intake: never what type of physical activity do you participate in: none do you feel safe at home: Yes ROS ROS ED Constitutional Constitutional ED: Denies fever(s) Eyes Eyes: Denies change in vision ENT ENT ED: Reports other Details: nosebleed ; Denies rhinorrhea or sore throat Cardiovascular Cardiovascular: Denies chest pain or palpitations Respiratory/Chest Respiratory/Chest: Denies cough or dyspnea Gastrointestinal Gastrointestinal: Denies abdominal pain, diarrhea, nausea or vomiting Genitourinary Genitourinary ED: Denies dysuria Musculoskeletal Musculoskeletal: Denies myalgias Integumentary Denies rash Neurologic Neurologic: Denies headache(s) Psychiatric Psychiatric: Denies suicidal thoughts EXAM Physical Exam Const Vital Signs: 06/30/22 19:27 06/30/22 19:27 Temperature 97.3 F L 97.3 F L Temperature Source Temporal Temporal Pulse Rate 61 61 Respiratory Rate 18 18 Blood Pressure 170/76 H 170/76 H Blood Pressure Mean 107 107 Pulse Ox 96 96 Oxygen Delivery Method Room Air Room Air Positive well nourished and well developed General Appearance ED: well developed HEENT Reports normocephalic and head/scalp atraumatic HEENT Narrative: mild bleeding right nare. Posterior pharynx is normal Eyes PERRL and EOMs intact bilaterally Neck supple General: Negative for tenderness Chest Wall inspection of chest normal Resp normal respiratory effort and clear to auscultation bilaterally Cardio regular rate and regular rhythm GI non-tender and non-distended Palpation: soft; Negative for guarding or rebound tenderness present no CVA tenderness Extremity normal to inspection Neuro oriented x3 Sensorium / Orientation: alert Psych mental status grossly normal MDM MDM MDM Narrative Medical decision making narrative: Direct pressure was applied and bleeding stopped. Alvaro mix soaked cotton ball was placed in right nare. On reevaluation, there was no active bleeding. Rhino Rocket soaked in TXA was placed into the right nare. Patient will follow-up with ENT. Prior to discharge patient began having burning in right eye. Concern for possible small amt of alvaro mix in eye. Eye was flushed and he had resolution of symptoms.Advised signs and symptoms for which to return to the ED. Discharge Plan Triage Chief Complaint: Nosebleed ED Provider: Gris Cuellar Dx/Rx/DC Orders Clinical Impression: Epistaxis Instructions: Nosebleed Prescriptions: No Action pantoprazole [Protonix] 40 mg tablet,delayed release (DR/EC) 40 mg PO 1530 simvastatin 40 mg tablet 40 mg PO QHS Label Comments: take 1 tablet by mouth once daily lisinopril 10 mg tablet 10 mg PO QHS Label Comments: take 1 tablet by mouth once daily latanoprost 0.005 % drops 1 drp ophthalmic (eye) QHS Rx Instructions: B/L eyes aspirin [Adult Aspirin Regimen] 81 mg tablet,delayed release (DR/EC) 81 mg PO QHS Hold Instructions: Resume on 10/06/21. aolncpmybhpz-ygzhmpuq-xcagng Tablet 0.5 tab PO BID omega-3 fatty acids [Fish Oil Concentrate] 1,000 mg capsule 1,200 mg PO DAILY Florajen Digestion 15 billion cell capsule 1 cap PO DAILY gabapentin 600 mg tablet 300 mg PO TID rivaroxaban 2.5 mg tablet 2.5 mg PO BID Hold Instructions: Resume on 10/06/21. oxycodone-acetaminophen 5-325 mg tablet 1 tab PO Q8H PRN (Reason: Pain) Label Comments: take 1 tablet by mouth up to three times a day NEEDED FOR PAIN clopidogrel [Plavix] 75 mg tablet 75 mg PO DAILY Hold Instructions: Resume on 10/06/21. Rx Instructions: takes at 1400 levothyroxine 88 mcg tablet 100 mcg PO DAILY Label Comments: take 1 tablet by mouth once daily brimonidine 0.2 % drops 1 drp RIGHT EYE BID Label Comments: instill 1 drop into right eye twice a day Rx Instructions: takes 1200 and 1900 coQ10 (ubiquinol) 100 mg Capsule 100 mg PO DAILY ferrous gluconate 324 mg (38 mg iron) tablet 324 mg PO BID Qty: 60 0RF Primary Care Provider: Sreedhar Gilman Referrals: Steven Claros MD [Med Staff - Active Staff] - Sreedhar Gilman MD [Primary Care Provider] - Disposition Disposition: Home, Self Care
== END 2022-06-30 23:34 | disposition home or self-care (01) ==
PROVIDERS: Emergency Provider Emergency Medicine; PCP Family Medicine; Visit Provider Emergency Medicine
DX: R04.0 Epistaxis (principal); I10 Essential (primary) hypertension; E78.00 Pure hypercholesterolemia, unspecified; Z87.891 Personal history of nicotine dependence
CPT/HCPCS: 30901; 99281; 99282; A4216

== ENCOUNTER → 2022-07-23 | Outpatient (CLI) | payer MEDICARE, BC, SELFPAY ==
[2022-07-23 17:55] LABS: Absolute Lymphocyte Count 1.81 X10^3/uL (0.83-4.51); Absolute Neutrophil Count 4.6 X10^3/uL (2.0-7.7); Basophil# 0.05 X10^3/uL; Basophil% 0.7 % (0-1); Eosinophil# 0.27 X10^3/uL; Eosinophils% 3.7 % (0-5); Hematocrit 38.3 % (40-54); Hemoglobin 12.1 g/dL (13.0-16.5); Lymphocyte # 1.81 X10^3/ul (0.83-4.51); Lymphocyte % 24.5 % (19-41); Mean Corp Hgb Conc 31.6 g/dL (32-36); Mean Corpuscular Volume 98.2 fL (80-94); Mean Platelet Vol. 11.7 fl (6.2-12.0); Monocyte# 0.67 X10^3/uL; Monocyte% 9.1 % (0-10); NRBC Flagged by Analyzer 0 % (0-5); Neutrophil # 4.57 X10^3/uL (2.7-7.7); Neutrophil % 61.7 % (47-70); Platelet Count 222 K/mm3 (150-450); RBC Distribution Width CV 14.6 % (11.6-14.6); RBC Distribution Width SD 52.6 fl (35.1-43.9); White Blood Count 7.4 K/mm3 (4.4-11.0)
[2022-07-23 18:30] LABS: AST(SGOT) 14 U/L (15-37); Alanine Aminotransfer ALT/SGPT 14 U/L (16-61); Albumin, Serum 3.6 g/dL (3.2-5.0); Alkaline Phosphatase 63 U/L (45-117); Anion Gap 9 (5-15); BUN 18 mg/dL (7-18); BUN/Creat Ratio 13.3 RATIO (10-20); Calcium,Total 9.1 mg/dL (8.5-10.1); Chloride 105 mmol/L (98-107); Creatinine, Serum 1.35 mg/dL (0.70-1.30); EST Glomerular Filtration Rate 55 mL/min (>60); Est Glom Filt Rate - Afr Amer 66 mL/min (>60); Globulin 3.6 g/dL (2.2-4.2); Glucose 82 mg/dL (74-106); Potassium 4.5 mmol/L (3.5-5.1); Protein, Total 7.2 g/dL (6.4-8.2); Sodium Level 141 mmol/L (136-145); T4 Free Direct 1.84 ng/dL (0.76-1.46); Thyroid Stim Hormone (TSH) 0.42 uIU/mL (0.358-3.74)
== END | disposition home or self-care (01) ==
LOC: MFPLAB 14:09
PROVIDERS: PCP Family Medicine; Visit Provider Family Medicine
DX: E03.9 Hypothyroidism, unspecified (principal); R53.83 Other fatigue
CPT/HCPCS: 36415; 80053; 84439; 84443; 84481; 85025

== ENCOUNTER → 2022-09-20 | Outpatient (CLI) | payer MEDICARE, BC, SELFPAY ==
--- NOTE | 2022-09-20 12:45 | ADU_ITS ---
Reason For Study: HX BPG Right Velocities Left Velocities Ext. Iliac Artery, dist = 203.3 cm./sec. Ext Iliac Artery, dist = 170.0 cm./sec. Common Femoral Artery, mid = 250.2 cm./sec. Common Femoral Artery, mid = 149.1 cm./sec. No flow demonstrated in SFA No flow demonstrated in SFA Proximal Graft Anastomosis - 277.1 cm/s Proximal Graft Anastomosis - 359.2 cm/s Proximal Graft - 59.1 cm/s Prox Graft - 70.2 cm/s Mid Graft - 171.0 cm/s Mid Graft- 63.6 cm/s Dist Graft - 36.2 Dist Graft - 51.5 cm/s Dist Graft Anastomosis - 213.0. Dist Graft Anastomosis - 64.7 cm/s. Profunda Femoral Artery = 309.9 cm./sec. Profunda Femoral Artery = 118.3 cm./sec. Popliteal Artery, mid = 50.2 cm./sec. Popliteal Artery, mid = 118.5 cm./sec. Post. Tibial Artery, prox = 17.1 cm./sec. Post. Tibial Artery, prox = 111.2 cm./sec. Post. Tibial Artery, mid = 34.6 cm./sec. Post Tibial Artery, mid = 113.1 cm./sec. Post. Tibial Artery, dist = 40.1 cm./sec. Post Tibial Artery, dist. = 102.1 cm./sec. Peroneal Artery, prox = 34.6 cm./sec. Peroneal Artery, prox = 49.1 cm./sec. Peroneal Artery, mid = 63.9 cm./sec. Peroneal Artery, mid = 69.2 cm./sec. Peroneal Artery,dist = 23.2 cm./sec. Peroneal Artery,dist. = 34.5 cm./sec. Ant. Tibial Artery, prox = 40.2 cm./sec. Ant.Tibial Artery, prox = 72.9 cm./sec. Ant. Tibial Artery, mid = 23.2 cm./sec. Ant Tibial Artery, mid = 82.0 cm./sec. Ant. Tibial Artery, dist = 38.4 cm./sec. Ant. Tibial Artery, distal = 131.3 cm./sec. VL/US Art Duplex Bilat Lower Ext Interpretation Summary Bilateral femoral occluded. Bilateral bypass graft patent but stenosis noted in right proximal and distal. Ordering Physician: Malcolm Acuna Performed By: Ron Figueroa RVT
--- NOTE | 2022-09-20 12:45 | ART_ITS ---
Reason For Study: HX BPG Procedure A bilateral lower extremity continuous wave Doppler with analog waveform analysis and ankle brachial indexes. Left Segmental Pressures Left brachial= 159mmHg. Left posterior tibial artery = 162mmHg. Left dorsalis pedis artery = 145mmHg. The left posterior tibial artery waveforms are triphasic. The left dorsalis pedis waveforms are triphasic. Right Segmental Pressures Right brachial= 148mmHg. Right posterior tibial artery = 109mmHg. Right dorsalis pedis artery = 98mmHg. The right posterior tibial artery waveforms are biphasic. The right dorsalis pedis waveforms are monophasic. Indices The right ankle brachial index by the posterior tibial artery is 0.69. The right ankle brachial index by the dorsalis pedis is 0.62. The left ankle brachial index by the posterior tibial artery is 1.02. The left ankle brachial index by the dorsalis pedis is 0.91. VL/Ankle Brachial Index Interpretation Summary Right biphasic and JUS 0.69. Left normal at rest with triphasic flow and JUS 1. 02. Ordering Physician: Malcolm Acuna Referring Physician: Sreedhar Gilman Performed By: Ron Figueroa RVT
== END | disposition home or self-care (01) ==
LOC: CVS 12:41
PROVIDERS: PCP Family Medicine; Visit Provider Surgery Vascular Surgery
DX: I70.213 Atherosclerosis of native arteries of extremities with intermittent claudication, bilateral legs (principal); I77.1 Stricture of artery; Z48.812 Encounter for surgical aftercare following surgery on the circulatory system
CPT/HCPCS: 93922; 93925

== ENCOUNTER → 2022-10-16 | Outpatient (CLI) | payer MEDICARE, BC, SELFPAY ==
[2022-10-16 18:55] LABS: T4 Free Direct 1.67 ng/dL (0.76-1.46); Thyroid Stim Hormone (TSH) 0.33 uIU/mL (0.358-3.74)
== END | disposition home or self-care (01) ==
LOC: MFPLAB 15:04
PROVIDERS: Family Medicine; PCP Family Medicine; Referring Provider Family Medicine; Visit Provider Family Medicine
DX: E03.9 Hypothyroidism, unspecified (principal)
CPT/HCPCS: 36415; 84439; 84443; 84481

== ENCOUNTER → 2022-11-05 | Outpatient (CLI) | payer MEDICARE, BC, SELFPAY ==
[2022-11-05 16:47] LABS: Hematocrit 41.1 % (40-54); Hemoglobin 13.3 g/dL (13.0-16.5); Mean Corp Hgb Conc 32.4 g/dL (32-36); Mean Corpuscular Hgb 31.2 pg (27.0-32.0); Mean Corpuscular Volume 96.5 fL (80-94); Mean Platelet Vol. 11.9 fl (6.2-12.0); Platelet Count 178 K/mm3 (150-450); RBC Distribution Width CV 13.2 % (11.6-14.6); RBC Distribution Width SD 47.1 fl (35.1-43.9); Red Blood Count 4.26 M/mm3 (4.6-6.2); White Blood Count 7.2 K/mm3 (4.4-11.0)
[2022-11-05 16:57] LABS: Protein, Urine (Random) 29.4 mg/dL (<11.9); Protein:Creat Ratio 99 mg/g CRE (0-200)
[2022-11-05 17:25] LABS: Vitamin D,25 Hydroxy 62.3 ng/mL
[2022-11-05 17:27] LABS: Albumin, Serum 3.6 g/dL (3.2-5.0); BUN 16 mg/dL (7-18); BUN/Creat Ratio 10.2 RATIO (10-20); Calcium,Total 9.1 mg/dL (8.5-10.1); Chloride 107 mmol/L (98-107); Creatinine, Serum 1.57 mg/dL (0.70-1.30); EST Glomerular Filtration Rate 46 mL/min (>60); Est Glom Filt Rate - Afr Amer 55 mL/min (>60); Glucose 101 mg/dL (74-106); Phosphorus 2.9 mg/dL (2.5-4.9); Potassium 4.1 mmol/L (3.5-5.1); Sodium Level 138 mmol/L (136-145); Thyroid Stim Hormone (TSH) 1.26 uIU/mL (0.358-3.74)
[2022-11-06 08:10] LABS: PTHIN 35.5 pg/mL (18.4-80.1)
== END | disposition home or self-care (01) ==
LOC: LAB 15:34
PROVIDERS: PCP Family Medicine; Referring Provider Internal Medicine Nephrology; Visit Provider Internal Medicine Nephrology
DX: E03.9 Hypothyroidism, unspecified (principal); N18.4 Chronic kidney disease, stage 4 (severe)
CPT/HCPCS: 36415; 80069; 82306; 82570; 83970; 84156; 84443; 85027

== ENCOUNTER → 2023-01-16 | Outpatient (CLI) | payer MEDICARE, BC, SELFPAY ==
[2023-01-16 18:17] LABS: Thyroid Stim Hormone (TSH) 4.06 uIU/mL (0.358-3.74)
== END | disposition home or self-care (01) ==
LOC: MFPLAB 14:18
PROVIDERS: PCP Family Medicine; Visit Provider Family Medicine
DX: E03.9 Hypothyroidism, unspecified (principal)
CPT/HCPCS: 36415; 84443

== ENCOUNTER → 2023-03-05 | Outpatient (CLI) | payer MEDICARE, BC, SELFPAY ==
--- NOTE | 2023-03-05 13:40 | ADUL_ITS ---
Reason For Study: stricture of artery Right Velocities Ext. Iliac Artery, dist = 167.4 cm./sec. Common Femoral Artery, mid = 185.0 cm./sec. No flow demonstrated in SFA Proximal Graft Anastomosis - 116.7 cm/s Proximal Graft - 102.1 cm/s Mid Graft - 31.1 cm/s Dist Graft - 33.0 cm/s Dist Graft Anastomosis -30.1 cm/s. Profunda Femoral Artery = 252.2 cm./sec. Popliteal Artery, mid = 52.7 cm./sec. Ant. Tibial Artery, prox = 29.6 cm./sec. Ant. Tibial Artery, mid = 23.0 cm./sec. Ant. Tibial Artery, dist = 37.3 cm./sec. Post. Tibial Artery, prox = 74.8 cm./sec. Post. Tibial Artery, mid = 116.1 cm./sec. Post. Tibial Artery, dist = 54.7 cm./sec. Peroneal Artery, prox = 19.7 cm./sec. Peroneal Artery, mid = 16.4 cm./sec. Peroneal Artery,dist = 34.0 cm./sec. Procedure The exam was diagnostic. /US Art Duplex Unilat Lower Ext Interpretation Summary Patent right BPG and no stenosis. Ordering Physician: Malcolm Acuna Referring Physician: Malcolm Acuna Performed By: Min Giordano RVT
--- NOTE | 2023-03-05 13:40 | ART_ITS ---
Reason For Study: stricture of artery Procedure A bilateral lower extremity continuous wave Doppler with analog waveform analysis and ankle brachial indexes. Left Segmental Pressures Left brachial= 141mmHg. Left posterior tibial artery = 145mmHg. Left dorsalis pedis artery = 135mmHg. The left dorsalis pedis waveforms are triphasic. The left posterior tibial artery waveforms are triphasic. Right Segmental Pressures Right brachial= 148mmHg. Right posterior tibial artery = 113mmHg. Right dorsalis pedis artery = 94mmHg. The right dorsalis pedis waveforms are biphasic. The right posterior tibial artery waveforms are monophasic. Indices The right ankle brachial index by the posterior tibial artery is .76. The right ankle brachial index by the dorsalis pedis is .64. The left ankle brachial index by the posterior tibial artery is .98. The left ankle brachial index by the dorsalis pedis is .91. VL/Ankle Brachial Index Interpretation Summary Right mild occlussive disease with JUS 0.76 and left normal at 0.98. Ordering Physician: Malcolm Acuna Performed By: Min Giordano RVT
== END | disposition home or self-care (01) ==
LOC: CVS 13:38
PROVIDERS: PCP Family Medicine; Referring Provider Surgery Vascular Surgery; Visit Provider Surgery Vascular Surgery
DX: M79.89 Other specified soft tissue disorders (principal); I70.213 Atherosclerosis of native arteries of extremities with intermittent claudication, bilateral legs; I77.1 Stricture of artery; M79.604 Pain in right leg; I10 Essential (primary) hypertension; E78.00 Pure hypercholesterolemia, unspecified; K21.9 Gastro-esophageal reflux disease without esophagitis; E07.9 Disorder of thyroid, unspecified
CPT/HCPCS: 93922; 93926

== ENCOUNTER → 2023-03-08 | Outpatient (CLI) | payer MEDICARE, BC, SELFPAY ==
[2023-03-08 15:54] LABS: Anion Gap 4 (5-15); BUN 17 mg/dL (7-18); BUN/Creat Ratio 12.3 RATIO (10-20); Chloride 109 mmol/L (98-107); Cholesterol 169 mg/dL (200); Creatinine, Serum 1.38 mg/dL (0.70-1.30); EST Glomerular Filtration Rate 53 mL/min (>60); Est Glom Filt Rate - Afr Amer 64 mL/min (>60); Glucose 90 mg/dL (74-106); High Density Lipoprotein 37 mg/dL; Potassium 3.8 mmol/L (3.5-5.1); Sodium Level 139 mmol/L (136-145); T4 Free Direct 1.57 ng/dL (0.76-1.46); Thyroid Stim Hormone (TSH) 0.75 uIU/mL (0.358-3.74); Triglycerides 223 mg/dL; Very Low Density Lipoprotein 45 mg/dL (5-40)
== END | disposition home or self-care (01) ==
LOC: MTLAB 13:48
PROVIDERS: PCP Family Medicine; Referring Provider Family Medicine; Visit Provider Family Medicine
DX: E78.5 Hyperlipidemia, unspecified (principal); E03.9 Hypothyroidism, unspecified
CPT/HCPCS: 36415; 80048; 80061; 84439; 84443; 84481

== ENCOUNTER → 2023-05-14 | Outpatient (CLI) | payer MEDICARE, BC, SELFPAY ==
[2023-05-14 13:46] LABS: Hematocrit 39.8 % (40-54); Hemoglobin 13.1 g/dL (13.0-16.5); Mean Corp Hgb Conc 32.9 g/dL (32-36); Mean Corpuscular Hgb 31.5 pg (27.0-32.0); Mean Corpuscular Volume 95.7 fL (80-94); Mean Platelet Vol. 11.4 fl (6.2-12.0); Platelet Count 179 K/mm3 (150-450); RBC Distribution Width CV 12.8 % (11.6-14.6); RBC Distribution Width SD 44.9 fl (35.1-43.9); Red Blood Count 4.16 M/mm3 (4.6-6.2); White Blood Count 8.6 K/mm3 (4.4-11.0)
[2023-05-14 13:51] LABS: Protein, Urine (Random) 17.3 mg/dL (<11.9); Protein:Creat Ratio 178 mg/g CRE (0-200)
[2023-05-14 14:11] LABS: Albumin, Serum 3.8 g/dL (3.2-5.0); BUN 17 mg/dL (7-18); BUN/Creat Ratio 11.3 RATIO (10-20); Calcium,Total 9.1 mg/dL (8.5-10.1); Chloride 107 mmol/L (98-107); EST Glomerular Filtration Rate 48 mL/min (>60); Est Glom Filt Rate - Afr Amer 58 mL/min (>60); Glucose 89 mg/dL (74-106); Phosphorus 3.1 mg/dL (2.5-4.9); Potassium 4.1 mmol/L (3.5-5.1); Sodium Level 140 mmol/L (136-145)
[2023-05-14 14:12] LABS: PTHIN 53.2 pg/mL (18.4-80.1)
[2023-05-14 14:15] LABS: Vitamin D,25 Hydroxy 68.8 ng/mL
== END | disposition home or self-care (01) ==
LOC: LAB 13:16
PROVIDERS: PCP Family Medicine; Referring Provider Internal Medicine Nephrology; Visit Provider Internal Medicine Nephrology
DX: N18.4 Chronic kidney disease, stage 4 (severe) (principal); D64.9 Anemia, unspecified
CPT/HCPCS: 36415; 80069; 82306; 82570; 83970; 84156; 85027

== ENCOUNTER → 2023-07-01 | Outpatient (CLI) | payer MEDICARE, BC, SELFPAY ==
--- NOTE | 2023-07-01 13:44 | ADU_ITS ---
Reason For Study: Stricture of Artery Right Velocities Left Velocities Ext. Iliac Artery, dist = 177 cm./sec. Ext Iliac Artery, dist = 158 cm./sec. Common Femoral Artery, mid = 267 cm./sec. Common Femoral Artery, mid = 173 cm./sec. Proximal Graft Anastomosis: 172 cm/s Proximal Graft Anastomosis: 196 cm/s Proximal Graft: 74 cm/s Proximal Graft: 95 cm/s Mid Graft: 32 cm/s Mid Graft: 59 cm/s Dist Graft: 19 cm/s Dist Graft: 56 cm/s Dist Graft Anastomosis: 273 cm/s. Dist Graft Anastomosis: 68 cm/s. Pre Stent: 25 cm/s Profunda Femoral Artery = 45 cm./sec. Prox Stent: 26 cm/s Popliteal Artery, mid = 88 cm./sec. Mid Stent: 39 cm/s Ant.Tibial Artery, prox = 90 cm./sec. Distal Stent: 273 cm/s Ant Tibial Artery, mid = 69 cm./sec. Post Stent: 215 cm/s. Ant. Tibial Artery, distal = 53 cm./sec. Profunda Femoral Artery = 93 cm./sec. Post. Tibial Artery, prox = 69 cm./sec. Popliteal Artery, mid = 85 cm./sec. Post Tibial Artery, mid = 126 cm./sec. Ant. Tibial Artery, prox = 26 cm./sec. Post Tibial Artery, dist. = 61 cm./sec. Ant. Tibial Artery, mid = 23 cm./sec. Peroneal Artery, prox = 79 cm./sec. Ant. Tibial Artery, dist = 19 cm./sec. Peroneal Artery, mid = 78 cm./sec. Post. Tibial Artery, prox = 22 cm./sec. Peroneal Artery,dist. = 63 cm./sec. Post. Tibial Artery, mid = 68 cm./sec. Post. Tibial Artery, dist = 53 cm./sec. Peroneal Artery, prox = 19 cm./sec. Peroneal Artery, mid = 20 cm./sec. Peroneal Artery,dist = 45 cm./sec. Procedure Exam performed in department. /US Art Duplex Bilat Lower Ext Interpretation Summary Right DATABASE ADMINISTRATOR, distal graft anastamosis and distal stent with moderate to severe st enosis. Left leg patent and no stenosis. Ordering Physician: Malcolm Acuna Referring Physician: Sreedhar Gilman Performed By: Rosemary Samano RDCS, RVT
--- NOTE | 2023-07-01 13:44 | ART_ITS ---
Reason For Study: Stricture of Artery Procedure A bilateral lower extremity continuous wave Doppler with analog waveform analysis and ankle brachial indexes. Left Segmental Pressures Left brachial= 143mmHg. Left posterior tibial artery = 135mmHg. Left dorsalis pedis artery = 130mmHg. Left digit = 93 mmHg. Right Segmental Pressures Right brachial= 141mmHg. Right posterior tibial artery = 89mmHg. Right dorsalis pedis artery = 83mmHg. Right digit = 52 mmHg. Indices The right ankle brachial index by the posterior tibial artery is 0.62. The right ankle brachial index by the dorsalis pedis is 0.58. The right digital-brachial index is 0.36. The left ankle brachial index by the posterior tibial artery is 0.94. The left ankle brachial index by the dorsalis pedis is 0.91. The left digital-brachial index is 0.65. VL/Ankle Brachial Index Interpretation Summary Moderate occlusive disease at rest righ tleg with JUS 0.63 and near biphasic an d left normal at 0.94 with triphasic flow. Ordering Physician: Malcolm Acuna Referring Physician: Sreedhar Gilman Performed By: Rosemary Samano RDCS/RVT
== END | disposition home or self-care (01) ==
LOC: CVS 13:42
PROVIDERS: PCP Family Medicine; Referring Provider Surgery Vascular Surgery; Visit Provider Surgery Vascular Surgery
DX: I77.1 Stricture of artery (principal); I70.213 Atherosclerosis of native arteries of extremities with intermittent claudication, bilateral legs
CPT/HCPCS: 93922; 93925

== ENCOUNTER → 2023-07-24 | Outpatient (CLI) | payer MEDICARE, SELFPAY ==
--- OUTSIDE RECORDS SUMMARY | 2023-07-24 14:17 | XMS RPT_ITS | CCD ---
Author Name Unknown Address [address] [place] [address] Organization [facility] Care Team Providers Care Senior Quality Control Inspector Name Role Phone Hillary Vincent Unavailable Unavailable PROVIDER, UNKNOWN Unavailable Unavailable Sreedhar Dumont Unavailable Unavailable Sudimak, Russel Unavailable Unavailable PROVIDER, UNKNOWN Unavailable Unavailable Sreedhar Dumont Unavailable Unavailable PROVIDER, UNKNOWN Unavailable Unavailable Sudimak, Vincent Unavailable Unavailable Sreedhar Dumont Unavailable Unavailable Sreedhar Dumont Primary Care Provider Traci Yao Unavailable Fauser, Nyoka Gilda Unavailable SREEDHAR DUMONT Primary Care Unavailable Traci YAO Attending Unavailable FAUSER, NYOKA GILDA Referring Unavailable FAUSER, NYOKA GILDA Admitting Unavailable FAUSER, NYOKA GILDA Referring Unavailable SREEDHAR DUMONT Primary Care Unavailable FAUSER, NYOKA GILDA Attending Unavailable FAUSER, NYOKA GILDA Referring Unavailable SREEDHAR DUMONT Primary Care Unavailable FAUSER, NYOKA GILDA Attending Unavailable Sreedhar Dumont Primary Care Provider Traci Yao Unavailable Fauser, Nyoka Gilda Unavailable JULIA LEAL, DR SREEDHAR Pringle Primary Care Physician DR SREEDHAR DUMONT MD Primary Care Physician CHERELLE LEAL, VENESSA Tierney Attending Unavailable DR SREEDHAR DUMONT MD Primary Care Unavailabl e VENESSA VILLARREAL MD Admitting Unavailable Allergies Allergy Classification Reported Allergen(s) Allergy Type Date of Onset Reaction(s) Facility (6 sources) Contrast media; Translations: [RED DYE] Propensity to adverse reactions to drug (disorder) 0 [facility] Repository (2 sources) Contrast media; Translations: [iodinated radiocontrast agents] Drug allergy [facility] Medications Current Medications Medication Drug Class(es) Dates Sig (Normalized) Sig (Original) aspirin 81 mg delayed release oral tablet (13 sources) Platelet Aggregation Inhibitor, Nonsteroidal Anti-inflammatory Drug Start: 08-03-2021 aspirin 81 mg oral delayed release tablet Dose : 81 mg = 1 tab(s), Oral, Daily Start Date: 08/03/21 Status: Ordered Completed/Discontinued Medications Medication Drug Class(es) Dates Sig (Normalized) Sig (Original) acetaminophen 325 mg / oxyCODONE hydrochloride 5 mg oral tablet (1 source) Opioid Agonist Start: 12-26-2022 acetaminophen-oxyC ODONE 325 mg-5 mg oral tablet Dose = 1 tab(s), Oral, TID, PRN as needed for pain, 0 Refill(s), 92 Start Date: 12/26/22 Status: Ordered 200 actuat albuterol 0.09 mg/actuat metered dose inhaler (10 sources) beta2-Adrenergic Agonist End: 07-06-2020 take 2 puff(s) by inhalation every six hours as needed for wheezing ProAir HFA 90 mcg/actuation inhaler Inhale 2 puffs every 6 (six) hours as needed for wheezing . 0 07/06/2020 Discontinued (Discontinued by another clinician) Labetalol (2 sources) beta-Adrenergic Jinny Start: 12-27-2022 End: 12-27-2022 labetalol Start: 12/27/22 16:00:00 EDT, Dose = 5 mg, = 1 mL, IV Push, now, Stop: 12/27/22 16:00:00 EDT, 12/27/22 15:57:00 EDT Start Date: 12/27/22 Stop Date: 12/27/22 Status: Completed Problems Active Problems Problem Classification Problem Date Documented Da te Episodic/Chronic Essential hypertension (10 sources) Essential (primary) hypertension; Translations: [Hypertensive disorder] Onset: 05-13-2017 06-16-2019 Chronic Occlusion or stenosis of precerebral arteries (7 sources) Occlusion and stenosis of bilateral carotid arteries; Translations: [Bilateral carotid artery occlusion] Onset: 11-26-2017 10-15-2018 Chronic Occlusion or stenosis of precerebral arteries (8 sources) Bilateral carotid artery stenosis; Translations: [Bilateral carotid artery stenosis] Onset: 10-15-2018 10-15-2018 Peripheral and visceral atherosclerosis (20 sources) Peripheral vascular disease, unspecified; Translations: [Peripheral vascular disease] Onset: 11-26-2017 10-15-2018 Chronic Unclassified (1 source) Peripheral arterial disease 12-26-2022 Past or Other Problems Problem Classification Problem Date Documented Date Episodic/Chronic Other circulatory disease (18 sources) History of arterial bypass of lower limb artery; Translations: [History of femoropopliteal bypass] Onset: 10-15-2018 10-15-2018 Episodic Screening or history of mental health and substance abuse (2 sources) Personal history of nicotine dependence; Translations: [Personal history of nicotine dependence] Onset: 05-13-2017 Episodic Results Test Name Value Interpretation Reference Range Facil it Vital Signs Date Time Vital Sign Value Performing Clinician Facility 12-27-2022 18:15-0400 Diastolic Blood Pressure Non-Invasive 53 [address] [facility] 12-27-2022 18:15-0400 Heart rate 76 /min VENESSA VILLARREAL MD [facility] 12-27-2022 18:15-0400 Mean blood pressure 71 mm[Hg] VENESSA VILLARREAL MD [facility] 12-27-2022 18:15-0400 Systolic Blood Pressure Non-Invasive 115 [address] [facility] 12-27-2022 17:45-0400 Diastolic Blood Pressure Non-Invasive 49 [address] [facility] 12-27-2022 17:45-0400 Heart rate 64 /min VENESSA VILLARREAL MD [facility] 12-27-2022 17:45-0400 Mean blood pressure 73 mm[Hg] VENESSA VILLARREAL MD [facility] 12-27-2022 17:45-0400 Systolic Blood Pressure Non-Invasive 128 [address] [facility] 12-27-2022 17:15-0400 Diastolic Blood Pressure Non-Invasive 56 [address] [facility] 12-27-2022 17:15-0400 Heart rate 79 /min VENESSA VILLARREAL MD [facility] 12-27-2022 17:15-0400 Mean blood pressure 78 mm[Hg] VENESSA VILLARREAL MD [facility] 12-27-2022 17:15-0400 Systolic Blood Pressure Non-Invasive 132 [address] [facility] 12-27-2022 16:15-0400 Body temperature 98.06 [degF] VENESSA VILLARREAL MD [facility] 12-27-2022 16:15-0400 Reason For Taking VItal Signs VENESSA VILLARREAL MD [facility] 12-27-2022 16:15-0400 Respiratory rate 18 /min VENESSA VILLARREAL MD [facility] 12-27-2022 15:48-0400 Heart rate 80 /min VENESSA VILLARREAL MD [facility] 12-27-2022 15:39-0400 Heart rate 69 /min VENESSA VILLARREAL MD [facility] 12-27-2022 13:55-0400 Body temperature 97.7 [degF] VENESSA VILLARREAL MD [facility] 12-27-2022 13:45-0400 Respiratory rate 16 /min VENESSA VILLARREAL MD [facility] 12-27-2022 13:40-0400 Respiratory rate 16 /min VENESSA VILLARREAL MD [facility] 12-27-2022 08:20-0400 Body temperature 97.7 [degF] VENESSA VILLARREAL MD [facility] 12-27-2022 04:45-0400 Reason For Taking VItal Signs VENESSA VILLARREAL MD [facility] 12-27-2022 01:40-0400 Reason For Taking VItal Signs VENESSA VILLARREAL MD [facility] 12-26-2022 12:23-0400 Body height 182.9 cm VENESSA VILLARREAL MD [facility] 12-26-2022 12:23-0400 Body weight 92.1 kg VENESSA VILLARREAL MD [facility] 12-26-2022 12:23-0400 Body weight 27.53 kg/m2 VENESSA VILLARREAL MD [facility] 12-26-2022 11:30-0400 Blood Pressure Method VENESSA VILLARREAL MD [facility] 12-26-2022 08:30-0400 Body height 182.9 cm VENESSA VILLARREAL MD [facility] 12-26-2022 08:30-0400 Body weight 92.1 kg VENESSA VILLARREAL MD [facility] 12-26-2022 08:30-0400 Heart rate 71 /min VENESSA VILLARREAL MD [facility] 08-04-2021 18:00-0500 Heart rate 73 /min VENESSA VILLARREAL MD [facility] 08-04-2021 18:00-0500 Reason For Taking VItal Signs VENESSA VILLARREAL MD [facility] 08-04-2021 17:30-0500 Diastolic Blood Pressure NBP 63 [address] [facility] 08-04-2021 17:30-0500 Heart rate 65 /min VENESSA VILLARREAL MD [facility] 08-04-2021 17:30-0500 Mean blood pressure 79 mm[Hg] VENESSA VILLARREAL MD [facility] 08-04-2021 17:30-0500 Reason For Taking VItal Signs VENESSA VILLARREAL MD [facility] 08-04-2021 17:30-0500 Systolic Blood Pressure NBP 121 [address] [facility] 08-04-2021 17:00-0500 Heart rate 75 /min VENESSA VILLARREAL MD [facility] 08-04-2021 17:00-0500 Reason For Taking VItal Signs VENESSA VILLARREAL MD [facility] 08-04-2021 16:30-0500 Diastolic Blood Pressure NBP 66 [address] [facility] 08-04-2021 16:30-0500 Mean blood pressure 80 mm[Hg] VENESSA VILLARREAL MD [facility] 08-04-2021 16:30-0500 Systolic Blood Pressure NBP 110 [address] [facility] 08-04-2021 16:15-0500 Diastolic Blood Pressure NBP 55 [address] [facility] 08-04-2021 16:15-0500 Mean blood pressure 74 mm[Hg] VENESSA VILLARREAL MD [facility] 08-04-2021 16:15-0500 Systolic Blood Pressure NBP 123 [address] [facility] 08-04-2021 15:15-0500 Body temperature 98.6 [degF] VENESSA VILLARREAL MD [facility] 08-04-2021 15:15-0500 Respiratory rate 20 /min VENESSA VILLARREAL MD [facility] 08-04-2021 13:15-0500 Body temperature 97.88 [degF] VENESSA VILLARREAL MD [facility] 08-04-2021 12:54-0500 Diastolic blood pressure 76 mm[Hg] VENESSA VILLARREAL MD [facility] 08-04-2021 12:54-0500 Mean blood pressure 98 mm[Hg] VENESSA VILLARREAL MD [facility] 08-04-2021 12:54-0500 Respiratory rate 18 /min VENESSA VILLARREAL MD [facility] 08-04-2021 12:54-0500 Systolic blood pressure 142 mm[Hg] VENESSA VILLARREAL MD [facility] 08-04-2021 12:50-0500 Diastolic blood pressure 77 mm[Hg] VENESSA VILLARREAL MD [facility] 08-04-2021 12:50-0500 Mean blood pressure 102 mm[Hg] VENESSA VILLARREAL MD [facility] 08-04-2021 12:50-0500 Respiratory rate 18 /min VENESSA VILLARREAL MD [facility] 08-04-2021 12:50-0500 Systolic blood pressure 151 mm[Hg] VENESSA VILLARREAL MD [facility] 08-04-2021 12:45-0500 Diastolic blood pressure 68 mm[Hg] VENESSA VILLARREAL MD [facility] 08-04-2021 12:45-0500 Mean blood pressure 86 mm[Hg] VENESSA VILLARREAL MD [facility] 08-04-2021 12:45-0500 Systolic blood pressure 121 mm[Hg] VENESSA VILLARREAL MD [facility] 08-04-2021 08:30-0500 Body temperature 97.88 [degF] VENESSA VILLARREAL MD [facility] 08-03-2021 13:13-0500 Body temperature 97.88 [degF] VENESSA VILLARREAL MD [facility] 08-03-2021 12:03-0500 Body temperature 97.88 [degF] VENESSA VILLARREAL MD [facility] 08-03-2021 08:08-0500 Body height 182.9 cm VENESSA VILLARREAL MD [facility] 08-03-2021 08:08-0500 Body temperature 96.8 [degF] VENESSA VILLARREAL MD [facility] 08-03-2021 08:08-0500 Body weight 93.7 kg VENESSA VILLARREAL MD [facility] 08-03-2021 08:08-0500 Body weight 28.01 kg/m2 VENESSA VILLARREAL MD [facility] 08-03-2021 08:08-0500 diastolic 64 mm[Hg] VENESSA VILLARREAL MD [facility] 08-03-2021 08:08-0500 Heart rate 78 /min VENESSA VILLARREAL MD [facility] 08-03-2021 08:08-0500 systolic 153 mm[Hg] VENESSA VILLARREAL MD [facility] 07-06-2020 12:41-0500 BP Diastolic 80 mm[Hg] [facility] 07-06-2020 12:41-0500 BP Systolic 155 mm[Hg] [facility] 07-06-2020 12:29-0500 Pulse (Heart Rate) 73 /min [facility] 07-06-2020 12:28-0500 BMI (Body Mass Index) 26.23 kg/m2 [facility] 07-06-2020 12:28-0500 Body weight 87.73 kg [facility] 07-06-2020 12:28-0500 Height 182.9 cm [facility] 07-06-2020 12:28-0500 Respiratory Rate 16 /min [facility] 06-16-2019 11:20-0500 BP Diastolic 75 mm[Hg] Clare Garcia [facility] 06-16-2019 11:20-0500 BP Systolic 156 mm[Hg] [facility] 06-16-2019 11:14-0500 BMI (Body Mass Index) 27.12 kg/m2 [facility] 06-16-2019 11:14-0500 Body weight 90.72 kg [facility] 06-16-2019 11:14-0500 Height 182.9 cm [facility] 06-16-2019 11:14-0500 Pulse (Heart Rate) 54 /min [facility] 10-15-2018 13:29-0400 BP Diastolic 76 mm[Hg] [facility] 10-15-2018 13:29-0400 BP Systolic 157 mm[Hg] [facility] 10-15-2018 13:22-0400 BMI (Body Mass Index) 26.85 kg/m2 [facility] 10-15-2018 13:22-0400 Height 182.9 cm [facility] 10-15-2018 13:22-0400 Pulse (Heart Rate) 56 /min [facility] 10-15-2018 13:22-0400 Pulse Oximetry 99 % [facility] 10-15-2018 13:22-0400 Weight 89.81 kg [facility] Encounters Encounter Date Encounter Type Care Provider Facility Start: 12-26-2022 End: 12-27-2022 Evaluation and management of inpatient VENESSA VILLARREAL MD Facility:A Start: 12-26-2022 End: 12-27-2022 Evaluation and management of inpatient VENESSA VILLARREAL MD [facility] Start: 08-03-2021 End: 08-04-2021 Evaluation and management of inpatient VENESSA VILLARREAL MD [facility] Start: 08-20-2020 End: 08-20-2020 Orders Only Sana Nolasco Work Phone: [facility] Start: 07-06-2020 End: 07-07-2020 Patient encounter procedure SREEDHAR DUMONT [facility] Start: 07-06-2020 End: 07-06-2020 Office outpatient visit 15 minutes Clare Garcia Work Phone: [facility] Procedures Date Procedure Procedure Detail Performing Clinician Start: 07-06-2020 Non-invas physiologi c std extremity art 2 level Nyoka Gilda Fauser Work Phone: Start: 07-06-2020 Duplex scan of lower limb arteries Clare Gilda Fauser Work Phone: Start: 12-03-2018 Duplex scan of lower limb arteries Traci Yao Work Phone: Start: 12-03-2018 Carotid artery doppl er assessment Traci Yao Work Phone: Start: 12-03-2018 Non-invas physiologi c std extremity art 2 level Traci Yao Work Phone: Biopsy of bladder VENESSA RAO MD Decompression of spi nal cord VENESSA VILLARREAL MD Plan of Treatment Date Care Activity Detail Author Start: 05-07-2029 Tetanus vaccination Tetanus: Every 10yrs [facility] Start: 07-10-2021 End: 07-10-2021 Appointment [facility] Start: 06-20-2020 End: 06-20-2020 Appointment [facility] Start: 03-15-2020 Influenza vaccination given Sequential Influenza Vaccine (#1) [facility] Start: 03-15-2019 Influenza vaccination given [facility] Start: 12-03-2018 End: 12-03-2018 Appointment 12/03/2018 Appointment Cardiology Traci Yao III, DO [address] [place] [address] [phone] [facility] Start: 03-15-2018 Influenza vaccination given SEQUENTIAL INFLUENZA VACCINE (#1) [facility] Start: 2011 Fall risk assessment Steadi Fall Risk Assessment [facility] Start: 2011 Pneumococcal vaccination PNEUMOCOCCAL VACCINE AGE 65+ (1 of 2 - PCV13) [facility] Start: 2011 US scan of abdominal aorta ABDOMINAL AORTIC ULTRASOUND [facility] Start: 02-29-1996 Administration of herpes zoster vaccine ZOSTER VACCINES (1 of 2) [facility] Start: 02-29-1996 Screening for malignant neoplasm of colon [facility] Start: 02-29-1964 Hepatitis C antibody, confirmatory test Hepatitis C Screening [facility] Start: 1962 COVID-19 Vaccine (1 of 2) COVID-19 Vaccine (1 of 2) [facility] Start: 1958 Adolescent depression screening assessment Depression Screening (PHQ9) [facility] Start: 1949 History and physical examination, annual for health maintenance Wellness Visit [facility] Start: 1946 Fall risk assessment Falls Risk Assessment [facility] Start: 1946 Hepatitis C antibody, confirmatory test HEPATITIS C SCREENING [facility] Start: 1946 Prostate specific antigen measurement PSA Level [facility] Start: 1946 Screening for malignant neoplasm of colon Colorectal Cancer Screening: Colonoscopy [facility] Start: 1946 Screening for malignant neoplasm of lung Low-dose CT Lung Cancer Screen [facility] Start: 1946 Tetanus vaccination TETANUS EVERY 10 YR [facility] Start: 1946 US scan of abdominal aorta Abdominal Aortic Ultrasound [facility] End: 12-16-2019 Carotid artery doppler assessment Carotid Duplex Routine Bilateral carotid artery stenosis 1 Occurrences starting 10/15/2018 until 12/16/2019 [facility] Immunizations Immunization Date Immunization Notes Care Provider Fa [facility] 05-07-2019 tetanus toxoid, redu medardo diphtheria toxoid, and acellular pertussis vaccine, adsorbed VENESSA VILLARREAL MD [facility] 05-17-2015 influenza virus vaccine, unspecified formulation VENESSA VILLARREAL MD [facility] Payers Date Payer Category Payer Unknown LISANDRAMENDOZA EFREN OUT OF STATE [facility] xxxxxxxxxxxx 2016-Present xxxxxxxxxxxx [id number] 2016 Unknown [id number] 2016 Unknown [employer] OUT OF STATE [facility] [id number] 2016-Present [id number] 2011 Medicare MEDICARE MEDICAR E PART A & B xxxxxxxxxxx 2011-Present [place] xxxxxxxxxxx [id number] 2011 Medicare [id number] 2011 Medicare MEDICARE MEDICAR E PART A & [place] [id number] 2011-Present [place] [id number] 1946 Unknown [id number] 1946 Unknown [id number] 1946 Unknown [id number] 1946 Unknown [id number] Medicare Social History Date Type Detail Facility Start: 10-15-2018 End: 08-02-2021 Tobacco smoking status NHIS Former smoker [facility] Start: 10-15-2018 History SDOH Alcohol Frequency 1 [facility] Sex Assigned At Not on file [facility] Start: 06-16-2019 End: 07-06-2020 Alcohol intake Lifetime non-drinker (finding) [facility] End: 07-15-2016 History of tobacco use Current smoker [facility] Start: 07-06-2020 Cigarettes smoked current (pack per day) - Reported [facility] Start: 07-06-2020 Tobacco use and exposure Never used [facility] Exposure to SARS-CoV -2 (event) Not sure [facility] Sex Assigned At Male [facility] Functional Status Date Assessment Result Facility 12-27-2022 Functional Status Room check performed [facility] 12-27-2022 Functional Status Lives with spouse radha [facility] 12-27-2022 Functional Status [facility] 12-27-2022 Functional Status [facility] 12-27-2022 Functional Status Maintained, ice chips and sips taken [facility] 12-27-2022 Functional Status [facility] 12-26-2022 Functional Status Sensory Deficits None A [facility] 12-26-2022 Functional Status [facility] Mental Status Date Assessment Result [facility] 12-27-2022 Mental Status Oriented x 4 [facility] 12-27-2022 Mental Status [facility] 12-27-2022 Mental Status [facility] 12-27-2022 Mental Status [facility] Hospital Discharge instructions 12-27-2022 Note Date & Type Note Facility 12-27-2022 Hospital Discharg e instructions Patient Education 12/27/2022 18:37:41 Angiogram Angiogram An angiogram is a procedure used to examine the blood vessels. In this procedure, contrast dye is injected through a long, thin tube (catheter) into an artery. X-rays are then taken, which show if there is a blockage or problem in a blood vessel. The catheter may be inserted in: Your groin area. This is the most common. The fold of your arm, near your elbow. Your wrist. Tell a health care provider about: Any allergies you have, including allergies to shellfish or contrast dye. All medicines you are taking, including vitamins, herbs, eye drops, creams, and [id number] medicines. Any problems you or family members have had with anesthetic medicines. Any blood disorders you have. Any surgeries you have had. Any previous kidney problems or failure you have had. Any medical conditions you have. Whether you are or may be . Whether you are . What are the risks? Generally, this is a safe procedure. However, problems may occur, including: Infection or bruising at the catheter area. Damage to other structures or organs, including rupture of blood vessels or damage to arteries. Allergic reaction to the contrast dye used. Kidney damage from the contrast dye used. Blood clots that can lead to a stroke or heart attack. What happens before the procedure? Staying hydrated Follow instructions from your health care provider about hydration, which may include: Up to 2 hours before the procedure you may continue to drink clear liquids, such as water, clear fruit juice, black coffee, and plain tea. Eating and drinking restrictions Follow instructions from your health care provider about eating and drinking, which may include: 8 hours before the procedure stop eating heavy meals or foods such as meat, fried foods, or fatty foods. 6 hours before the procedure stop eating light meals or foods, such as toast or cereal. 6 hours before the procedure stop drinking milk or drinks that contain milk. 2 hours before the procedure stop drinking clear liquids. General instructions Ask your health care provider about: ?Changing or stopping your normal medicines. This is important if you take diabetes medicines or blood thinners. ?Taking medicines such as aspirin and ibuprofen. These medicines can thin your blood. Do not take these medicines before your procedure if your doctor tells you not to. You may have blood samples taken. Plan to have someone take you home from the hospital or clinic. If you will be going home right after the procedure, plan to have someone with you for 24 hours. What happens during the procedure? To reduce your risk of infection: ?Your health care team will wash or sanitize their hands. ?Your skin will be washed with soap. ?Hair may be removed from the insertion area. You will lie on your back on an X-ray table. You may be strapped to the table if it is tilted. An IV tube will be inserted into one of your veins. Electrodes may be placed on your chest to monitor your heart rate during the procedure. You will be given one or more of the following: ?A medicine to help you relax (sedative). ?A medicine to numb the area where the catheter will be inserted (local anesthetic). The catheter will be inserted into an artery using a guide wire. A type of X-ray (fluoroscopy) will be used to help guide the catheter to the blood vessel to be examined. A contrast dye will then be injected into the catheter, and X-rays will be taken. The contrast will help to show where any narrowing or blockages are located in the blood vessels. You may feel flushed as the contrast dye is injected. After the X-ray is complete, the catheter will be removed. A bandage (dressing) will be placed over the site where the catheter was inserted. Pressure will be applied to help stop any bleeding. The procedure may vary among health care providers and hospitals. What happens after the procedure? Your blood pressure, heart rate, breathing rate, and blood oxygen level will be monitored until the medicines you were given have worn off. You will be kept in bed lying flat for several hours. If the catheter was inserted through your leg, you will be instructed not to bend or cross your legs. The insertion area and the pulse in your feet or wrist will be checked frequently. You will be instructed to drink plenty of fluids. This will help wash the contrast dye out of your body. Additional blood tests and X-rays may be done. Tests to check the electrical activity in your heart (electrocardiogram) may be done. Do not drive for 24 hours if you received a sedative. It is up to you to get the results of your procedure. Ask your health care provider, or the department that is doing the procedure, when your results will be ready. Summary An angiogram is a procedure used to examine the blood vessels. In this procedure, contrast dye is injected through a long, thin tube (catheter) into an artery. X-rays are then taken. Before the procedure, follow your health care provider's instructions about eating and drinking restrictions. You may be asked to stop eating and drinking several hours before the procedure. After the procedure, you will need to lie flat for several hours and drink plenty of fluids. This information is not intended to replace advice given to you by your health care provider. Make sure you discuss any questions you have with your health care provider. Document Released: 04/10/2006 Document Revised: 06/13/2018 Document Reviewed: 08/07/2017 [employer] Patient Education 2020 [employer] Follow Up Care 12/25/2022 10:52:27 With:VENESSA VILLARREAL MD, [facility], Surgery, Vascular Surgeons Address: [facility] [address] [place] [id number] When:1-[address] [facility] Clinical Note 12-27-2022 Note Date & Type Note Facility 12-27-2022 Note Discharge Instructions Thank you for allowing [facility] to assist you with your healthcare needs. The following is important discharge information regarding your hospital visit. Your Care Team SREEDHAR DUMONT MD Your Diagnosis PAD (peripheral artery disease) What to do next Follow Up Appointments Follow Up with VENESSA VILLARREAL MD, [facility], Surgery, Vascular Surgeons When Within 1-2 days Where: [facility] [address] [facility] [address] [place] [address] The Following Activity and Diet Have Been Ordered for You Discharge Activity - Ordered -- Lifting Restricted less than 10 pounds, Keep left arm straight and on arm board for 24 hours. Do not bend for 24 hours. Do not lift more than 10 pounds for 1 week., 12/27/22 13:59:00 EDT Discharge Diet - Ordered -- Follow the post-operative/post-procedure diet instructions provided by your physician's office., 12/27/22 13:59:00 EDT The Following Equipment Has Been Ordered for You Discharge Home Equipment Discharge Wound Care - Ordered -- Follow the post-operative/post-procedure wound care instructions provided by your physician's office., 12/27/22 13:59:00 EDT The Following Treatments Have Been Ordered for You Discharge Labs No qualifying data available. Discharge Radiology No qualifying data available. Other Therapies No qualifying data available. Post Acute Orders No qualifying data available. Someone Will Contact You Regarding These Home Health Referrals No home referrals have been ordered for you. No one will call you. Allergies Contrast dye Medications Please ask your primary doctor or pharmacist before taking any other medication not listed, including over the counter drugs, herbal medications, vitamins and or supplements as they may interact with your home medications. What How Much When Instructions Last Dose Unchanged acetaminophen-oxyCODONE (acetaminophen-oxyCODONE 325 mg-5 mg oral tablet) 1 tab(s) by mouth Three (3) times a day as needed for as needed for pain Unchanged aspirin (aspirin 81 mg oral delayed release tablet) 1 tab(s) by mouth Every day Unchanged brimonidine ophthalmic (brimonidine 0.2% ophthalmic solution) 1 Drops Right eye Two (2) times a day Unchanged docusate (docusate sodium 100 mg oral capsule) 1 cap by mouth Two (2) times a day as needed for for constipation Unchanged ferrous gluconate (ferrous gluconate 324 mg (38 mg elemental iron) oral tablet) 1 tab(s) by mouth Two (2) times a day Unchanged lactobacillus acidophilus (Florajen Acidophilus oral capsule) 1 cap by mouth Once a day Unchanged latanoprost ophthalmic (latanoprost 0.005% ophthalmic emulsion) 1 Drops Both eyes Daily at bedtime Unchanged levothyroxine (levothyroxine 75 mcg (0.075 mg) oral tablet) 1 tab(s) by mouth Once a day before a meal Unchanged Misc Medication (Neuropathy cream) As needed for Control symptoms Unchanged Misc Medication (Dimple Well Fiber) 1 tab(s) by mouth Once a day Unchanged multivitamin with minerals (Centrum Silver oral tablet) 1 tab(s) by mouth Once a day Unchanged omega-3 polyunsaturated fatty acids (Fish Oil 1000 mg oral capsule) 1 cap by mouth Two (2) times a day Unchanged pantoprazole (pantoprazole 40 mg oral enteric coated tablet) 1 tab(s) by mouth Once a day before a meal Unchanged rivaroxaban (Xarelto 2.5 mg oral tablet) 1 tab(s) by mouth Two (2) times a day Unchanged simvastatin (simvastatin 40 mg oral tablet) 1 tab(s) by mouth Daily at bedtime Unchanged ubiquinone (CoQ10 100 mg oral capsule) 1 cap by mouth Once a day Please take this list to your next doctor s visit. Bring all medications you take, including over the counter medications, herbals and other supplements with you to your doctor s visit. Patients and families are reminded to discard old lists and to update any records with all medication providers or retail pharmacies. Medication Leaflets clopidogrel (kloe PID oh grel) Plavix What is the most important information I should know about clopidogrel? You should not use this medicine if you have any active bleeding such as a stomach ulcer or bleeding in the brain. Clopidogrel increases your risk of bleeding, which can be severe or life-threatening. Call your doctor or seek emergency medical attention if you have bleeding that will not stop, if you have blood in your urine, black or bloody stools, or if you cough up blood or vomit that looks like coffee grounds. Do not stop taking clopidogrel without first talking to your doctor, even if you have signs of bleeding. Stopping clopidogrel may increase your risk of a heart attack or stroke. What is clopidogrel? Clopidogrel is used to lower your risk of having a stroke, blood clot, or serious heart problem after you've had a heart attack, severe chest pain (angina), or circulation problems. Clopidogrel may also be used for purposes not listed in this medication guide. What should I discuss with my healthcare provider before taking clopidogrel? You should not use clopidogrel if you are allergic to it, or if you have: any active bleeding; or a stomach ulcer or bleeding in the brain (such as from a head injury). Tell your doctor if you have ever had: an ulcer in your stomach or intestines; or a bleeding disorder or blood clotting disorder. Clopidogrel may not work as well if you have certain genetic factors that affect the breakdown of this medicine in your body. Your doctor may perform a blood test to make sure clopidogrel is right for you. This medicine is not expected to harm an unborn baby. However, taking clopidogrel within 1 week before childbirth can cause bleeding in the mother. Tell your doctor if you are or plan to become . You should not breastfeed while using this medicine. How should I take clopidogrel? Follow all directions on your prescription label and read all medication guides or instruction sheets. Use these medicines exactly as directed. Clopidogrel can be taken with or without food. Clopidogrel is sometimes taken together with aspirin. Take aspirin only if your doctor tells you to. Clopidogrel keeps your blood from coagulating (clotting) and can make it easier for you to bleed, even from a minor injury. Contact your doctor or seek emergency medical attention if you have any bleeding that will not stop. You may need to stop using clopidogrel for a short time before a surgery, medical procedure, or dental work. Any healthcare provider who treats you should know that you are taking clopidogrel. Do not stop taking clopidogrel without first talking to your doctor, even if you have signs of bleeding. Stopping the medicine could increase your risk of a heart attack or stroke. Store at room temperature away from moisture and heat. What happens if I miss a dose? Take the medicine as soon as you can, but skip the missed dose if it is almost time for your next dose. Do not take two doses at one time. What happens if I overdose? Seek emergency medical attention or call the Poison Help line at . Overdose can cause excessive bleeding. What should I avoid while taking clopidogrel? Avoid alcohol. It can increase your risk of stomach bleeding. Avoid activities that may increase your risk of bleeding or injury. Use extra care to prevent bleeding while shaving or brushing your teeth. If you also take aspirin: Ask a doctor or pharmacist before using medicines for pain, fever, swelling, or cold/flu symptoms. They may contain ingredients similar to aspirin (such as salicylates, ibuprofen, ketoprofen, or naproxen). Taking these products together can increase your risk of bleeding. What are the possible side effects of clopidogrel? Get emergency medical help if you have signs of an allergic reaction: hives; difficult breathing; swelling of your face, lips, tongue, or throat. Clopidogrel increases your risk of bleeding, which can be severe or life-threatening. Call your doctor or seek emergency medical attention if you have bleeding that will not stop, if you have blood in your urine, black or bloody stools, or if you cough up blood or vomit that looks like coffee grounds. Also call your doctor at once if you have: nosebleeds, pale skin, easy bruising, purple spots under your skin or in your mouth; jaundice (yellowing of your skin or eyes); fast heartbeats, shortness of breath; headache, fever, weakness, feeling tired; little or no urination; a seizure; low blood sugar--headache, hunger, sweating, irritability, dizziness, fast heart rate, and feeling anxious or shaky; or signs of a blood clot--sudden numbness or weakness, confusion, problems with vision or speech. Common side effects may include: bleeding. This is not a complete list of side effects and others may occur. Call your doctor for medical advice about side effects. You may report side effects to FDA at 6-263-GMD-8007. What other drugs will affect clopidogrel? Sometimes it is not safe to use certain medications at the same time. Some drugs can affect your blood levels of other drugs you take, which may increase side effects or make the medications less effective. Tell your doctor about all your other medicines, especially: a stomach acid mechanical repair worker such as omeprazole, Nexium, or Prilosec; an antidepressant such as citalopram, fluoxetine, sertraline, Cymbalta, Effexor, Lexapro, Pristiq, or Prozac; rifampin; a blood thinner--warfarin, Coumadin, Jantoven; or NSAIDs (nonsteroidal anti-inflammatory drugs)--aspirin, ibuprofen (Advil, Motrin), naproxen (Aleve), celecoxib, diclofenac, indomethacin, meloxicam, and others. This list is not complete. Other drugs may affect clopidogrel, including prescription and bxmm-zkm-kysmxyp medicines, vitamins, and herbal products. Not all possible drug interactions are listed here. Where can I get more information? Your pharmacist can provide more information about clopidogrel. Remember, keep this and all other medicines out of the reach of children, never share your medicines with others, and use this medication only for the indication prescribed. Every effort has been made to ensure that the information provided by [employer]') is accurate, up-to-date, and complete, but no guarantee is made to that effect. Drug information contained herein may be time sensitive. [employer] information has been compiled for use by healthcare practitioners and consumers in the [place] and therefore AREVS does not warrant that uses outside of the [place] are appropriate, unless specifically indicated otherwise. [employer] drug information does not endorse drugs, diagnose patients or recommend therapy. [employer] drug information is an informational resource designed to assist licensed healthcare practitioners in caring for their patients and/or to serve consumers viewing this service as a supplement to, and not a substitute for, the expertise, skill, knowledge and judgment of healthcare practitioners. The absence of a warning for a given drug or drug combination in no way should be construed to indicate that the drug or drug combination is safe, effective or appropriate for any given patient. [employer] does not assume any responsibility for any aspect of healthcare administered with the aid of information [employer] provides. The information contained herein is not intended to cover all possible uses, directions, precautions, warnings, drug interactions, allergic reactions, or adverse effects. If you have questions about the drugs you are taking, check with your doctor, nurse or pharmacist. Copyright 0511-4286 [employer]. Version: 18.01. Revision Date: 10/12/2020. Education Materials Angiogram An angiogram is a procedure used to examine the blood vessels. In this procedure, contrast dye is injected through a long, thin tube (catheter) into an artery. X-rays are then taken, which show if there is a blockage or problem in a blood vessel. The catheter may be inserted in: Your groin area. This is the most common. The fold of your arm, near your elbow. Your wrist. Tell a health care provider about: Any allergies you have, including allergies to shellfish or contrast dye. All medicines you are taking, including vitamins, herbs, eye drops, creams, and nnyv-tvd-ldqeiod medicines. Any problems you or family members have had with anesthetic medicines. Any blood disorders you have. Any surgeries you have had. Any previous kidney problems or failure you have had. Any medical conditions you have. Whether you are or may be . Whether you are . What are the risks? Generally, this is a safe procedure. However, problems may occur, including: Infection or bruising at the catheter area. Damage to other structures or organs, including rupture of blood vessels or damage to arteries. Allergic reaction to the contrast dye used. Kidney damage from the contrast dye used. Blood clots that can lead to a stroke or heart attack. What happens before the procedure? Staying hydrated Follow instructions from your health care provider about hydration, which may include: Up to 2 hours before the procedure you may continue to drink clear liquids, such as water, clear fruit juice, black coffee, and plain tea. Eating and drinking restrictions Follow instructions from your health care provider about eating and drinking, which may include: 8 hours before the procedure stop eating heavy meals or foods such as meat, fried foods, or fatty foods. 6 hours before the procedure stop eating light meals or foods, such as toast or cereal. 6 hours before the procedure stop drinking milk or drinks that contain milk. 2 hours before the procedure stop drinking clear liquids. General instructions Ask your health care provider about: ? Changing or stopping your normal medicines. This is important if you take diabetes medicines or blood thinners. ? Taking medicines such as aspirin and ibuprofen. These medicines can thin your blood. Do not take these medicines before your procedure if your doctor tells you not to. You may have blood samples taken. Plan to have someone take you home from the hospital or clinic. If you will be going home right after the procedure, plan to have someone with you for 24 hours. What happens during the procedure? To reduce your risk of infection: ? Your health care team will wash or sanitize their hands. ? Your skin will be washed with soap. ? Hair may be removed from the insertion area. You will lie on your back on an X-ray table. You may be strapped to the table if it is tilted. An IV tube will be inserted into one of your veins. Electrodes may be placed on your chest to monitor your heart rate during the procedure. You will be given one or more of the following: ? A medicine to help you relax (sedative). ? A medicine to numb the area where the catheter will be inserted (local anesthetic). The catheter will be inserted into an artery using a guide wire. A type of X-ray (fluoroscopy) will be used to help guide the catheter to the blood vessel to be examined. A contrast dye will then be injected into the catheter, and X-rays will be taken. The contrast will help to show where any narrowing or blockages are located in the blood vessels. You may feel flushed as the contrast dye is injected. After the X-ray is complete, the catheter will be removed. A bandage (dressing) will be placed over the site where the catheter was inserted. Pressure will be applied to help stop any bleeding. The procedure may vary among health care providers and hospitals. What happens after the procedure? Your blood pressure, heart rate, breathing rate, and blood oxygen level will be monitored until the medicines you were given have worn off. You will be kept in bed lying flat for several hours. If the catheter was inserted through your leg, you will be instructed not to bend or cross your legs. The insertion area and the pulse in your feet or wrist will be checked frequently. You will be instructed to drink plenty of fluids. This will help wash the contrast dye out of your body. Additional blood tests and X-rays may be done. Tests to check the electrical activity in your heart (electrocardiogram) may be done. Do not drive for 24 hours if you received a sedative. It is up to you to get the results of your procedure. Ask your health care provider, or the department that is doing the procedure, when your results will be ready. Summary An angiogram is a procedure used to examine the blood vessels. In this procedure, contrast dye is injected through a long, thin tube (catheter) into an artery. X-rays are then taken. Before the procedure, follow your health care provider's instructions about eating and drinking restrictions. You may be asked to stop eating and drinking several hours before the procedure. After the procedure, you will need to lie flat for several hours and drink plenty of fluids. This information is not intended to replace advice given to you by your health care provider. Make sure you discuss any questions you have with your health care provider. Document Released: 04/10/2006 Document Revised: 06/13/2018 Document Reviewed: 08/07/2017 [employer] Patient Education 2020 [employer] Additional Information VACCINATE! IT SAVES LIVES! Members of the community who have not yet received the COVID-19 vaccine and would like to receive it can visit one of [facility] vaccine clinics. There are many vaccine clinic locations within the [facility]. For locations and available times, please visit [email or web address] It is important to note that some COVID mobile vaccine clinics are held outdoors and may be canceled in rainy or stormy conditions. To learn more about pediatric vaccinations (ages 5-11), we invite you to visit the [employer] webpage. [email or web address] To learn more about the COVID-19 vaccine, we invite you to visit the CDC website for a list of frequently asked questions.https://www.cdc.gov/coronavirus/2019-ncov /vaccines/faq.html [facility] Patient Portal Access Instructions: Stay connected with your healthcare team and access your personal medical information anytime with the [employer] [facility] Patient Portal. Please follow the directions below to create your [facility] account: 1.Access the email account you provided upon registration to the hospital/physician office.2.Look for an invitation email from [facility].3.Open the email and access the invitation link: Accept Invitation to [facility].4.Fill in the required yarbrough to create your account. To access your account, visit [email or web address]. Click the blue button labeled Access Patient Portal and then log in with the username and password that you created in the steps above. You will be able to view your test results, lab results, a summary of your visits, upcoming appointments and more. There is also a convenient messaging option where you can send secure messages to your provider. In addition, you will have the ability to download any documents or summaries to your computer and/or send the information securely to a physician. Remember that your healthcare information is confidential, so carefully consider who you will allow to register on the [facility] Patient Portal for access to your information. You can also access the [facility] Patient Portal on the [facility] mesfin. Simply click on Patient Portal and then log into your account. If you would like to receive a full copy of your medical records, please contact the [facility] Medical Records Department by calling [phone], Saturday through Saturday between 8 a.m. and 4:30 p.m. HOW TO SAFELY DISPOSE OF PRESCRIPTION MEDICATIONS Please use one of the following methods to safely dispose of your unused medications. 1.Use a drug disposal kit: the drug disposal pouch allows you to safely discard your old and unused drugs. Ask your nurse to give you one when you are discharged.2.Visit a local take-back location: Many local pharmacies and police departments have programs that collect old and unwanted prescription drugs. Call your local pharmacy or go to http://[employer]/5M9Lr9u to find one close to you.3.Make use of household items: Use cat litter or old coffee grounds to dispose medications if other options are not available. Mix your drugs with these household products, seal them in an airtight container and throw it into the garbage. Call [facility]: [phone] to be sure your drugs can be disposed of in this way. Some medicines may require a different approach.4.Never flush your medications down the toilet. IF YOU HAVE BEEN PRESCRIBED AN OPIOID FOR PAIN If you have been prescribed an opioid (such as hydrocodone, oxycodone or morphine), it is critical to understand the possible side effects and risks of opioid pain medications. Even when taken as directed, opioids can have several side effects including: Tolerance, meaning you might need to take more of a medication for the same pain relief. Nausea, vomiting and/or constipation. Sleepiness, dizziness, dry mouth, confusion, depression or itching. Physical dependence, meaning you have withdrawal symptoms when a medication is stopped, can develop within a few days. KNOW YOUR RESPONSIBILITIES It is important to know exactly how much and how often to take the opioid pain medications you are prescribed. Never take opioids in higher amounts or more often than prescribed. Do not combine opioids with alcohol or other drugs that cause drowsiness, such as benzodiazepines, also known as benzos, including diazepam and alprazolam, muscle relaxants or sleep aids. Never sell or share prescription opioids. This is illegal. Store opioids in a secure place and out of reach of others (including children, family, friends and visitors). The last page of this document has been signed and retained as a CHART COPY. Signatures Patient Education Materials Angiogram Medication Leaflets Plavix My discharge plan and instructions have been reviewed and explained to me and I,DAVID FOLEY understand my current condition and have read and understand these discharge instructions. I have received a written copy of the plan/instructions. If I have questions, I am aware that I should contact my doctor. 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 Clinical Note 12-27-2022 Note Date & Type Note Facility 12-27-2022 Note ORIGINAL Images acquired, not reported on this accession number. [facility] Clinical Note 12-27-2022 Note Date & Type Note Facility 12-27-2022 Note ORIGINAL Images acquired, not reported on this accession number. [facility] Clinical Note 12-26-2022 Note Date & Type Note Facility 12-26-2022 Note ORIGINAL Images acquired, not reported on this accession number. [facility] Clinical Note 12-26-2022 Note Date & Type Note Facility 12-26-2022 Note ORIGINAL Images acquired, not reported on this accession number. [facility] Discharge instructions 08-04-2021 Note Date & Type Note Facility 08-04-2021 Hospital Discharg e instructions Patient Education 08/04/2021 16:39:43 Venous Thromboembolism Prevention Venous Thromboembolism Prevention Venous thromboembolism (VTE) is a condition in which a blood clot (thrombus) develops in the body. A deep vein thrombosis (DVT) is a blood clot that usually occurs in a deep vein in the leg or the pelvis, but it can also occur in the arm. Sometimes, pieces of a thrombus can break off and travel through the bloodstream to other parts of the body. When that happens, the thrombus is called an embolus. An embolus that travels to the lungs is called a pulmonary embolism. An embolism can block the blood flow in the blood vessels of other organs as well. How can this condition affect me? VTE is a serious health condition that can cause disability or . It is very important to get help right away. Do not ignore your symptoms. What can increase my risk? You are more likely to develop this condition if you: Have had recent major surgery or trauma. Have certain health conditions, such as cancer. Are in the hospital for a sudden illness. Have not moved for a long period of time, such as if you are on bed rest or traveling a long distance. Take certain medicines, such as control pills or hormone replacement therapy. Are or recently gave . Have a personal or family history of VTE. Are overweight. Are 60 years of age or older. Use products that contain nicotine and tobacco. What actions can I take to prevent this? In the hospital A VTE may be prevented by taking medicines that are prescribed to prevent blood clots (anticoagulants). You can also help to prevent VTE while in the hospital by taking these actions: Get out of bed and walk. Ask your health care provider if this is safe for you to do. Ask your health care provider if you should use a sequential compression device (SCD). This is a machine that pumps air into compression sleeves that are wrapped around your legs. Ask your health care provider if you should wear tight, elastic stockings that apply pressure to the lower legs (compression stockings). Compression stockings are sometimes used with SCDs. At home after surgery Understand that you have an increased risk for VTE for the first 4 6 weeks after surgery. During this time: Avoid traveling for more than 4 hours. If you must travel after surgery, ask your health care provider about additional preventive actions that you can take. Avoid sitting or lying still for too long. If possible, get up and walk around one time every hour. Ask your health care provider when this is safe for you to do. While traveling Travel that takes more than 4 hours can increase the risk of a VTE. To prevent VTE when traveling: Exercise your arms and legs every hour. You can do this by standing, stretching, and bending and straightening your arms and legs. If you are traveling by airplane, train, or bus, walk up and down the aisle as often as possible to get your blood moving. If you are traveling by car, stop and get out of the car every hour to exercise your arms and legs and stretch. Other types of exercise might include: ?Keeping your feet flat on the ground and raising your toes. ?Switching from tightening the muscles in your calves and thighs to relaxing those same muscles while you are sitting. ?Pointing and flexing your feet at the ankle joints while you are sitting. Drink enough water to keep your urine pale yellow. Avoid drinking alcohol during long travel. Generally, it is not recommended that you take medicines to prevent DVT during routine travel. Activity Stay active. Avoid sitting or lying in bed for long periods of time without moving your arms and legs. Exercise by moving your arms and legs for 30 minutes or more every day. Try not to bump or injure your legs. Avoid crossing your legs when you are sitting. Lifestyle Do not use any products that contain nicotine or tobacco, such as cigarettes, e-cigarettes, and chewing tobacco. If you need help quitting, ask your health care provider. This is especially important if you take estrogen medicines. Avoid wearing tight clothing around your legs or waist. General information Wear compression stockings as told by your health care provider. These stockings help to prevent blood clots and reduce swelling in your legs. Do not let them bunch up when you are wearing them. Avoid using medicines that contain estrogen if you do not need them. These include control pills and hormone replacement therapy. Do not use pillows under your knees while lying down unless told by your health care provider. Maintain a healthy weight. Where to find more information Centers for Disease Control and Prevention: www.cdc.gov [employer]: www.heart.org Get help right away if: You have chest pain or shortness of breath. You cough up blood. You have a rapid or irregular heartbeat. You feel light-headed or dizzy. You have new or increased pain, swelling, or redness in an arm or leg. You have numbness or tingling in an arm or leg. You have blood in your vomit, stool, or urine. These symptoms may represent a serious problem that is an emergency. Do not wait to see if the symptoms will go away. Get medical help right away. Call your local emergency services (911 in the [place] Do not drive yourself to the hospital. Summary Venous thromboembolism (VTE) is a condition in which a blood clot (thrombus)develops in the body. A deep vein thrombosis (DVT) is a blood clot that usually occurs in a deep vein in the leg or the pelvis, but it can also occur in the arm. VTE is a serious health condition that can cause disability or . It is very important to get help right away. Do not ignore your symptoms. If you are traveling, exercise your arms and legs every hour. Stay active to help prevent blood clots. Avoid sitting or lying in bed for long periods of time without moving your arms and legs. This information is not intended to replace advice given to you by your health care provider. Make sure you discuss any questions you have with your health care provider. Document Released: 06/19/2010 Document Revised: 10/20/2019 Document Reviewed: 09/08/2019 [employer] Patient Education 2020 [employer]. 08/04/2021 16:39:08 Peripheral Vascular Disease, [id number] Peripheral Vascular Disease Peripheral vascular disease (PVD) is a disease of the blood vessels that are not part of your heart and brain. A simple term for PVD is poor circulation. In most cases, PVD narrows the blood vessels that carry blood from your heart to the rest of your body. This can reduce the supply of blood to your arms, legs, and internal organs, like your stomach or kidneys. However, PVD most often affects a person s lower legs and feet. Without treatment, PVD tends to get worse. PVD can also lead to acute ischemic limb. This is when an arm or leg suddenly cannot get enough blood. This is a medical emergency. Follow these instructions at home: Lifestyle Do not use any products that contain nicotine or tobacco, such as cigarettes and e-cigarettes. If you need help quitting, ask your doctor. Lose weight if you are overweight. Or, stay at a healthy weight as told by your doctor. Eat a diet that is low in fat and cholesterol. If you need help, ask your doctor. Exercise regularly. Ask your doctor for activities that are right for you. General instructions Take [id number] and prescription medicines only as told by your doctor. Take good care of your feet: ?Wear comfortable shoes that fit well. ?Check your feet often for any cuts or sores. Keep all follow-up visits as told by your doctor This is important. Contact a doctor if: You have cramps in your legs when you walk. You have leg pain when you are at rest. You have coldness in a leg or foot. Your skin changes. You are unable to get or have an erection (erectile dysfunction). You have cuts or sores on your feet that do not heal. Get help right away if: Your arm or leg turns cold, numb, and blue. Your arms or legs become red, warm, swollen, painful, or numb. You have chest pain. You have trouble breathing. You suddenly have weakness in your face, arm, or leg. You become very confused or you cannot speak. You suddenly have a very bad headache. You suddenly cannot see. Summary Peripheral vascular disease (PVD) is a disease of the blood vessels. A simple term for PVD is poor circulation. Without treatment, PVD tends to get worse. Treatment may include exercise, low fat and low cholesterol diet, and quitting smoking. This information is not intended to replace advice given to you by your health care provider. Make sure you discuss any questions you have with your health care provider. Document Released: 09/25/2010 Document Revised: 06/13/2018 Document Reviewed: 08/08/2017 [employer] Patient Education 2020 [employer]. Follow Up Care 07/27/2021 13:01:00 With:SREEDHAR DUMONT Address: [address] [place] [address] [phone] Business (1) When:1-2 days With:VENESSA VILLARREAL Address: [facility] [id number] [place] [address] Business (1) When: Unknown Comments:Call Saturday to set up appointment within [address] [facility] Evaluation + Plan note Note Date & Type Note Facility Evaluation + Plan note No data available for this section 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 Advance Directives and Livin g Will 07/01/2020 10:03 AM Documents on File Type Date Recorded 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 Advance Directives and Livin g Will 07/01/2020 10:03 AM Reason for Referral Status Reason Specialty Diagnoses / Procedures Referred By Contact Referred To Contact Pending Review Cardiology Diagnoses Bilateral carotid artery stenosis Procedures Carotid Duplex rTaci Yao III, DO [address] [id number] Status Reason Specialty Diagnoses / Procedures Re ferred By Contact Referred To Contact Pending Review Cardiology Diagnoses Peripheral arterial disease (HCC) History of femoropopliteal bypass Procedures US duplex bypass graft Traci Yao III, DO [address] [id number] Status Reason Specialty Diagnoses / Procedures Re ferred By Contact Referred To Contact Pending Review Cardiology Diagnoses Peripheral arterial disease (HCC) History of femoropopliteal bypass Procedures Segmental Doppler Lower Extremity Arterial W Exercise Traci Yao III, DO [address] [id number] Status Reason Specialty Diagnoses / Procedures Referred By Contact Referred To Contact Closed Specialty Services Required/Patient 's Best Interest Cardiology Diagnoses Peripheral vascular disease, unspecified (HCC) Sreedhar Dumont MD [address] [place] [address] Traci Yao III, DO [address] [id number] Status Reason Specialty Diagnoses / Procedures Re ferred By Contact Referred To Contact Pending Review Cardiology Diagnoses PAD (peripheral artery disease) (HCC) History of femoropopliteal bypass Procedures Ultrasound duplex arterial legs bilat US duplex bypass graft Traci Yao III, DO [address] [id number] Status Reason Specialty Diagnoses / Procedures Re ferred By Contact Referred To Contact Pending Review Cardiology Diagnoses PAD (peripheral artery disease) (HCC) History of femoropopliteal bypass Procedures US Doppler ankle/brachial index Segmental doppler lower extremity arterial w exercise Traci Yao III, DO [address] [id number] Status Reason Specialty Diagnoses / Procedures Referred By Contact Referred To Contact Pending Review Cardiology Diagnoses Peripheral arterial disease (HCC) Procedures Ultrasound duplex arterial legs bilat Fauser, Nyoka Gilda, DIRECTOR [employer] [address] [place] [address] Status Reason Specialty Diagnoses / Procedures Referred By Contact Referred To Contact Pending Review Cardiology Diagnoses Peripheral arterial disease (HCC) Procedures US Doppler ankle/brachial index Fauser, Nyoka Gilda, DIRECTOR [employer] [place] [address] Status Reason Specialty Diagnoses / Procedures Re ferred By Contact Referred To Contact Pending Review Cardiology Diagnoses PAD (peripheral artery disease) (HCC) History of femoropopliteal bypass Procedures Ultrasound duplex arterial leg left Ross Marie MD [address] [place] [address] Status Reason Specialty Diagnoses / Procedures Re ferred By Contact Referred To Contact Pending Review Cardiology Diagnoses PAD (peripheral artery disease) (HCC) History of femoropopliteal bypass Procedures US Doppler ankle/brachial index Ross Marie MD [address] [id number] Status Reason Specialty Diagnoses / Procedures Referred By Contact Referred To Contact Pending Review Cardiology Diagnoses Bilateral carotid artery occlusion Procedures Carotid Duplex Traci Yao III, DO [address] [id number] Status Reason Specialty Diagnoses / Procedures Re ferred By Contact Referred To Contact Pending Review Cardiology Diagnoses Peripheral arterial disease (HCC) History of femoropopliteal bypass Procedures Ultrasound duplex arterial legs bilat Traci Yao PREMA, DO [address] [place] [address] Status Reason Specialty Diagnoses / Procedures Re ferred By Contact Referred To Contact Pending Review Cardiology Diagnoses Peripheral arterial disease (HCC) History of femoropopliteal bypass Procedures US Doppler ankle/brachial index Traci Yao PREMA, DO [address] [place] [address] History of Present Illness * Traci Yao III, DO - 10/15/2018 1:25 PM EDT Assessment & Plan: SNOMED CT(R) 1. Peripheral arterial disease (HCC) PERIPHERAL VASCULAR DISEASE Ambulatory referral to Cardiology Segmental Doppler Lower Extremity Arterial W Exercise US duplex bypass graft 2. History of femoropopliteal bypass HISTORY OF ARTERIAL BYPASS OF LOWER LIMB ARTERY Segmental Doppler Lower Extremity Arterial W Exercise US duplex bypass graft 3. Bilateral carotid artery stenosis BILATERAL CAROTID ARTERY STENOSIS Carotid Duplex Plan: At the present time, Mr. Foley is stable regarding his vascular status. He denies any evidence of claudication symptoms. He denies any evidence of limb risk or tissue loss. He denies any TIAs or amaurosis. We are obtaining his most recent vascular testing from his prior vascular surgeons office (approximately 1 year ago). Will obtain further and new testing in our office within the next 2- 3 weeks. Unless something is markedly abnormal, we will see him back in the office in 1 year with further testing at that time to monitor his bilateral lower extremity bypass graft as well as carotid artery disease. We appreciate the opportunity to consult and participate in his care. If you have any questi ons, please feel free to contact us. Follow Up Ordered: Return in about 1 year (around 10/16/2019) for Recheck with testing. Subjective: David Foley is a 73 y.o. male seen in the office today for evaluation regarding vascular diseaseand carotid artery disease. Mr. Foley (birthday 1945) was seen in the office today on October 15, 2018. He presents at the request of his family doctor to evaluate his vascular status. He has a known history of significant vascular disease. He relates [facility] He has been followed regularly by a vascular surgical specialty group in [facility] over the past number of years. But his surgeon at that location is since moved, and he wants to follow-up closer to home and with a physician that he feels comfortable with. Therefore he presents to our office to discuss his clinical status. He denies any TIAs, amaurosis, evidence ofneurologic symptoms. He denies any claudication, rest pain, night pain, evidence of progressive vascular disease. He denies any tobacco use for the past 2 years, though was a heavy smoker prior to that. He states that he underwent bilateral leg bypass in 2005 months is is a 61-year-old) due to severe short distance claudication in both legs. He states that he underwent bypass on both legs at the same surgical procedure in [place], [place]. He does tolerate antiplatelet therapy with aspirin Plavix without difficulty. He denies any diabetes mellitus. Histories: Past Medical History: Diagnosis Date Coronary artery disease Disease of thyroid gland GERD (gastroesophageal reflux disease) Hyperlipidemia Hypertension Pancreatitis Peripheral vascular disease (HCC) Past Surgical History: Procedure Laterality Date ARTERIAL BYPASS SURGERY Bilateral 2005 Above-knee femoropopliteal, with plastic bypass conduit TONSILLECTOMY Family History Problem Relation Age of Onset Cancer Mother Heart attack Maternal Grandfather Social History Tobacco Use Smoking status: Former Smoker Years: 55.00 Smokeless tobacco: Never Used Substance Use Topics Alcohol use: Never Frequency: Never Drug use: Never Current Outpatient Medications Medication Sig Dispense Refill aspirin 81 MG EC tablet Take 81 mg by mouth daily . clopidogrel (PLAVIX) 75 mg tablet Take 75 mg by mouth daily . co-enzyme Q-10 30 mg capsule Take 30 mg by mouth daily . fish oil-omega-3 fatty acids 300-1,000 mg capsule Take 2 g by mouth daily . Lactobacillus acidophilus (PROBIOTIC ACIDOPHILUS ORAL) Take by mouth . LATANOPROST, PF, OPHT Apply to eye . levothyroxine (SYNTHROID, LEVOTHROID) 88 MCG tablet Take 88 mcg by mouth once daily . lisinopril (PRINIVIL,ZESTRIL) 10 MG tablet Take 10 mg by mouth daily . multivitamin (multivitamin) per tablet Take 1 tablet by mouth daily . pantoprazole (PROTONIX) 40 MG tablet Take 40 mg by mouth daily . simvastatin (ZOCOR) 40 MG tablet Take 40 mg by mouth nightly . timolol (BETIMOL) 0.5 % ophthalmic solution Administer 1 drop to the right eye 2 (two) times a day . PROAIR HFA 90 mcg/actuation inhaler Inhale 2 puffs every 6 (six) hours as needed for wheezing . No current facility-administered medications for this visit. No Known Allergies Review of Systems Constitution: Negative for chills, decreased appetite, fever, night sweats, weight gain and weight loss. HENT: Negative. Negative for hoarse voice and sore throat. Eyes: Negative for vision loss in left eye, vision loss in right eye and visual disturbance. Cardiovascular: Negative for chest pain, claudication, cyanosis, dyspnea on exertion, irregular heartbeat, leg swelling, palpitations and paroxysmal nocturnal dyspnea. Respiratory: Negative for cough, hemoptysis, shortness of breath, sleep disturbances due to breathing and wheezing. Endocrine: Negative. Negative for cold intolerance. Hematologic/Lymphatic: Negative for bleeding problem. Does not bruise/bleed easily. Skin: Negative. Negative for color change, dry skin, nail changes and poor wound healing. Musculoskeletal: Negative for arthritis, back pain, falls, gout, joint pain and muscle weakness. Gastrointestinal: Negative for abdominal pain, constipation, diarrhea, heartburn, jaundice, melena,nausea and vomiting. Genitourinary: Negative for dysuria, flank pain, frequency, hematuria and nocturia. Neurological: Negative for brief paralysis, dizziness, focal weakness, headaches, light-headedness,loss of balance, numbness and paresthesias. Psychiatric/Behavioral: Negative for altered mental status, depression, memory loss and substance abuse. The patient is not nervous/anxious. Allergic/Immunologic: Negative. Negative for hives and persistent infections. Objective: Vitals: Vitals: 10/15/18 1322 10/15/18 1329 BP: 130/72 (!) 157/76 BP Location: Left arm Right arm Pulse: (!) 56 SpO2: 99% Weight: 89.8 kg (198 lb) Height: 6' Physical Exam Constitutional: He is oriented to person, place, and time. Vital signs are normal. He appears well-developed and well-nourished. He is active. HENT: Head: Normocephalic and atraumatic. Eyes: Conjunctivae, EOM and lids are normal. Neck: Trachea normal, normal range of motion and full passive range of motion without pain. Neck supple. Normal carotid pulses and no JVD present. Carotid bruit is not present. No thyromegaly present. Cardiovascular: Normal rate, regular rhythm and normal heart sounds. No murmur heard. Pulses: Carotid pulses are 2+ on the right side, and 2+ on the left side. Radial pulses are 2+ on the right side, and 2+ on the left side. Popliteal pulses are 2+ on the right side, and 2+ on the left side. Dorsalis pedis pulses are 2+ on the right side, and 2+ on the left side. Posterior tibial pulses are 2+ on the right side, and 2+ on the left side. Bilateral above-knee femoropopliteal bypass surgical incisions are healed without signs of infection or cellulitis. Pulmonary/Chest: Effort normal and breath sounds normal. He has no wheezes. He has no rhonchi. He has no rales. Abdominal: Soft. Normal appearance and bowel sounds are normal. He exhibits no abdominal bruit. There is no hepatosplenomegaly. There is no tenderness. There is no rigidity, no rebound and no guarding. Musculoskeletal: Normal range of motion. Neurological: He is alert and oriented to person, place, and time. He has normal strength. No cranial nerve deficit or sensory deficit. He displays a negative Romberg sign. Skin: Skin is warm, dry and intact. No cyanosis. Nails show no clubbing. Good hair growth is noted bilateral feet. Psychiatric: He has a normal mood and affect. His speech is normal and behavior is normal. Judgmentand thought content normal. Cognition and memory are normal. in this encounter* Clare Garcia CNP - 06/16/2019 11:24 AM EST [facility] [address] ([address]) [facility] [address] [facility] [id number] HPI: Subjective David Foley is a 74 y.o. male who presents for follow up on 06/16/19. Mr. laguna has known peripheral arterial disease. He is status post bilateral femoropopliteal bypass that was performed 13 years ago in [facility]. He is previously seen in this office by Dr. Pulido in October 2018. He admits that he remains active. He denies claudication symptoms. He admits that he quit smoking 2.5 yrsago. he has a has a past medical history of Coronary artery disease, Disease of thyroid gland, GERD (gastroesophageal reflux disease), Hyperlipidemia, Hypertension, Pancreatitis, and Peripheral vascular disease (HCC). David Foley denies c/o chest pain, shortness of breath, dyspnea on exertion, near/cesar syncope,PND, orthopnea, lower extremity swelling/claudication. ASSESSMENT & PLAN Peripheral arterial disease (HCC) He has known peripheral arterial disease. He is status post bilateral femoral to popliteal artery bypass surgery that was performed 13 years ago in [facility]. At this time he denies claudication symptoms. He has quit smoking 2 and half years ago. He continues to lead an active lifestyle. JUS today shows right JUS 1.02, TBI 0.29 and left JUS 1.01, TBI 0.43. He has triphasic waveforms tobilateral lower extremities. There are noted elevated velocities however grafts appear to be widelypatent. -Continue activity as tolerated -Continue Plavix, simvastatin, and aspirin -We will follow-up with yearly noninvasive imaging -Maintain blood pressure per JNC 8 guidelines <140/90 Hypertension Slightly elevated per JNC 8 guidelines at 156/75 -Managed by PCP History of femoropopliteal bypass Bilateral. Performed 13 years ago in [facility] REVIEW OF SYSTEMS Review of Systems Constitution: Negative for diaphoresis, malaise/fatigue, weight gain and weight loss. HENT: Negative for hearing loss, nosebleeds and tinnitus. Eyes: Negative for blurred vision and visual disturbance. Cardiovascular: Negative for chest pain, claudication, cyanosis, dyspnea on exertion, irregular heartbeat, leg swelling, near-syncope, orthopnea, palpitations, paroxysmal nocturnal dyspnea and syncope. Respiratory: Negative for hemoptysis, shortness of breath and snoring. Endocrine: Negative for cold intolerance and heat intolerance. Hematologic/Lymphatic: Does not bruise/bleed easily. Skin: Negative for flushing, poor wound healing and rash. Musculoskeletal: Positive for joint pain (mild). Negative for back pain, muscle weakness and myalgias. Gastrointestinal: Negative for abdominal pain, change in bowel habit, melena, nausea and vomiting. Genitourinary: Negative for dysuria and hematuria. Neurological: Negative for loss of balance and numbness. Psychiatric/Behavioral: Negative for depression and memory loss. The patient is not nervous/anxious. Past Medical History: Diagnosis Date Coronary artery disease Disease of thyroid gland GERD (gastroesophageal reflux disease) Hyperlipidemia Hypertension Pancreatitis Peripheral vascular disease (HCC) Past Surgical History: Procedure Laterality Date ARTERIAL BYPASS SURGERY Bilateral 2006 Above-knee femoropopliteal, with plastic bypass conduit TONSILLECTOMY Family History Problem Relation Age of Onset Cancer Mother Heart attack Maternal Grandfather Social History Tobacco Use Smoking status: Former Smoker Years: 55.00 Smokeless tobacco: Never Used Substance Use Topics Alcohol use: Never Frequency: Never Drug use: Never Current Outpatient Medications Medication Sig Dispense Refill aspirin 81 MG EC tablet Take 81 mg by mouth daily . clopidogrel (PLAVIX) 75 mg tablet Take 75 mg by mouth daily . co-enzyme Q-10 30 mg capsule Take 30 mg by mouth daily . fish oil-omega-3 fatty acids 300-1,000 mg capsule Take 2 g by mouth daily . Lactobacillus acidophilus (PROBIOTIC ACIDOPHILUS ORAL) Take by mouth . LATANOPROST, PF, OPHT Apply to eye . levothyroxine (SYNTHROID, LEVOTHROID) 88 MCG tablet Take 88 mcg by mouth once daily . lisinopril (PRINIVIL,ZESTRIL) 10 MG tablet Take 10 mg by mouth daily . multivitamin (multivitamin) per tablet Take 1 tablet by mouth daily . pantoprazole (PROTONIX) 40 MG tablet Take 40 mg by mouth daily . simvastatin (ZOCOR) 40 MG tablet Take 40 mg by mouth nightly . timolol (BETIMOL) 0.5 % ophthalmic solution Administer 1 drop to the right eye 2 (two) times a day . PROAIR HFA 90 mcg/actuation inhaler Inhale 2 puffs every 6 (six) hours as needed for wheezing . No current facility-administered medications for this visit. No Known Allergies PHYSICAL EXAMINATION Vitals: Vitals: 06/16/19 1114 06/16/19 1120 BP: 149/74 (!) 156/75 BP Location: Right arm Patient Position: Sitting Pulse: (!) 54 Weight: 90.7 kg (200 lb) Height: 6' Physical Exam Constitutional: He is oriented to person, place, and time. He appears well- developed and well-nourished. HENT: Head: Normocephalic. Mouth/Throat: Oropharynx is clear and moist. Eyes: Conjunctivae and lids are normal. Neck: No JVD present. Carotid bruit is not present. Cardiovascular: Normal rate, regular rhythm and normal heart sounds. Pulses: Dorsalis pedis pulses are 2+ on the right side and 1+ on the left side. Posterior tibial pulses are 1+ on the right side and 0 on the left side. Pulmonary/Chest: Effort normal and breath sounds normal. Abdominal: Soft. Bowel sounds are normal. He exhibits no mass. There is no hepatosplenomegaly. There is no abdominal tenderness. Musculoskeletal: Normal range of motion. Neurological: He is alert and oriented to person, place, and time. Gait normal. Skin: Skin is warm and intact. No rash noted. Psychiatric: He has a normal mood and affect. His behavior is normal. Nursing note and vitals reviewed. Orders Placed This Encounter US Doppler ankle/brachial index Ultrasound duplex arterial legs bilat Return in about 1 year (around 06/16/2020) for with scan. Please do not hesitate to contact the office at the above number should you have additional questions or concerns. Thank you for entrusting your patient to our care. Sincerely, Clare Garcia CNP documented in this encounter* Traci Yao III, - 07/06/2020 12:10 PM EST Assessment & Plan: 1. Peripheral arterial disease (HCC) US Doppler ankle/brachial index Ultrasound duplex arterial legs bilat 2. History of femoropopliteal bypass US Doppler ankle/brachial index Ultrasound duplex arterial legs bilat Plan: At the present time, Mr. Foley is stable regarding his vascular status. I think his symptoms of fatigue and tiredness of the calves and thighs when he goes up and down stairs or walking up a slope was probably musculoskeletal or orthopedic (DJD) disease rather than arterial insufficiency. His ankle-brachial indices today are normal as well as his bilateral duplex scans of the bypasses are patent without any evidence of narrowing or stenosis. From my perspective he is done well with regards to his revascularization. I encouraged him to continue with his medication therapy as well as exercise program and activities. We will see him back in the office in 1 year with further testing and continue to monitor him clinically. We will keep you informed, and we appreciate the opportunity to participate in his care. Follow Up Ordered: No follow-ups on file. Subjective: David Foley is a 75 y.o. male seen in the office today for follow up regarding PAD with a history of bilateral femoral-popliteal artery bypass. Mr. Foley (birthday 1945) was seen in the office on July 06, 2020. It has been 1 year since he was seen last. He has a known history of PAD, and has had previous bilateral femoral-poplitealbypasses performed 14 years ago in [facility]. He states he is doing well. He does complainof some increasing symptoms of Fatigue and tiredness and thigh fatigue and tiredness when he goes up and down stairs several times, or walking uphill for extended distances. He denies any night pain,rest pain, ulcers or tissue loss or stereotypical claudication. He continues to tolerate his medications satisfactory including aspirin and Plavix. He did undergo a lower extremity arterial duplex scan of both legs, as well as JUS in the office prior to seeing me. Histories: Past Medical History: Diagnosis Date Coronary artery disease Disease of thyroid gland GERD (gastroesophageal reflux disease) Hyperlipidemia Hypertension Pancreatitis Peripheral vascular disease (HCC) Past Surgical History: Procedure Laterality Date ARTERIAL BYPASS SURGERY Bilateral 2005 Above-knee femoropopliteal, with plastic bypass conduit TONSILLECTOMY Family History Problem Relation Age of Onset Cancer Mother Heart attack Maternal Grandfather Social History Tobacco Use Smoking status: Former Smoker Packs/day: 1.00 Years: 55.00 Pack years: 55.00 Quit date: 2016 Years since quittin.9 Smokeless tobacco: Never Used Substance Use Topics Alcohol use: Never Frequency: Never Drug use: Never Current Outpatient Medications Medication Sig Dispense Refill aspirin 81 MG EC tablet Take 81 mg by mouth daily . clopidogrel (PLAVIX) 75 mg tablet Take 75 mg by mouth daily . coenzyme Q10 (Co Q-10) 10 mg capsule Take 10 mg by mouth daily . docosahexaenoic acid/epa (FISH OIL ORAL) Take 1,200 mg by mouth 2 (two) times a day . latanoprost, PF, 0.005 % Drop Apply to eye daily 1 drop both eyes . levothyroxine (SYNTHROID, LEVOTHROID) 88 MCG tablet Take 88 mcg by mouth once daily . lisinopril (PRINIVIL,ZESTRIL) 10 MG tablet Take 10 mg by mouth daily . multivitamin (multivitamin) per tablet Take 1 tablet by mouth daily . pantoprazole (PROTONIX) 40 MG tablet Take 40 mg by mouth daily . simvastatin (ZOCOR) 40 MG tablet Take 40 mg by mouth nightly . timolol (BETIMOL) 0.5 % ophthalmic solution Administer 1 drop to the right eye 2 (two) times a day . UNABLE TO FIND Florajen Digestion Probiotic daily . No current facility-administered medications for this visit. Allergies Allergen Reactions Red Dye Hives Needs antihistamine to counteract red dye ROS Objective: Vitals: Vitals: 07/06/20 1228 07/06/20 1229 BP: 146/79 (!) 152/74 BP Location: Right arm Left arm Patient Position: Sitting Sitting BP Cuff Size: Adult Adult Pulse: 71 73 Resp: 16 Weight: 87.7 kg (193 lb 6.4 oz) Height: 6' Physical Exam Constitutional: He is oriented to person, place, and time. Vital signs are normal. He appears well-developed and well-nourished. He is active and cooperative. HENT: Head: Normocephalic. Eyes: Lids are normal. Neck: Normal range of motion. Neck supple. No JVD present. Cardiovascular: Normal rate, regular rhythm and normal heart sounds. No murmur heard. Pulses: Popliteal pulses are 2+ on the right side and 2+ on the left side. Dorsalis pedis pulses are 2+ on the right side and 2+ on the left side. Posterior tibial pulses are 2+ on the right side and 2+ on the left side. Bilateral above-knee femoropopliteal bypass surgical incisions are healed without signs of infection or cellulitis. Pulmonary/Chest: Effort normal. Abdominal: Soft. Normal appearance and bowel sounds are normal. There is no abdominal tenderness. Musculoskeletal: Right ankle: He exhibits normal pulse. Left ankle: He exhibits normal pulse. Lumbar back: He exhibits decreased range of motion. Right foot: Normal capillary refill. Left foot: Normal capillary refill. Neurological: He is alert and oriented to person, place, and time. He has normal strength. He is not disoriented. He exhibits normal muscle tone. Gait normal. Skin: Skin is warm, dry and intact. No cyanosis. Nails show no clubbing. Good hair growth is noted bilateral feet. Psychiatric: He has a normal mood and affect. His speech is normal and behavior is normal. Thought content normal. Lab Review: The following labs were reviewed and within the chart Bilateral ankle-brachial indices performed in the office on July 06, 2020 indicates normal resting ABIs bilaterally. His right leg resting JUS is 1.03, and his left leg resting JUS is 1.03. Bilateral lower extremity arterial duplex scan performed in the office on July 06, 2020 indicates less than 50% stenosis in bilateral lower extremities. Bilateral femoral-popliteal artery bypasses are patent without hemodynamically significant stenoses. There is an elevated velocity of the left proximal anastomosis, though no stenosis is identified. documented in this encounter Assessments Diagnosis Peripheral arterial disease (HCC)- Primary Unspecified peripheral vascular disease History of femoropopliteal bypass Bilateral carotid artery stenosis Occlusion and stenosis of carotid artery without mention of cerebral infarction Diagnosis PAD (peripheral artery disease) (HCC) Unspecified peripheral vascular disease History of femoropopliteal bypass Diagnosis Peripheral arterial disease (HCC) Unspecified peripheral vascular disease Hypertension, unspecified type History of femoropopliteal bypass Diagnosis PAD (peripheral artery disease) (HCC) Unspecified peripheral vascular disease History of femoropopliteal bypass Diagnosis Peripheral arterial disease (HCC) Unspecified peripheral vascular disease Diagnosis Bilateral carotid artery occlusion Occlusion and stenosis of carotid artery without mention of cerebral infarction Diagnosis Peripheral arterial disease (HCC)- Primary Unspecified peripheral vascular disease History of femoropopliteal bypass Instructions * Patient Instructions* Qi Rose MA - 06/16/2019 11:14 AM EST How to contact your Care Team: Providers: DO Clare Rizzo III, CNP Nurse: Karen Dominguez RN In case of an emergency please call 911. When in need of refills please call the phone number listed above. Please include medication name, pharmacy name and specify 30 or 90 day supply Please check with your pharmacy within 24 hours of your request for refill. You must follow up as directed to continue current refills. Thank you! documented in this encounter* Patient Instructions* Perla Dominguez RN - 07/06/2020 12:13 PM EST How to contact your Care Team: Providers: DO Clare Rizzo III, CNP Nurse: Karen Dominguez RN In case of an emergency please call 911. When in need of refills please call the phone number listed above. Please include medication name, pharmacy name and specify 30 or 90 day supply Please check with your pharmacy within 24 hours of your request for refill. You must follow up as directed to continue current refills. Thank you! documented in this encounter Additional Source Comments (unrecognized sect ion and content) No Status Records FoundNo Status Records FoundNo Status Records FoundNo Status Records Found INFORMATION SOURCE (unrecogn ized section and content) DATE CREATED AUTHOR AUTHOR'S ORGANIZ ATION 07/06/2020 [facility] DATE CREATED AUTHOR AUTHOR'S ORGANIZ ATION 07/07/2020 [facility] DATE CREATED AUTHOR AUTHOR'S ORGANIZ ATION 01/02/2023 [facility] ([place]) Reason for Visit (unrecogniz ed section and content) Status Reason Specialty Diagnoses / Procedures Referred By Contact Referred To Contact Closed Specialty Services Required/Patient 's Best Interest Cardiology Diagnoses Peripheral vascular disease, unspecified (HCC) Sreedhar Dumont MD [address] [place] [address] Traci Yao III, DO [address] [place] [address] Status Reason Specialty Diagnoses / Procedures Re ferred By Contact Referred To Contact Pending Review Cardiology Diagnoses PAD (peripheral artery disease) (HCC) History of femoropopliteal bypass Procedures Ultrasound duplex arterial legs bilat US duplex bypass graft Traci Yao III, DO [address] [place] [address] Status Reason Specialty Diagnoses / Procedures Re ferred By Contact Referred To Contact Pending Review Cardiology Diagnoses PAD (peripheral artery disease) (HCC) History of femoropopliteal bypass Procedures US Doppler ankle/brachial index Segmental doppler lower extremity arterial w exercise Traci Yao III, DO [address] [place] [id number] Reason Comments Follow-up dup, jus Status Reason Specialty Diagnoses / Procedures Re ferred By Contact Referred To Contact Pending Review Cardiology Diagnoses PAD (peripheral artery disease) (HCC) History of femoropopliteal bypass Procedures Ultrasound duplex arterial leg left Ross Marie MD [address] [id number] Status Reason Specialty Diagnoses / Procedures Re ferred By Contact Referred To Contact Pending Review Cardiology Diagnoses PAD (peripheral artery disease) (HCC) History of femoropopliteal bypass Procedures US Doppler ankle/brachial index Ross Marie MD [address] [id number] Status Reason Specialty Diagnoses / Procedures Referred By Contact Referred To Contact Pending Review Cardiology Diagnoses Peripheral arterial disease (HCC) Procedures US Doppler ankle/brachial index Fauser, Nyoka Gilda, DIRECTOR [employer] [address] [place] [address] Status Reason Specialty Diagnoses / Procedures Referred By Contact Referred To Contact Pending Review Cardiology Diagnoses Peripheral arterial disease (HCC) Procedures Ultrasound duplex arterial legs bilat Fauser, Nyoka Gilda, DIRECTOR [address] [place] [address] Status Reason Specialty Diagnoses / Procedures Referred By Contact Referred To Contact Pending Review Cardiology Diagnoses Bilateral carotid artery occlusion Procedures Carotid Duplex Traci Yao III, DO [address] [place] [address] Reason Comments Follow-up Assessment & Plan Note - Clare Garcia CNP - 06/16/2019 12:07 PM ESTAssessment & Plan Note - Clare Garcia CNP - 06/16/2019 11:30 AM EST Miscellaneous Notes (unrecog nized section and content) Associated Problem(s): History of femoropopliteal bypass Bilateral. Performed 13 years ago in [facility] Associated Problem(s): Hypertension Slightly elevated per JNC 8 guidelines at 156/75 -Managed by PCP Associated Problem(s): Peripheral arterial disease (HCC) He has known peripheral arterial disease. He is status post bilateral femoral to popliteal artery bypass surgery that was performed 13 years ago in [facility]. At this time he denies claudication symptoms. He has quit smoking 2 and half years ago. He continues to lead an active lifestyle. JUS today shows right JUS 1.02, TBI 0.29 and left JUS 1.01, TBI 0.43. He has triphasic waveforms to bilateral lower extremities. There are noted elevated velocities however grafts appear to be widely patent. -Continue activity as tolerated -Continue Plavix, simvastatin, and aspirin -We will follow-up with yearly noninvasive imaging -Maintain blood pressure per JNC 8 guidelines <140/90 documented in this encounter Patient Care team informatio n (unrecognized section and content) Care Team Personnel Name: SREEDHAR DUMONT MD Member Role: Primary Care Physician Address: Address: [address] [place] [phone] [place] Care Team Related Persons Name: VIRAL FOLEY FOR RECORDS PERTAINING TO PATIENTS WHO ARE OR HAVE BEEN ENROLLED IN A CHEMICAL DEPENDENCY/SUBSTANCEABUSE PROGRAM, SOME INFORMATION MAY BE OMITTED. This clinical summary was aggregated from multiple sources. Caution should be exercised in using it in the provision of clinical care. This summary normalizes information from multiple sources, and as a consequence, information in this document may materially change the coding, format and clinical context of patient data. In addition, data may be omitted in some cases. CLINICAL DECISIONS SHOULD BE BASED ON THE PRIMARY CLINICAL RECORDS. [facility] [employer] [facility] provides no warranty or guarantee of the accuracy or completeness of information in this document.
[2023-07-24 15:39] LABS: Absolute Lymphocyte Count 2.28 X10^3/uL (0.83-4.51); Absolute Neutrophil Count 4.1 X10^3/uL (2.0-7.7); Basophil# 0.05 X10^3/uL; Basophil% 0.7 % (0-1); Eosinophil# 0.26 X10^3/uL; Eosinophils% 3.6 % (0-5); Hematocrit 41.4 % (40-54); Hemoglobin 13.5 g/dL (13.0-16.5); Lymphocyte # 2.28 X10^3/ul (0.83-4.51); Lymphocyte % 31.5 % (19-41); Mean Corp Hgb Conc 32.6 g/dL (32-36); Mean Corpuscular Hgb 31.1 pg (27.0-32.0); Mean Corpuscular Volume 95.4 fL (80-94); Mean Platelet Vol. 10.7 fl (6.2-12.0); Monocyte# 0.58 X10^3/uL; NRBC Flagged by Analyzer 0 % (0-5); Neutrophil # 4.06 X10^3/uL (2.7-7.7); Neutrophil % 56.1 % (47-70); Platelet Count 178 K/mm3 (150-450); RBC Distribution Width CV 12.8 % (11.6-14.6); RBC Distribution Width SD 44.9 fl (35.1-43.9); Red Blood Count 4.34 M/mm3 (4.6-6.2); White Blood Count 7.2 K/mm3 (4.4-11.0)
[2023-07-24 16:21] LABS: ALB/GLOB Ratio 0.9 RATIO (0.9-2.4); AST(SGOT) 19 U/L (15-37); Alanine Aminotransfer ALT/SGPT 12 U/L (16-61); Albumin, Serum 3.6 g/dL (3.2-5.0); Alkaline Phosphatase 65 U/L (45-117); Anion Gap 5 (5-15); BUN 22 mg/dL (7-18); BUN/Creat Ratio 15.5 RATIO (10-20); Calcium,Total 9.3 mg/dL (8.5-10.1); Chloride 108 mmol/L (98-107); Cholesterol 189 mg/dL (200); Creatinine, Serum 1.42 mg/dL (0.70-1.30); EST Glomerular Filtration Rate 51 mL/min (>60); Est Glom Filt Rate - Afr Amer 62 mL/min (>60); Free T3 3.4 pg/mL (2.18-3.98); Globulin 4.1 g/dL (2.2-4.2); Glucose 78 mg/dL (74-106); High Density Lipoprotein 42 mg/dL; Potassium 3.8 mmol/L (3.5-5.1); Protein, Total 7.7 g/dL (6.4-8.2); Sodium Level 139 mmol/L (136-145); T4 Free Direct 1.79 ng/dL (0.76-1.46); Thyroid Stim Hormone (TSH) 1.18 uIU/mL (0.358-3.74); Triglycerides 150 mg/dL; Very Low Density Lipoprotein 30 mg/dL (5-40)
== END | disposition home or self-care (01) ==
LOC: MFPLAB 13:54
PROVIDERS: PCP Family Medicine; Visit Provider Family Medicine
DX: E03.9 Hypothyroidism, unspecified (principal); E78.5 Hyperlipidemia, unspecified; D64.9 Anemia, unspecified
CPT/HCPCS: 36415; 80053; 80061; 84439; 84443; 84481; 85025

== ENCOUNTER → 2023-10-24 | Outpatient (CLI) | payer MEDICARE, SELFPAY ==
[2023-10-24 15:19] LABS: Absolute Lymphocyte Count 2.17 X10^3/uL (0.83-4.51); Absolute Neutrophil Count 4.5 X10^3/uL (2.0-7.7); Basophil# 0.04 X10^3/uL; Basophil% 0.5 % (0-1); Eosinophil# 0.23 X10^3/uL; Hematocrit 39.4 % (40-54); Lymphocyte # 2.17 X10^3/ul (0.83-4.51); Lymphocyte % 28.6 % (19-41); Mean Corpuscular Hgb 31.8 pg (27.0-32.0); Mean Corpuscular Volume 96.3 fL (80-94); Mean Platelet Vol. 11.8 fl (6.2-12.0); Monocyte# 0.62 X10^3/uL; Monocyte% 8.2 % (0-10); NRBC Flagged by Analyzer 0 % (0-5); Neutrophil % 59.4 % (47-70); Platelet Count 168 K/mm3 (150-450); RBC Distribution Width CV 12.7 % (11.6-14.6); Red Blood Count 4.09 M/mm3 (4.6-6.2); White Blood Count 7.6 K/mm3 (4.4-11.0)
[2023-10-24 16:44] LABS: Anion Gap 1 (5-15); BUN 24 mg/dL (7-18); BUN/Creat Ratio 14.9 RATIO (10-20); Calcium,Total 9.1 mg/dL (8.5-10.1); Chloride 109 mmol/L (98-107); Creatinine, Serum 1.61 mg/dL (0.70-1.30); EST Glomerular Filtration Rate 44 mL/min (>60); Est Glom Filt Rate - Afr Amer 54 mL/min (>60); Free T3 2.9 pg/mL (2.18-3.98); Glucose 85 mg/dL (74-106); Potassium 3.9 mmol/L (3.5-5.1); Sodium Level 138 mmol/L (136-145); T4 Free Direct 1.65 ng/dL (0.76-1.46); Thyroid Stim Hormone (TSH) 1.78 uIU/mL (0.358-3.74)
== END | disposition home or self-care (01) ==
LOC: MFPLAB 14:04
PROVIDERS: PCP Family Medicine; Visit Provider Family Medicine
DX: E03.9 Hypothyroidism, unspecified (principal); N28.9 Disorder of kidney and ureter, unspecified; D64.9 Anemia, unspecified
CPT/HCPCS: 36415; 80048; 84439; 84443; 84481; 85025

== ENCOUNTER → 2023-11-11 | Outpatient (CLI) | payer MEDICARE, SELFPAY ==
--- NOTE | 2023-11-11 06:56 | ECHOD_ITS ---
Reason For Study: CAD/ASHD Procedure This was a 2D Doppler, Color Flow transthoracic echocardiogram. Exam performed in department. Left Ventricle Normal LV size. Mild concentric left ventricular hypertrophy. Left ventricular systolic function is normal. The estimated ejection fraction is 55 %. Stage 1 diastolic dysfunction. Right Ventricle Normal RV size. Normal systolic function. Atria The left atrium is mildly enlarged. The right atrium is mildly enlarged. Mitral Valve Normal mitral valve. Mild (1+) eccentric mitral valve insufficiency. Tricuspid Valve Normal tricuspid valve. Aortic Valve Trisinus/trileaflet aortic valve. Mild focal aortic valve thickening. Pulmonic Valve Normal pulmonic valve. Great Vessels Normal aortic root. The pulmonary artery is normal size. Normal inferior vena cava. Pericardium/Pleural No pericardial effusion. MMode/2D Measurements & Calculations LVIDd: 5.1 cm IVSd: 1.4 cm Ao root diam: 3.8 cm LVIDs: 3.6 cm LVPWd: 1.3 cm FS: 29.0 % LAV(MOD-bp): 66.4 ml LVAd ap4: 33.1 cm2 SV(MOD-sp4): 51.6 ml LAV(MOD-bp) Indexed: 31.2 ml/m2 LVLd ap4: 8.3 cm LAV(MOD-sp2): 62.2 ml EDV(MOD-sp4): 108.3 ml LAV(MOD-sp4): 72.0 ml EDV(sp4-el): 112.4 ml LVAs ap4: 20.8 cm2 LVLs ap4: 6.5 cm ESV(MOD-sp4): 56.7 ml ESV(sp4-el): 56.9 ml EF(MOD-sp4): 47.6 % EF(sp4-el): 49.4 % SV(sp4-el): 55.5 ml LA A4 area: 23.7 cm2 LA dimension(2D): 4.9 cm RA A4 area: 23.1 cm2 TAPSE: 2.8 cm Time Measurements MV dec time: 0.16 sec Doppler Measurements & Calculations MV E max chad: 56.8 cm/sec Lat Peak E' Chad: 10.8 cm/sec Med Peak E' Chad: 5.9 cm/sec MV A max chad: 85.2 cm/sec E/E' lat: 5.2 E/E' med: 9.7 MV E/A: 0.67 MV V2 max: 85.1 cm/sec Ao V2 max: 175.2 cm/sec MV max P.9 mmHg MV dec slope: 361.1 cm/sec2 Ao max P.3 mmHg MV V2 mean: 54.4 cm/sec Ao V2 mean: 115.5 cm/sec MV mean P.3 mmHg Ao mean P.2 mmHg MV V2 VTI: 27.3 cm Ao V2 VTI: 41.0 cm AV (velocity ratio): 0.59 LV V1 max: 96.6 cm/sec PA V2 max: 135.6 cm/sec LV V1 max P.7 mmHg PA V2 mean: 83.6 cm/sec LV V1 mean P.1 mmHg LV V1 mean: 69.4 cm/sec LV V1 VTI: 24.3 cm ECHO/Echo Complete Interpretation Summary Normal LV size. Left ventricular systolic function is normal. The estimated ejection fraction is 55 %. Stage 1 diastolic dysfunction. Mild (1+) eccentric mitral valve insufficiency. The left atrium is mildly enlarged. The right atrium is mildly enlarged. Ordering Physician: Mac Patricia Referring Physician: Mac Patricia Performed By: Antonella East RCS
--- NOTE | 2023-11-11 14:44 | STRESSREP ---
Stress Test Report Pharmacologic myocardial perfusion stress test. 78-year-old man for preoperative evaluation Resting EKG demonstrates sinus bradycardia with a rate of 51 bpm. Resting blood pressure is 142/72 mmHg. 0.4 mg of regadenoson was infused per usual protocol followed by rapid intravenous saline flush injection. Continuous EKG monitoring was performed. The maximum heart rate was 77 bpm which was 53% of max impacted heart rate the maximum workload was 1 metabolic equivalent. At rest there were no ST or T wave changes noted to suggest ischemia and at peak infusion nonspecific ST changes were noted which did not meet the criteria for ischemia. No clinical angina is noted. The final blood pressure was 150/70 mmHg. Myocardial perfusion protocol. 13.7 mCi of technetium 99m sestamibi was injected at rest. 0.4 mg of regadenoson was infused per usual protocol. At peak infusion 41.6 mCi of technetium 99m sestamibi was injected stress images were obtained stress and rest images were reconstructed and compared in the short axis vertical long and horizontal long axis. Gated images could not be obtained Perfusion SPECT analysis: Review of the stress images demonstrate normal uptake of tracer noted in all areas of the myocardium. The resting images similar demonstrated normal uptake of tracer noted in all areas of the myocardium. No areas of reversibility are noted to suggest ischemia and no previous infarct is noted. Conclusion: Normal pharmacologic myocardial perfusion stress test. Preserved ejection fraction.
== END | disposition home or self-care (01) ==
LOC: CVS 06:55
PROVIDERS: PCP Family Medicine; Referring Provider Internal Medicine Cardiovascular Disease; Visit Provider Internal Medicine Cardiovascular Disease
DX: R07.9 Chest pain, unspecified (principal); Z95.828 Presence of other vascular implants and grafts
CPT/HCPCS: 78452; 93017; 93306; A9500; A4216; J2785

== ENCOUNTER → 2024-04-23 | Outpatient (CLI) | payer MEDICARE, SELFPAY ==
[2024-04-23 15:07] LABS: Absolute Lymphocyte Count 2.29 X10^3/uL (0.83-4.51); Absolute Neutrophil Count 4.5 X10^3/uL (2.0-7.7); Basophil# 0.07 X10^3/uL; Basophil% 0.9 % (0-1); Eosinophil# 0.24 X10^3/uL; Eosinophils% 3.1 % (0-5); Hematocrit 39.4 % (40-54); Hemoglobin 12.6 g/dL (13.0-16.5); Lymphocyte # 2.29 X10^3/ul (0.83-4.51); Lymphocyte % 29.5 % (19-41); Mean Corpuscular Hgb 30.3 pg (27.0-32.0); Mean Corpuscular Volume 94.7 fL (80-94); Mean Platelet Vol. 11.3 fl (6.2-12.0); Monocyte# 0.63 X10^3/uL; Monocyte% 8.1 % (0-10); NRBC Flagged by Analyzer 0 % (0-5); Neutrophil # 4.52 X10^3/uL (2.7-7.7); Neutrophil % 58.1 % (47-70); Platelet Count 196 K/mm3 (150-450); RBC Distribution Width CV 13.4 % (11.6-14.6); RBC Distribution Width SD 46.1 fl (35.1-43.9); Red Blood Count 4.16 M/mm3 (4.6-6.2); White Blood Count 7.8 K/mm3 (4.4-11.0)
[2024-04-23 15:36] LABS: Anion Gap 5 (5-15); BUN 24 mg/dL (7-18); BUN/Creat Ratio 15.4 RATIO (10-20); Calcium,Total 9.2 mg/dL (8.5-10.1); Chloride 108 mmol/L (98-107); Cholesterol 170 mg/dL (200); Creatinine, Serum 1.56 mg/dL (0.70-1.30); EST Glomerular Filtration Rate 46 mL/min (>60); Est Glom Filt Rate - Afr Amer 56 mL/min (>60); Ferritin 44 ng/mL (26-388); Free T3 2.8 pg/mL (2.18-3.98); Glucose 86 mg/dL (74-106); High Density Lipoprotein 40 mg/dL; Iron 73 ug/dL (65-175); Potassium 4.2 mmol/L (3.5-5.1); Sodium Level 140 mmol/L (136-145); T4 Free Direct 1.33 ng/dL (0.76-1.46); Triglycerides 149 mg/dL; Very Low Density Lipoprotein 30 mg/dL (5-40)
== END | disposition home or self-care (01) ==
LOC: MFPLAB 13:56
PROVIDERS: PCP Family Medicine; Visit Provider Family Medicine
DX: E78.5 Hyperlipidemia, unspecified (principal); D64.9 Anemia, unspecified; N28.9 Disorder of kidney and ureter, unspecified; E03.9 Hypothyroidism, unspecified
CPT/HCPCS: 36415; 80048; 80061; 82728; 83540; 84439; 84443; 84481; 85025

== ENCOUNTER → 2024-05-11 | Outpatient (CLI) | payer MEDICARE, SELFPAY ==
[2024-05-11 15:41] LABS: Absolute Lymphocyte Count 1.98 X10^3/uL (0.83-4.51); Absolute Neutrophil Count 4.6 X10^3/uL (2.0-7.7); Basophil# 0.05 X10^3/uL; Basophil% 0.7 % (0-1); Eosinophil# 0.23 X10^3/uL; Eosinophils% 3.1 % (0-5); Hematocrit 38.4 % (40-54); Hemoglobin 12.5 g/dL (13.0-16.5); Lymphocyte # 1.98 X10^3/ul (0.83-4.51); Lymphocyte % 26.8 % (19-41); Mean Corp Hgb Conc 32.6 g/dL (32-36); Mean Corpuscular Hgb 30.6 pg (27.0-32.0); Mean Corpuscular Volume 93.9 fL (80-94); Monocyte# 0.57 X10^3/uL; Monocyte% 7.7 % (0-10); NRBC Flagged by Analyzer 0 % (0-5); Neutrophil # 4.55 X10^3/uL (2.7-7.7); Neutrophil % 61.4 % (47-70); Platelet Count 182 K/mm3 (150-450); RBC Distribution Width CV 13.4 % (11.6-14.6); RBC Distribution Width SD 45.7 fl (35.1-43.9); Red Blood Count 4.09 M/mm3 (4.6-6.2); White Blood Count 7.4 K/mm3 (4.4-11.0)
[2024-05-11 16:11] LABS: PTHIN 58.5 pg/mL (18.4-80.1)
[2024-05-11 16:14] LABS: Vitamin D,25 Hydroxy 44.8 ng/mL
[2024-05-11 16:25] LABS: Albumin, Serum 3.6 g/dL (3.2-5.0); BUN 19 mg/dL (7-18); BUN/Creat Ratio 13.2 RATIO (10-20); Calcium,Total 9.3 mg/dL (8.5-10.1); Chloride 107 mmol/L (98-107); Creatinine, Serum 1.44 mg/dL (0.70-1.30); EST Glomerular Filtration Rate 50 mL/min (>60); Est Glom Filt Rate - Afr Amer 61 mL/min (>60); Glucose 96 mg/dL (74-106); Phosphorus 3.3 mg/dL (2.5-4.9); Potassium 4.5 mmol/L (3.5-5.1); Sodium Level 140 mmol/L (136-145)
[2024-05-11 17:18] LABS: Protein, Urine (Random) 58.4 mg/dL (<11.9); Protein:Creat Ratio 212 mg/g CRE (0-200)
== END | disposition home or self-care (01) ==
LOC: LAB 14:31
PROVIDERS: PCP Family Medicine; Referring Provider Internal Medicine Nephrology; Visit Provider Internal Medicine Nephrology
DX: N18.4 Chronic kidney disease, stage 4 (severe) (principal); D64.9 Anemia, unspecified
CPT/HCPCS: 36415; 80069; 82306; 82570; 83970; 84156; 85025

== ENCOUNTER → 2024-10-22 | Outpatient (CLI) | payer MEDICARE, SELFPAY ==
[2024-10-22 15:25] LABS: Absolute Lymphocyte Count 2.34 X10^3/uL (0.83-4.51); Absolute Neutrophil Count 3.8 X10^3/uL (2.0-7.7); Basophil# 0.05 X10^3/uL; Basophil% 0.7 % (0-1); Eosinophils% 2.9 % (0-5); Hematocrit 38.2 % (40-54); Lymphocyte # 2.34 X10^3/ul (0.83-4.51); Lymphocyte % 34.2 % (19-41); Mean Corpuscular Volume 94.1 fL (80-94); Mean Platelet Vol. 11.8 fl (6.2-12.0); Monocyte# 0.49 X10^3/uL; Monocyte% 7.2 % (0-10); NRBC Flagged by Analyzer 0 % (0-5); Neutrophil # 3.76 X10^3/uL (2.7-7.7); Neutrophil % 54.9 % (47-70); Platelet Count 166 K/mm3 (150-450); RBC Distribution Width CV 12.8 % (11.6-14.6); RBC Distribution Width SD 44.5 fl (35.1-43.9); Red Blood Count 4.06 M/mm3 (4.6-6.2); White Blood Count 6.9 K/mm3 (4.4-11.0)
[2024-10-22 18:18] LABS: ALB/GLOB Ratio 1.3 RATIO (0.9-2.4); AST(SGOT) 24 U/L (<=37); Alanine Aminotransfer ALT/SGPT 6 U/L (<=46); Albumin, Serum 4.2 g/dL (3.4-4.8); Alkaline Phosphatase 64 U/L (40-129); Anion Gap 11 (5-15); BUN 24 mg/dL (4-19); BUN/Creat Ratio 17.1 RATIO (10-20); Calcium,Total 9.3 mg/dL (7.6-11.0); Carbon Dioxide 23.4 mmol/L (21.0-32.0); Chloride 106 mmol/L (98-108); Cholesterol 160 mg/dL (<=200); Creatinine, Serum 1.43 mg/dL (0.70-1.20); EST Glomerular Filtration Rate 50 (>60); Free T3 2.3 pg/mL (2.18-3.98); Globulin 3.2 g/dL (2.2-4.2); Glucose 77 mg/dL (70-99); High Density Lipoprotein 43 mg/dL; Low Density Lipoprotein Calc. 94 mg/dL; Protein, Total 7.3 g/dL (5.9-8.4); Sodium Level 141 mmol/L (133-145); Total Bilirubin 0.43 mg/dL (0.00-1.30); Triglycerides 113 mg/dL; Very Low Density Lipoprotein 23 mg/dL (5-40)
== END | disposition home or self-care (01) ==
LOC: MFPLAB 14:07
PROVIDERS: PCP Family Medicine; Referring Provider Family Medicine; Visit Provider Family Medicine
DX: E03.9 Hypothyroidism, unspecified (principal); D64.9 Anemia, unspecified; E78.5 Hyperlipidemia, unspecified
CPT/HCPCS: 36415; 80053; 80061; 84439; 84443; 84481; 85025

== ENCOUNTER → 2025-04-22 | Outpatient (CLI) | payer MEDICARE, SELFPAY ==
[2025-04-22 19:40] LABS: AST(SGOT) 27 U/L (<=37); Alanine Aminotransfer ALT/SGPT 11 U/L (<=46); Albumin, Serum 4.3 g/dL (3.4-4.8); Alkaline Phosphatase 64 U/L (40-129); Anion Gap 9 (5-15); BUN 22 mg/dL (4-19); BUN/Creat Ratio 15.2 RATIO (10-20); Calcium,Total 9.5 mg/dL (7.6-11.0); Carbon Dioxide 27.4 mmol/L (21.0-32.0); Chloride 104 mmol/L (98-108); Cholesterol 183 mg/dL (<=200); Globulin 3.1 g/dL (2.2-4.2); Glucose 92 mg/dL (70-99); Low Density Lipoprotein Calc. 108 mg/dL; Potassium 4.3 mmol/L (3.3-5.1); Triglycerides 172 mg/dL; Very Low Density Lipoprotein 34 mg/dL (5-40); cholesterol:hdl ratio screen 4.53
[2025-04-27 17:17] LABS: Free T3 2.4 pg/mL (2.18-3.98)
== END | disposition home or self-care (01) ==
LOC: MFPLAB 14:00
PROVIDERS: PCP Family Medicine; Visit Provider Family Medicine
DX: I10 Essential (primary) hypertension (principal)
CPT/HCPCS: 36415; 80053; 80061; 84439; 84443; 84481

== ENCOUNTER → 2025-05-11 | Outpatient (CLI) | payer MEDICARE, SELFPAY ==
[2025-05-11 16:08] LABS: Hematocrit 40.6 % (40-54); Hemoglobin 13.7 g/dL (13.0-16.5); Mean Corp Hgb Conc 33.7 g/dL (32-36); Mean Corpuscular Volume 95.3 fL (80-94); Mean Platelet Vol. 11.3 fl (6.2-12.0); Platelet Count 168 K/mm3 (150-450); RBC Distribution Width CV 12.3 % (11.6-14.6); RBC Distribution Width SD 42.9 fl (35.1-43.9); Red Blood Count 4.26 M/mm3 (4.6-6.2); White Blood Count 7.0 K/mm3 (4.4-11.0)
[2025-05-11 16:42] LABS: PTHIN 39 pg/mL (11-61)
[2025-05-11 16:45] LABS: Creatinine, Urine (random) 236.00 mg/dL (39.00-259.00); Protein, Urine (Random) 64.0 mg/dL (0.0-12.0); Protein:Creat Ratio 271 mg/g CRE (0-200)
[2025-05-11 16:59] LABS: Albumin, Serum 4.2 g/dL (3.4-4.8); Anion Gap 8 (5-15); BUN 23 mg/dL (4-19); BUN/Creat Ratio 16.2 RATIO (10-20); Calcium,Total 9.2 mg/dL (7.6-11.0); Carbon Dioxide 26.6 mmol/L (21.0-32.0); Chloride 106 mmol/L (98-108); Glucose 107 mg/dL (70-99); Potassium 4.1 mmol/L (3.3-5.1); Vitamin D,25 Hydroxy 41.5 ng/mL (30-100)
== END | disposition home or self-care (01) ==
LOC: LAB 15:31
PROVIDERS: PCP Family Medicine; Referring Provider Internal Medicine Nephrology; Visit Provider Internal Medicine Nephrology
DX: N18.4 Chronic kidney disease, stage 4 (severe) (principal)
CPT/HCPCS: 36415; 80069; 82306; 82570; 83970; 84156; 85027